=== PATIENT | male | born 1950 | race Caucasian/White ===

== ENCOUNTER → 2021-09-25 | Day surgery (SDC) | payer MEDICARE, OTHER ==
[~2021-09-25] MED LIST: ALPRAZolam 0.25 MG TAB PO PRN; ALPRAZolam 0.5 MG TAB PO PRN; ASPIRIN 325 MG TAB PO ONE; ASPIRIN 81 MG PO SCH; ATORVASTATIN 20 MG TAB PO SCH; ATORVASTATIN 80 MG TAB PO ONE; HEPARIN SODIUM 1,000 UN/ML (10ML VL) IV ONE; HEPARIN SODIUM 1,000 UN/ML (10ML VL) ONE; HEPARIN SODIUM,PORCINE 10,000 UNIT in SODIUM CHLORIDE 0.9% 1,000 ML IRRIGATION PRN; HEPARIN SODIUM,PORCINE 2,500 UNIT in SODIUM CHLORIDE 0.9% 250 ML IRRIGATION PRN; IOPAMIDOL-370 125ML BTL INJ ONE; LIDOCAINE 1% INJ 10MG/ML (5 ML VIAL-PF) SQ ONE; LISINOPRIL-HCTZ 10-12.5 MG 1 EACH TAB PO SCH; METOPROLOL TARTRATE 25 MG TAB PO SCH; MIDAZOLAM 2 MG/2 ML VIAL IV ONE; NITROGLYCERIN SL TABS 0.4 MG TAB SUBLINGUAL PRN; RX INFO: IV CONTRAST WAS GIVEN 1 EACH MISC MISCELLANE PRN; SODIUM CHLORIDE 0.9% 1,000 ML IV ONE; SODIUM CHLORIDE 0.9% 1,000 ML IV SCH; SODIUM CHLORIDE 0.9% 1,000 ML in EMPTY BAG 1 BAG IV SCH; VERAPAMIL 2.5 MG/ML 2 ML AMP ONE; VERAPAMIL SYRINGE (5 MG/10 ML) INTRAARTER ONE; fentaNYL (PF) 50 MCG/ML 2 ML AMP IV ONE; fentaNYL (PF) 50 MCG/ML 2 ML AMP ONE
[2021-09-25 06:36] VITALS: RESP 16; TEMP 98.1
--- NOTE | 2021-09-25 08:15 | P.CARDCATH ---
Date of Procedure: 09/25/21 Description of Procedure: Cardiac Catheterization: The patient is a 71-year-old male with a known history of hypertension and hyperlipidemia who is scheduled to undergo prostate surgery. He underwent an MPI that showed significant stress-induced ischemia in view of that further evaluation was recommended. Recommendations were made regarding cardiac catheterization, the risks and the complications were discussed with the patient who is in full understanding and agreement. Procedure Description: Patient was brought to microbiology lab manager in fasting semi-sedated state after receiving Fentanyl and Benadryl achieiving moderate conscious sedated state. Using Xylocaine Anesthesia and Seldinger technique, a 6-Swedish sheath was introduced in the right radial artery . Subsequently, selective coronary angiography was performed using a 5-Swedish 3.5 bend Anat catheter. Multiple views of the coronary artery including hemiaxial views were obtained. The 5-Swedish pigtail catheter was used to cross the aortic valve and LVEDP was calculated. Left ventriculogram was obtained. Following that, catheter and sheath were removed. Hemostasis was obtained with deployment of TR band . There was no immediate complication. Patient was returned to room in stable condition. Of note, the patient received a total of 4500 units of intravenous heparin as well as intra-arterial verapamil. There was no immediate complications. Findings: Left main: This is a large size vessel, bifurcating into LAD and left circumflex, the distal left main has 10-20% plaque LAD: This vessel has a 99% stenosis proximally following that has diffuse intimal disease until the takeoff of the first diagonal branch that has a 80% stenosis at the takeoff, the LAD with minimal antegrade flow. Left circumflex: This is a nondominant vessel giving rise to 2 obtuse marginal branch, the second one is larger in caliber, after the takeoff of the first diagonal branch there is an eccentric 70% stenosis, the rest of the vessel has no high-grade stenosis. RCA: This is a large dominant vessel, bifurcating into PDA and PLV. The mid RCA has an 80% stenosis, the ostium of the PDA has a 90% stenosis. Collaterals there is collaterals from the RCA to what the LAD as well as ipsilateral collateral Left Ventriculogram: Was performed in the 30 RED view and showed a normal left ventricle size and systolic function, ejection fraction is about 60% Hemodynamics: There was no gradient across the aortic valve, LVEDP 12-16 mmHg Conclusion: 1. Chronically occluded mid LAD severe stenosis proximally and significant stenosis in the first branch 2. Severe stenosis in the RCA 3. Severe disease in the left circumflex 4. Normal left ventricle size and systolic function. Recommendations: In view of the anatomy have recommended to proceed with evaluation for coronary artery bypass grafting. The anterior wall is viable. The findings and recomm endations were discussed with the patient and his family and they are in full understanding and agreement. We will obtain the input of the surgical team. Duration of sedation is 22 minutes.
--- NOTE | 2021-09-25 09:49 | P.GSCN ---
History of Present Illness Consult date: 09/25/21 Reason for Consult: Triple vessel coronary artery disease Requesting physician: Dimitris Diaz History of present illness: This is a 71-year-old active gentleman who follows on an outpatient basis with Dr. Lyn for primary care and Dr. Diaz for cardiology. He has a previous medical history of hypertension, hyperlipidemia, recent diagnosis of prostate cancer, covid positive in July 2021 although asymptomatic at the time and received no treatment, vaccinated and boosted, and never smoker. This gentleman was preparing for prostatectomy next week and needed cardiac clearance. He underwent stress testing which was abnormal suggesting stress induced ischemia involving the inferoapical and septal wall consistent with stress-induced ischemia in the RCA territory. The patient reports no symptoms of chest pain or shortness of breath, states he walks approximately 2 miles per day without difficulty. He was recommended to undergo heart catheterization which was completed today and which demonstrated proximal LAD stenosis 99% with diffuse intimal disease until the takeoff of the first diagonal branch that has 80% stenosis, 70% stenosis to the circumflex after the takeoff of the first branch, mid RCA with 80% stenosis and ostium of the PDA with 90% stenosis. LV gram was performed demonstrating normal left ventricular size and function with ejection fraction approximate 60%, no gradient across the aortic valve, and LVEDP 12-16 mmHg. Due to these findings consultation was placed to Dr. Driscoll from cardiothoracic surgery for surgical revascularization recommendations. Of note the patient did have a transthoracic echocardiogram in March 2021 demonstrating normal left ventricular size and function with EF 65%, no regional wall motion abnormalities, grade 1 diastolic dysfunction, and no valvular pathology. Covid test was obtained upon arrival to extended stay with PCR positive. Patient reports no symptoms. Review of Systems Review of systems was completed and was negative - Cardiovascular Cardiovascular Comment(s): Denies any chest pain, shortness of breath, dizziness, weakness, lower extremity edema Past Medical History Past Medical History: Coronary Artery Disease (CAD), Cancer, Hyperlipidemia, Hypertension Additional Past Medical History / Comment(s): prostate cancer; positive Covid PCR in July 2019, and 09/25/2021 History of Any Multi-Drug Resistant Organisms: None Reported Past Surgical History: No Surgical Hx Reported, Heart Catheterization Additional Past Surgical History / Comment(s): colonoscopy; heart catheterization 09/25/2021 Past Anesthesia/Blood Transfusion Reactions: No Reported Reaction Past Psychological History: No Psychological Hx Reported Smoking Status: Never smoker Past Alcohol Use History: Rare Additional Past Alcohol Use History / Comment(s): Drinks 1-2 glasses of wine per week Past Drug Use History: None Reported - Past Family History Mother Family Medical History: No Reported History Father Family Medical History: No Reported History Medications and Allergies Home Medications Medication Instructions Recorded Confirmed Type Aspirin 81 mg PO DAILY 09/24/21 09/25/21 History Atorvastatin [Lipitor] 20 mg PO DAILY 09/24/21 09/25/21 History Lisinopril-Hctz 10-12.5 mg 1 tab PO DAILY 09/24/21 09/25/21 History [Zestoretic 10-12.5] Metoprolol Tartrate [Lopressor] 25 mg PO BID #180 tablet 09/25/21 09/25/21 Rx Allergies Allergy/AdvReac Type Severity Reaction Status Date / Time No Known Allergies Allergy Verified 09/25/21 15:16 Surgical - Exam Vital Signs Temp Pulse Resp BP Pulse Ox 98.1 F 76 16 123/65 99 09/25/21 06:34 09/25/21 06:34 09/25/21 06:34 09/25/21 06:34 09/25/21 06:34 CONSTITUTIONAL: Awake and alert, appears comfortable, cooperative, well- developed, well-nourished, no pain, no acute distress EYES: Pupils equal, round, reactive to light, normal ocular movement ENT: Moist mucous membranes without oral lesions present NECK: No masses, no bruits, trachea midline RESPIRATORY: Lungs sounds clear to auscultation bilaterally. Respirations even, nonlabored. Currently on room air with oxygen saturation 97%. Strong cough. No chest wall deformities. No clubbing or cyanosis present CARDIOVASCULAR: S1, S2 present. Regular rate and rhythm, sinus rhythm on telemetry. Palpable peripheral pulses bilaterally. No edema present. No calf pain or tenderness noted. No significant lower extremity varicosities noted. Left radial Armen's test less than 8 seconds by pulse oximetry. GASTROINTESTINAL: Abdomen soft, nontender, nondistended without masses or organomegaly noted. There is no rebound or guarding present. Active bowel sounds present 4 quadrants. GENITOURINARY: Deferred INTEGUMENTARY: Skin is warm and dry with evidence of good perfusion. NEUROLOGIC: Cranial nerves II through XII intact, normal coordination, no obvious motor or sensory deficits, speech is normal MUSKULOSKELETAL: Able to move all extremities, strength equal bilaterally, normal posture PSYCHIATRIC: Alert and oriented to person place and time, appropriate affect, intact judgment and insight Results - Labs Abnormal Lab Results - Last 24 Hours (Table) 09/25/21 Range/Units 06:10 Coronavirus (PCR) Detected A (Not Detectd) - Imaging Additional studies: Heart catheterization films reviewed Assessment and Plan Assessment: 1. Triple-vessel coronary artery disease 2. History of hypertension, treated 3. History of hyperlipidemia, treated, cholesterol 154, LDL 95 4. Never smoker 5. History of asymptomatic Covid diagnosis in July 2021, as well as positive Covid PCR 09/25/2021 Plan: The patient was seen and examined at the bedside with Dr. Lee. Chart/diagnostics were reviewed. The case will be discussed in detail with Dr. Driscoll. The usual perioperative course of coronary artery bypass surgery was discussed in detail with the patient and his , risks and benefits reviewed, questions were answered. All lab work was obtained prior to heart catheterization. We will order vein mapping and radial artery mapping, carotid Dopplers, pulmonary function tests, and a CT of the chest without contrast. Once testing has been completed the patient may be discharged home to follow up outpatient for surgery. Dr. Driscoll will be here this afternoon, if the patient is still in the hospital he will meet with the patient today, otherwise we will see on an outpatient basis soon. Recommend continue aspirin, statin, beta adriane therapy added per Dr. Diaz. We will calculate STS risk score and discuss with the patient. More recommendations to follow regarding timing of surgery. Thank you Dr. Diaz for this consult. I have personally seen and examined the patient, performed the documentation and the assessment and plan as written. Number of minutes spent on the visit: 30. EMELI Schultz The patient is a 71 year old asymptomatic male who was undergoing cardiac clearance for surgical treatment of prostate cancer. His stress test was found to be abnormal. Cardiac cath revealed multi-vessel coronary artery disease. A coronary artery bypass was recommended. The risks, benefits, and alternatives to this procedure were discussed with the patient. All of his questions were answered. Pre-op workup is complete and was personally reviewed. Plan for surgery on 09/28/2021 as an outpatient. I have personally seen and examined the patient, reviewed the documentation and the assessment and plan as written. Number of minutes spent on the visit: 45. Alex Driscoll M.D.
[2021-09-25 10:01] LABS: Appearance,Urine Clear (Clear); Bilirubin,Urine Negative (Negative); Blood,Urine Negative (Negative); Color,Urine Colorless; Glucose,Urine (UA) Negative (Negative); Ketones,Urine Negative (Negative); Leukocyte Esterase,Urine Negative (Negative); Nitrite,Urine Negative (Negative); PH, Urine 5.5 (5.0-8.0); Protein,Urine Negative (Negative); Specific Gravity,Urine 1.021 (1.001-1.035); Urobilinogen,Urine <2.0 mg/dL (<2.0)
--- NOTE | 2021-09-25 11:02 | CT ---
EXAMINATION TYPE: CT chest wo con DATE OF EXAM: 09/25/2021 COMPARISON: None HISTORY: 71-year-old male Evaluate aorta pre CABG TECHNIQUE: Contiguous axial scanning of the chest without IV contrast. Coronal and sagittal reconstru ctions performed. CT DLP: 292.7 mGycm Automated exposure control for dose reduction was used. FINDINGS: Heart normal size without pericardial effusion. Three-vessel coronary artery calcifications are prese nt. Ascending aorta normal caliber up to 3.3 cm. There is conventional arterial some branching anatomy. O nly a couple foci of atherosclerotic calcification are present in the thoracic aorta. Upper descendin g thoracic aorta normal caliber at 2.4 cm. Lower descending thoracic aorta normal caliber at 2.0 cm. Mild dependent atelectasis in the lungs. Some strandy atelectasis inferior lingula. No consolidation or pleural effusion. Prominent ingested debris distending the stomach within the visualized upper abdomen. A couple puncta te nonobstructive 2 mm calculi are noted in the upper pole of the right kidney. Bones: Mild anterior endplate spondylosis lower thoracic spine. IMPRESSION: 1. ONLY A COUPLE FOCI OF ATHEROSCLEROTIC CALCIFICATION IN THE THORACIC AORTA. CONVENTIONAL ARCH VESSE L BRANCHING ANATOMY. NO ANEURYSM IS SEEN. 2. CAD WITH THREE-VESSEL CORONARY ARTERY CALCIFICATIONS.
--- NOTE | 2021-09-25 11:44 | US ---
EXAMINATION TYPE: US carotid duplex BILAT DATE OF EXAM: 09/25/2021 COMPARISON: NONE CLINICAL HISTORY: preop cardiac surgery. EXAM MEASUREMENTS: RIGHT: Peak Systolic Velocity (PSV) cm/sec ----- Right CCA: 145 ----- Right ICA: 119 ----- Right ECA: 119 ICA/CCA ratio: .82 RIGHT: End Diastole cm/sec ----- Right CCA: 26.0 ----- Right ICA: 33.4 ----- Right ECA: 16.2 LEFT: Peak Systolic Velocity (PSV) cm/sec ----- Left CCA: 157 ----- Left ICA: 108 ----- Left ECA: 87.2 ICA/CCA ratio: 0.68 LEFT: End Diastole cm/sec ----- Left CCA: 23.0 ----- Left ICA: 14.8 ----- Left ECA: 8.2 VERTEBRALS (direction of flow): Right Vertebral: Antegrade Left Vertebral: Antegrade Rhythm: Normal Elevated velocities in CCA with no significant velocity increases in ICA's seen bilaterally. Suspect mild to moderate peripheral plaque in right carotid bulb. IMPRESSION: No hemodynamically significant stenosis in either internal carotid artery. Suspect und erlying uncontrolled hypertension due to elevated velocities bilateral common carotid arteries. Criteria for Assigning % of Stenosis / Diameter reduction (Estimation based on the indirect measurements of the internal carotid artery velocities (ICA PSV). 1. Normal (no stenosis)=ICA PSV < 125 cm/s: ratio < 2.0: ICA EDV<40 cm/s. 2. Less than 50% stenosis=ICA PSV < 125 cm/s: ratio < 2.0: ICA EDV<40 cm/s. 3. 50 to 69% stenosis=ICA PSV of 125 to 230 cm/s: ration 2.0 ? 4.0: ICA EDV 40-100 cm/s. 4. Greater than 70% stenosis to near occlusion= ICA PSV > 230 cm/s: ratio > 4.0: ICA EDV > 100 cm/s. 5. Near occlusion= ICA PSV velocities may be low or undetectable: variable ratio and ICA EDV. 6. Total occlusion=unable to detect flow.
[2021-09-25 12:38] VITALS: BP 138/85; PULSE 78
--- NOTE | 2021-09-26 06:42 | US ---
EXAMINATION TYPE: US vein mapping BIL DATE OF EXAM: 09/25/2021 11:13 AM COMPARISON: NONE CLINICAL HISTORY: preop cardiac surgery. SIDE PERFORMED: Bilateral TECHNIQUE: Lower extremity saphenous vein is examined and measured utilizing real time linear array sonography. Patient History: Smoker: no Heart Disease: no Previous DVT: no Vascular Surgery: no Discoloration: no Hypertension: yes Diabetes: no Paralysis: no Varicosities: no Edema: no DUPLEX FINDINGS: Greater Saphenous: Color flow seen Measurements in mm: Right Greater Saphenous: Groin: 6.5 x 4.1 mm High Thigh: 5.2 x 4.0 mm Mid Thigh: 2.6 x 2.2 mm Above Knee: 2.9 x 2.2 mm Knee: 3.0 x 3.1 mm Below Knee: 2.8 x 2.4 mm Mid Calf: 2.9 x 2.1 mm At Ankle: 2.3 x 1.5 mm Left Greater Saphenous: Groin: 4.7 x 4.2 mm High Thigh: 4.5 x 4.4 mm Mid Thigh: 4.6 x 3.9 mm Above Knee: 4.3 x 3.8 mm Knee: 3.6 x 3.3 mm Below Knee: 2.9 x 2.7 mm Mid Calf: 2.9 x 2.8 mm At Ankle: 2.3 x 1.8 mm IMPRESSION: 1. Bilateral GSV measurements listed above. 2. Performing surgeon to determine viability as conduit.
--- NOTE | 2021-09-26 06:43 | US ---
EXAMINATION TYPE: Pre-Operative Non-Invasive Evaluation of the hand for Potential Radial Artery Elias boggs, Measurements only DATE OF EXAM: 09/25/2021 11:13 AM CLINICAL HISTORY: measurements only. Precardiac surgery. SIDE PERFORMED: Left TECHNIQUE: Radial artery is measured utilizing real time linear array sonography. Dominant hand: Duplex Findings: Radial Artery: Color flow seen Measurements in mm, transverse view: Ordered left only Proximal: unable to visualize due to IV's Mid: 2.3 x 2.1 mm Distal: 2.5 x 2.2 mm IMPRESSION: 1. Left radial artery measurements listed above. 2. Performing surgeon to determine viability as conduit.
== END | disposition home or self-care (01) ==
LOC: CATHCVL 05:42
PROVIDERS: ATTEND Internal Medicine Interventional Cardiology
DX: I25.10 Atherosclerotic heart disease of native coronary artery without angina pectoris (principal); R94.39 Abnormal result of other cardiovascular function study; C61 Malignant neoplasm of prostate; I10 Essential (primary) hypertension; E78.2 Mixed hyperlipidemia; Z20.822 Contact with and (suspected) exposure to COVID-19; Z86.16 Personal history of COVID-19; Z87.891 Personal history of nicotine dependence; Z79.82 Long term (current) use of aspirin; Z79.899 Other long term (current) drug therapy
CPT/HCPCS: 94150; 93458; 86900; 86901; 86850; 86920; 81003; 87070; 87635; 93931; 93970; 93880; 71250; C1769 ×2; C1894; J2250; J2001; J3010; J1644; Q9967

== ENCOUNTER 2021-09-28 05:36 | Inpatient (IN) | payer MEDICARE, OTHER ==
[2021-09-25 15:54] VITALS: BMI 25.8
[2021-09-28] MEDS ORDERED: NITROGLYCERIN SL TABS 0.4 MG TAB SUBLINGUAL ONE (06:00)
[2021-09-28] MEDS ORDERED: NITROGLYCERIN-D5W PMX 25 MG/250 ML BTL IV ONE (06:00)
[2021-09-28] MEDS ORDERED: ceFAZolin 1,000 MG in SODIUM CHLORIDE 0.9% IRRIGATIO 1,000 ML IRRIGATION ONE (06:00)
[2021-09-28] MEDS ORDERED: METOPROLOL TARTRATE 12.5 MG TAB PO ONE (06:00)
[2021-09-28] MEDS ORDERED: ALBUMIN HUMAN 5% 500 ML IVPB ONE (06:00)
[2021-09-28] MEDS ORDERED: ELECTROLYTE-A SOLUTION 1,000 ML with POTASSIUM CHLORIDE 40 MEQ, MAGNESIUM SULFATE 16 ME... IV ONE ×5 (06:00)
[2021-09-28] MEDS ORDERED: PAPAVERINE 360 MG in SODIUM CHLORIDE 0.9% 90 ML IV ONE (06:00)
[2021-09-28] MEDS ORDERED: PROTAMINE SULFATE 250 MG in EMPTY BAG 1 BAG IV ONE (06:00)
[2021-09-28] MEDS ORDERED: CALCIUM CHLORIDE 100 MG/ML 10 ML SYRINGE IV ONE (06:00)
[2021-09-28] MEDS ORDERED: PHENYLEPHRINE 10 MG/ML VIAL IV ONE (06:00)
[2021-09-28] MEDS ORDERED: NITROGLYCERIN-D5W PMX 50 MG in DEXTROSE/WATER 1 250ML.BAG IV ONE (06:00)
[2021-09-28] MEDS ORDERED: CLEVIDIPINE BUTYRATE 25 MG in EMPTY BAG 1 BAG IV ONE (06:00)
[2021-09-28] MEDS ORDERED: LACTATED RINGERS 1,000 ML IV ONE (06:00)
[2021-09-28] MEDS ORDERED: HEPARIN SODIUM,PORCINE 5,000 UNIT in SODIUM CHLORIDE 0.9% 500 ML 500 ML IV ONE (06:00)
[2021-09-28] MEDS ORDERED: TRANEXAMIC ACID 2,000 MG in SODIUM CHLORIDE 0.9% 80 ML IV ONE ×4 (06:00)
[2021-09-28] MEDS ORDERED: HEPARIN SODIUM 1,000 UN/ML (10ML VL) IV ONE (06:00)
[2021-09-28] MEDS ORDERED: ATORVASTATIN 10 MG TAB PO ONE (06:00)
[2021-09-28] MEDS ORDERED: propofoL 1,000 MG/100 ML VIAL IV ONE (06:00)
[2021-09-28] MEDS ORDERED: CHLORHEXIDINE GLUCONATE 15 ML CUP MUCOUS MEM ONE (06:00)
[2021-09-28] MEDS ORDERED: DILTIAZEM 125 MG in SODIUM CHLORIDE 0.9% 100 ML IV ONE (06:00)
[2021-09-28] MEDS ORDERED: ASPIRIN 325 MG TAB PO ONE (06:00)
[2021-09-28] MEDS ORDERED: MUPIROCIN 2% OINT 22 GM TUBE NASAL ONE (06:00)
[2021-09-28] MEDS ORDERED: MANNITOL 25% 12.5 GM/50 ML VIAL IV ONE (06:00)
[2021-09-28] MEDS ORDERED: ALBUMIN HUMAN 25% 50 ML IV ONE (06:00)
[2021-09-28] MEDS ORDERED: ELECTROLYTE-A SOLUTION 1,000 ML with POTASSIUM CHLORIDE 100 MEQ, MAGNESIUM SULFATE 16 M... IV ONE ×5 (06:00)
[2021-09-28] MEDS ORDERED: MAGNESIUM SULFATE 16.24 MEQ in EMPTY SYRINGE 1 SYR IV ONE (06:00)
[2021-09-28] MEDS ORDERED: PHENYLEPHRINE 40 MG in SODIUM CHLORIDE 0.9% 250 ML IV ONE (06:00)
[2021-09-28] MEDS ORDERED: PROTAMINE SULFATE 10 MG/ML 25 ML VIAL IV ONE (06:00)
[2021-09-28] MEDS ORDERED: INSULIN REGULAR 100 UNIT in SODIUM CHLORIDE 0.9% 100 ML IV ONE (06:00)
[2021-09-28] MEDS ORDERED: SODIUM BICARB 8.4% 50 ML SYR (1 MEQ/ML) IV ONE (06:00)
[2021-09-28] MEDS ORDERED: SODIUM CHLORIDE 0.9% 1,000 ML IV ONE (06:00)
[2021-09-28] MEDS ORDERED: NOREPINEPHRINE 4 MG in SODIUM CHLORIDE 0.9% 250 ML IV ONE (06:00)
[2021-09-28 06:02] VITALS: BP 133/79; PULSE 64; RESP 16; TEMP 97.6
== END 2021-09-28 08:42 | disposition home or self-care (01) | DRG 302 ==
LOC: 2ORMAIN 05:36
PROVIDERS: ADMIT Surgery; ATTEND Surgery
DX: I25.10 Atherosclerotic heart disease of native coronary artery without angina pectoris (principal); U07.1 COVID-19; Z53.09 Procedure and treatment not carried out because of other contraindication; I10 Essential (primary) hypertension; E78.5 Hyperlipidemia, unspecified; Z85.46 Personal history of malignant neoplasm of prostate
CPT/HCPCS: 71250; 81003; 86850; 86900; 86901; 86920; 87070; 87635; 93458; 93880; 93970; 94150

== ENCOUNTER 2021-10-01 05:44 | Inpatient (IN) | payer MEDICARE, OTHER ==
[~2021-10-01 05:44] MED LIST changes: +ALBUMIN HUMAN 25% 50 ML IV ONE; +ALBUMIN HUMAN 5% 500 ML IVPB ONE; -ALPRAZolam 0.25 MG TAB PO PRN; -ALPRAZolam 0.5 MG TAB PO PRN; -ASPIRIN 81 MG PO SCH; +ATORVASTATIN 10 MG TAB PO ONE; -ATORVASTATIN 20 MG TAB PO SCH; -ATORVASTATIN 80 MG TAB PO ONE; +CALCIUM CHLORIDE 100 MG/ML 10 ML SYRINGE IV ONE; +CHLORHEXIDINE GLUCONATE 15 ML CUP MUCOUS MEM ONE; +CLEVIDIPINE BUTYRATE 25 MG in EMPTY BAG 1 BAG IV ONE; +DILTIAZEM 125 MG in SODIUM CHLORIDE 0.9% 100 ML IV ONE; +ELECTROLYTE-A SOLUTION 1,000 ML with POTASSIUM CHLORIDE 100 MEQ, MAGNESIUM SULFATE 16 M... IV ONE; +ELECTROLYTE-A SOLUTION 1,000 ML with POTASSIUM CHLORIDE 40 MEQ, MAGNESIUM SULFATE 16 ME... IV ONE; -HEPARIN SODIUM 1,000 UN/ML (10ML VL) ONE; -HEPARIN SODIUM,PORCINE 10,000 UNIT in SODIUM CHLORIDE 0.9% 1,000 ML IRRIGATION PRN; -HEPARIN SODIUM,PORCINE 2,500 UNIT in SODIUM CHLORIDE 0.9% 250 ML IRRIGATION PRN; +HEPARIN SODIUM,PORCINE 5,000 UNIT in SODIUM CHLORIDE 0.9% 500 ML 500 ML IV ONE; +INSULIN REGULAR 100 UNIT in SODIUM CHLORIDE 0.9% 100 ML IV ONE; -IOPAMIDOL-370 125ML BTL INJ ONE; +LACTATED RINGERS 1,000 ML IV ONE; -LIDOCAINE 1% INJ 10MG/ML (5 ML VIAL-PF) SQ ONE; -LISINOPRIL-HCTZ 10-12.5 MG 1 EACH TAB PO SCH; +MAGNESIUM SULFATE 16.24 MEQ in EMPTY SYRINGE 1 SYR IV ONE; +MANNITOL 25% 12.5 GM/50 ML VIAL IV ONE; +METOPROLOL TARTRATE 12.5 MG TAB PO ONE; -METOPROLOL TARTRATE 25 MG TAB PO SCH; -MIDAZOLAM 2 MG/2 ML VIAL IV ONE; +NITROGLYCERIN SL TABS 0.4 MG TAB SUBLINGUAL ONE; -NITROGLYCERIN SL TABS 0.4 MG TAB SUBLINGUAL PRN; +NITROGLYCERIN-D5W PMX 25 MG/250 ML BTL IV ONE; +NITROGLYCERIN-D5W PMX 50 MG in DEXTROSE/WATER 1 250ML.BAG IV ONE; +NOREPINEPHRINE 4 MG in SODIUM CHLORIDE 0.9% 250 ML IV ONE; +PAPAVERINE 360 MG in SODIUM CHLORIDE 0.9% 90 ML IV ONE; +PHENYLEPHRINE 10 MG/ML VIAL IV ONE; +PHENYLEPHRINE 40 MG in SODIUM CHLORIDE 0.9% 250 ML IV ONE; +PROTAMINE SULFATE 10 MG/ML 25 ML VIAL IV ONE; +PROTAMINE SULFATE 250 MG in EMPTY BAG 1 BAG IV ONE; -RX INFO: IV CONTRAST WAS GIVEN 1 EACH MISC MISCELLANE PRN; +SODIUM BICARB 8.4% 50 ML SYR (1 MEQ/ML) IV ONE; -SODIUM CHLORIDE 0.9% 1,000 ML IV SCH; -SODIUM CHLORIDE 0.9% 1,000 ML in EMPTY BAG 1 BAG IV SCH; +TRANEXAMIC ACID 2,000 MG in SODIUM CHLORIDE 0.9% 80 ML IV ONE; -VERAPAMIL 2.5 MG/ML 2 ML AMP ONE; -VERAPAMIL SYRINGE (5 MG/10 ML) INTRAARTER ONE; +ceFAZolin 1,000 MG in SODIUM CHLORIDE 0.9% IRRIGATIO 1,000 ML IRRIGATION ONE; -fentaNYL (PF) 50 MCG/ML 2 ML AMP IV ONE; -fentaNYL (PF) 50 MCG/ML 2 ML AMP ONE; +propofoL 1,000 MG/100 ML VIAL IV ONE
[2021-10-01] MEDS ORDERED: MUPIROCIN 2% OINT 22 GM TUBE NASAL ONE (06:00)
[2021-10-01] MEDS ORDERED: LACTATED RINGERS 1,000 ML IV ONE (06:04)
[2021-10-01 06:57] LABS: INR 0.9 (<1.2); Prothrombin Time 9.9 sec (9.0-12.0)
[2021-10-01] MEDS ORDERED: VECURONIUM 10 MG VIAL IV ONE (07:31)
[2021-10-01] MEDS ORDERED: NITROGLYCERIN-D5W PMX 50 MG/250 ML BOTTLE IV ONE (07:31)
[2021-10-01] MEDS ORDERED: SODIUM CHLORIDE 0.9% IRRIG 1,000 ML BTL IRRIGATION ONE (07:31)
[2021-10-01] MEDS ORDERED: TRANEXAMIC ACID IN NACL,ISO-OS 1,000 MG/100 ML BAG ONE (07:31)
[2021-10-01] MEDS ORDERED: PROPOFOL 10 MG/ML 20 ML VIAL IV ONE (07:31)
[2021-10-01] MEDS ORDERED: fentaNYL (PF) 50 MCG/ML 50 ML VIAL ONE (07:31)
[2021-10-01] MEDS ORDERED: HEPARIN SODIUM,PORCINE 10,000 UNIT/ML 1 ML VIAL ONE (07:31)
[2021-10-01] MEDS ORDERED: ELECTROLYTE-R (PH 7.4) 1,000 ML IV.SOLN IV ONE (07:31)
[2021-10-01] MEDS ORDERED: fentaNYL (PF) 50 MCG/ML 2 ML AMP ONE (07:31)
[2021-10-01] MEDS ORDERED: CALCIUM CHLORIDE 100 MG/ML 10 ML SYRINGE ONE (07:31)
[2021-10-01] MEDS ORDERED: ePHEDrine 50 MG/ML 1 ML VIAL ONE (07:31)
[2021-10-01] MEDS ORDERED: ALBUMIN HUMAN 5% (25gm) 500 ML VIAL IVPB ONE (07:31)
[2021-10-01] MEDS ORDERED: PROTAMINE SULFATE 10 MG/ML 25 ML VIAL IV ONE (07:31)
[2021-10-01] MEDS ORDERED: MIDAZOLAM HCL 10 MG/10 ML VIAL ONE (07:31)
[2021-10-01] MEDS ORDERED: SUCCINYLCHOLINE CHLORIDE 100 MG/5 ML SYR IV ONE (07:31)
[2021-10-01] MEDS ORDERED: Potassium Replacement Protocol 1 EACH MISC MISCELLANE PRN (14:07)
[2021-10-01] MEDS ORDERED: ONDANSETRON 4 MG/2 ML VIAL IVP PRN (14:07)
[2021-10-01] MEDS ORDERED: DEXMEDETOMIDINE/0.9% NACL(PMX) 400 MCG in EMPTY BAG 1 BAG IV SCH (14:07)
[2021-10-01] MEDS ORDERED: hydrALAZINE HCL 20 MG/ML 1 ML VIAL IVP PRN (14:07)
[2021-10-01] MEDS ORDERED: DEXTROSE 5% IN WATER 100 ML with AMIODARONE 150 MG IV PRN (14:07)
[2021-10-01] MEDS ORDERED: AMIODARONE 360 MG in DEXTROSE 5% IN WATER 200 ML IV PRN ×2 (14:07)
[2021-10-01] MEDS ORDERED: Magnesium Replacement Protocol 1 EACH MISC MISCELLANE PRN (14:07)
[2021-10-01] MEDS ORDERED: METOCLOPRAMIDE 5 MG/ML 2 ML VIAL IVP PRN (14:07)
[2021-10-01] MEDS ORDERED: AMIODARONE 450 MG in DEXTROSE 5% IN WATER 250 ML IV PRN ×2 (14:07)
[2021-10-01] MEDS ORDERED: IPRATROPIUM-ALBUTEROL 3 ML NEB INHALATION PRN (14:07)
[2021-10-01] MEDS ORDERED: BENZOCAINE/MENTHOL LOZENG 1 EACH LOZENGE MUCOUS MEM PRN (14:07)
[2021-10-01] MEDS ORDERED: CLEVIDIPINE BUTYRATE 25 MG in EMPTY BAG 1 BAG IV SCH (14:07)
[2021-10-01] MEDS ORDERED: NITROGLYCERIN-D5W PMX 50 MG in DEXTROSE/WATER 1 250ML.BAG IV SCH (14:07)
[2021-10-01 14:32] LABS: Glucose,Whole Blood 138 mg/dL (70-110)
[2021-10-01 14:56] LABS: Basophils % (A) 0 %; Eosinophils # (A) 0.1 k/uL (0-0.7); Eosinophils % (A) 1 %; HCT 25.5 % (39.0-53.0); HGB 8.6 gm/dL (13.0-17.5); Lymphocytes # (A) 1.2 k/uL (1.0-4.8); Lymphocytes % (A) 12 %; MCH 31.4 pg (25.0-35.0); MCHC 33.6 g/dL (31.0-37.0); MCV 93.4 fL (80.0-100.0); Mean Platelet Volume 8.7; Monocytes # (A) 0.5 k/uL (0-1.0); Monocytes % (A) 5 %; Neutrophils # (A) 8.4 k/uL (1.3-7.7); Neutrophils % (A) 82 %; Platelet Count 109 k/uL (150-450); RBC 2.73 m/uL (4.30-5.90); RDW 13.7 % (11.5-15.5); WBC 10.2 k/uL (3.8-10.6)
[2021-10-01] MEDS ORDERED: INSULIN REGULAR 100 UNIT in SODIUM CHLORIDE 0.9% 100 ML IV SCH (15:00)
[2021-10-01] MEDS ORDERED: DILTIAZEM 125 MG in SODIUM CHLORIDE 0.9% 100 ML IV SCH (15:00)
[2021-10-01] MEDS ORDERED: NOREPINEPHRINE 4 MG in SODIUM CHLORIDE 0.9% 250 ML IV SCH (15:00)
[2021-10-01 15:06] LABS: Ionized Calcium 4.4 mg/dL (4.5-5.3)
[2021-10-01 15:07] LABS: INR 1.3 (<1.2); Partial Thromboplastin Time 34.3 sec (22.0-30.0); Prothrombin Time 13.5 sec (9.0-12.0)
--- NOTE | 2021-10-01 15:09 | XR ---
EXAMINATION TYPE: XR chest 1V portable DATE OF EXAM: 10/01/2021 HISTORY: Post Op CABG COMPARISON: NONE TECHNIQUE: Single view of the chest is submitted. FINDINGS: Bilateral chest tubes, mediastinal drains, [place]Michael[place] catheter, endotracheal tube, NG tube, left atria l clip and sternotomy wires are all appropriately in place. No evidence for pneumothorax. Post operative changes of CABG. No sizeable pneumothorax. Scattered Pleural-parenchymal opacities may reflect atelectasis. The heart mildly enlarged. IMPRESSION: 1. Post operative changes of CABG.
[2021-10-01 15:12] LABS: ALT 12 U/L (4-49); AST 36 U/L (17-59); African American GFR (CKD) >90 (>60 ml/min/1.73 sqM); Alkaline Phosphatase 26 U/L (38-126); Anion Gap 3 mmol/L; Blood Urea Nitrogen 14 mg/dL (9-20); Calcium 6.9 mg/dL (8.4-10.2); Carbon Dioxide 23 mmol/L (22-30); Chloride 110 mmol/L (98-107); Glucose 119 mg/dL (74-99); Magnesium 2.5 mg/dL (1.6-2.3); Non-African American GFR(CKD) >90 (>60 ml/min/1.73 sqM); Potassium 4.3 mmol/L (3.5-5.1); Sodium 136 mmol/L (137-145); Total Bilirubin 0.6 mg/dL (0.2-1.3); Total Protein 3.5 g/dL (6.3-8.2)
[2021-10-01] MEDS: LACTATED RINGERS 1,000 ML IV SCH (15:35)
[2021-10-01] MEDS: ALBUMIN HUMAN 5% 250 ML in EMPTY BAG 1 BAG IVPB PRN ×4 (15:36→19:08)
[2021-10-01] MEDS ORDERED: CALCIUM GLUCONATE IN NACL 1 GM in SALINE 1 100ML.BAG IVPB ONE (15:45)
[2021-10-01] MEDS ORDERED: IPRATROPIUM-ALBUTEROL 3 ML NEB INHALATION SCH (16:00)
[2021-10-01 16:19] LABS: Glucose,Whole Blood 181 mg/dL (70-110)
[2021-10-01 17:21] LABS: Glucose,Whole Blood 166 mg/dL (70-110)
[2021-10-01] MEDS: ACETAMINOPHEN IV (For NPO) 1,000 MG in EMPTY BAG 1 BAG IVPB SCH ×2 (17:49→23:50)
[2021-10-01] MEDS: HEPARIN SODIUM,PORCINE/PF 5,000 UNIT/0.5 ML SYRINGE SQ SCH ×2 (17:49→23:50)
[2021-10-01 18:02] LABS: Glucose,Whole Blood 156 mg/dL (70-110)
[2021-10-01 18:11] LABS: Basophils % (A) 0 %; Eosinophils % (A) 0 %; HCT 22.7 % (39.0-53.0); HGB 7.4 gm/dL (13.0-17.5); Lymphocytes # (A) 0.7 k/uL (1.0-4.8); Lymphocytes % (A) 7 %; MCH 29.9 pg (25.0-35.0); MCHC 32.9 g/dL (31.0-37.0); Mean Platelet Volume 8.4; Monocytes # (A) 0.5 k/uL (0-1.0); Monocytes % (A) 5 %; Neutrophils # (A) 9.4 k/uL (1.3-7.7); Neutrophils % (A) 88 %; Platelet Count 116 k/uL (150-450); RBC 2.49 m/uL (4.30-5.90); RDW 13.5 % (11.5-15.5); WBC 10.7 k/uL (3.8-10.6)
[2021-10-01 19:07] LABS: Glucose,Whole Blood 156 mg/dL (70-110)
[2021-10-01] MEDS: IPRATROPIUM-ALBUTEROL 3 ML NEB INHALATION SCH (19:24)
[2021-10-01 19:54] LABS: Glucose,Whole Blood 147 mg/dL (70-110)
[2021-10-01 19:54] LABS: Basophils % (A) 0 %; Eosinophils % (A) 0 %; HCT 21.9 % (39.0-53.0); HGB 7.2 gm/dL (13.0-17.5); Lymphocytes # (A) 0.5 k/uL (1.0-4.8); Lymphocytes % (A) 5 %; MCH 30.7 pg (25.0-35.0); MCHC 32.8 g/dL (31.0-37.0); MCV 93.6 fL (80.0-100.0); Mean Platelet Volume 9.9; Monocytes # (A) 0.6 k/uL (0-1.0); Monocytes % (A) 6 %; Neutrophils # (A) 9.3 k/uL (1.3-7.7); Neutrophils % (A) 89 %; Platelet Count 119 k/uL (150-450); RBC 2.34 m/uL (4.30-5.90); WBC 10.4 k/uL (3.8-10.6)
--- NOTE | 2021-10-01 20:49 | OP ---
OPERATIVE REPORT DATE OF SURGERY: 10/01/2021 PREOPERATIVE DIAGNOSIS: Coronary artery disease. POSTOPERATIVE DIAGNOSIS: Coronary artery disease. PROCEDURE: 1. Coronary artery bypass grafting x4 vessels (left internal mammary artery to diagonal artery, saphenous vein graft to left anterior descending artery, radial artery to obtuse marginal artery, saphenous vein graft to posterior descending artery). 2. Endoscopic harvest of left radial artery. 3. Endoscopic harvest of bilateral greater saphenous vein. 4. Ligation of left atrial appendage using a 35 mm AtriClip. 5. Epiaortic ultrasound. 6. Transesophageal echocardiogram. SURGEON: Alex Driscoll M.D. ASSISTANTS: 1. ANNELIESE Bay. 2. Cooper Gilliland PA-C. ANESTHESIA: General. SPECIMEN: None. COMPLICATIONS: None. INDICATION: The patient is a 71-year-old male with a history of hyperlipidemia and hypertension who was recently diagnosed with prostate cancer. As part of his preoperative workup, he was found to have an abnormal stress test. Cardiac catheterization revealed multivessel coronary artery disease. His LAD was essentially occluded with only faint collateral filling noted. A coronary artery bypass was recommended. The risks, benefits and alternatives of this procedure were discussed with the patient. All of his questions were answered. Consent was obtained. FINDINGS: The left internal mammary artery was a good conduit with brisk flow. The saphenous vein was a good conduit. The LAD was extremely small in diameter and measured 1.0 mm. The diagonal artery measured 1.5 mm. The obtuse marginal artery measured 1.5 mm. The posterior descending artery measured 1.3 mm. PROCEDURE IN DETAIL: The patient was taken to the operating room and placed supine on the operating table. After the induction of general anesthesia, he was prepped and draped in the usual sterile fashion. Preoperative transesophageal echocardiogram confirmed a preserved ejection with no significant valvular pathology. A median sternotomy was performed. The left internal mammary artery was harvested in the standard fashion, taking care to clip all branches. Intravenous heparin was administered. The vessel was transected distally revealing brisk flow. Simultaneously, greater saphenous vein was harvested from the left lower extremity using endoscopic technique. It became quite small below the knee and therefore additional vein was harvested in a similar fashion from the right thigh. In addition, radial artery was harvested from the left upper extremity, again using endoscopic technique. All branches were tied. A pericardial cradle was created. The ascending aorta was palpated. There was no significant calcific plaque noted. Epiaortic ultrasound was then performed on the ascending aorta. Again no calcific plaque or atheromatous disease was identified. An arterial cannula was placed in the distal ascending aorta. A venous cannula was placed through the right atrial appendage directed into the IVC. Both antegrade and retrograde catheters were placed as well. The patient was then placed on cardiopulmonary bypass with good decompression of the heart. The aortic crossclamp was applied. Cold blood potassium cardioplegia was delivered in both antegrade and retrograde fashion to achieve arrest of the heart. Of note, cardioplegia was delivered every 15 to 20 minutes while the patient remained under crossclamp. I began by identifying the left atrial appendage. A 35 mm AtriClip was placed across its base to ensure ligation. Next, attention was turned to the lateral wall. The obtuse marginal artery was identified and dissected free proximally, prior to its bifurcation. A small arteriotomy was created. This vessel accepted a 1.0 mm probe. Using the radial artery, an end-to-side anastomosis was created. This was performed using a running 7-0 Prolene suture. The graft was hemostatic and had great flow. Next, attention turned to the inferior wall. The posterior descending artery was identified. It was dissected free. A small arteriotomy was created. This vessel accepted a 1.0 mm probe. Using saphenous vein in a reverse fashion, an end-to-side anastomosis was created. This was performed using a running 7-0 Prolene suture. The graft was hemostatic and had great flow. Next, attention was turned the anterior wall. Both the diagonal artery and LAD were identified. The diagonal artery was dissected free. It was a good- sized vessel supplying significant territory. The LAD appeared to be a dual system and both branches were extremely small in diameter. I dissected them both out, and neither was larger than 1.0 mm. For this reason, I elected to place the mammary artery to the diagonal artery. A small arteriotomy was created in the diagonal artery. This vessel accepted a 1.5 mm probe. Using the left internal mammary artery, an end-to- side anastomosis was created. This was performed using a running 8-0 Prolene suture. The graft was hemostatic. The mammary pedicle was then tacked down to the anterior surface of the heart. Next, the left anterior descending artery was identified in its mid region. A small arteriotomy was created. It barely accepted a 1.0 mm probe. Using saphenous vein in a reverse fashion, an end-to-side anastomosis was created. This was performed using a running 7-0 Prolene suture. The graft was hemostatic and had great flow. Attention was then turned to the proximal anastomoses. These were all performed in end- to-side fashion using running 6-0 Prolene suture. One liter of warm blood was delivered in retrograde fashion. Both lidocaine and magnesium were administered as well. The aortic acrossclamp was removed. The vein grafts were de-aired in the standard fashion. Distal anastomoses were inspected and appeared to be hemostatic. Temporary atrial and ventricular pacing wires were placed and brought through the skin. The patient was then weaned off cardiopulmonary bypass. He with the addition of low-dose Levophed. At this point, his hematocrit was 19 and his blood pressure was marginal. For this reason, one unit of packed RBCs was transfused, which improved his hypotension. Follow-up transesophageal cardiogram confirmed good left ventricular ejection fraction and no valvular pathology. Protamine was administered. There were no adverse reactions. The remaining cannulas were then removed. The mediastinum was copiously irrigated with warm saline solution. Again all surgical sites were inspected and appeared to be hemostatic. Soft tissue was reapproximated over the ascending aorta as well as over the apex of the heart. Chest tubes were placed in both the left and right pleural spaces as well as the mediastinum. These were all secured to the skin using sutures. The sternum was then reapproximated using the Corona cable system. The cables were placed in a [id number] fashion. At the completion of the closure, the sternum was well aligned. The remainder of the wound was closed in layers. A sterile dressing was applied. The patient appeared to tolerate the procedure well. There were no immediate complications. He returned to the ICU in critical but stable condition. He was on intravenous nitroglycerin, intravenous Cardizem, and low-dose Levophed. MMODL / IJN: [id number] / MTDD
[2021-10-01 21:04] LABS: Glucose,Whole Blood 140 mg/dL (70-110)
[2021-10-01 21:45] LABS: Glucose,Whole Blood 138 mg/dL (70-110)
[2021-10-01 22:51] LABS: Glucose,Whole Blood 134 mg/dL (70-110)
[2021-10-01 23:59] LABS: Glucose,Whole Blood 138 mg/dL (70-110)
--- NOTE | 2021-10-02 00:20 | P.CONS ---
History of Present Illness - Reason for Consult Consult date: 10/01/21 medical management Requesting physician: Alex Driscoll - Chief Complaint post quadruple bypass surgery, CAD, acute respiratory failure post CABG, hy - History of Present Illness HISTORY OF PRESENT ILLNESS 71-year-old male with past medical history of hypertension, hyperlipidemia and BPH who was diagnosed with prostate cancer was in the process of clearance for prostate surgery, patient was referred for stress test which was positive ended up having a heart catheter on September 25 finding was consistent with occluded mid LAD with severe stenosis of the proximal significant stenosis of the first branch severe stenosis of the RCA and the left circumflex with normal left ventricular size and systolic function. Patient was referred to cardiothoracic surgery was seen and evaluated and schedule an elective surgery for triple to quadruple bypass surgery which was done today successfully patient was placed on mechanical ventilation, had 3 chest tube, was mildly hyperglycemic place on insulin drip, blood pressure and pulse rate reasonably controlled patient does not seem in any pain currently sedated on mechanical ventilation. REVIEW OF SYSTEMS Constitutional: No fever, no chills, no night sweats. patient is sedated on mechanical ventilation currently. EENT: No headache. No blurred vision or double vision, no loss of vision. No loss of Hearing, no ringing in the ears, no dizziness. No nasal drainage or congestion. No epistaxis. No sore throat. Lungs: still on mechanical ventilation, no hypoxia. Patient has 3 chest tube as well. Cardiovascular: post bypass surgery, been watch and cardiac monitor technician with no major arrhythmia. Abdominal: No abdominal pain. No nausea, vomiting. No diarrhea. No constipation. No bloody or tarry stools.. No loss of appetite. Genitourinary: No dysuria, increased frequency, urgency. No urinary retention. Musculoskeletal: No myalgias. No muscle weakness, no gait dysfunction, no frequent falls. No back pain. No neck pain. Integumentary: No wounds, no lesions. No rash or pruritus. No unusual bruising. No change in hair or nails. Neurologic: he is sedated on mechanical ventilation. Psychiatric: patient is sedated not respond currently. Endocrine: hyperglycemia on insulin pump. SOCIAL HISTORY he never smoked, no alcohol abuse. FAMILY HISTORY PHYSICAL EXAMINATION Gen: This is well-developed sedated had an ET tube on on mechanical ventilation does not look in any distress or pain. HEENT: Head is atraumatic, normocephalic. Pupils equal, round. Sclerae is anicteric. [address] NECK: Supple. No JVD. No lymphadenopathy. No thyromegaly. LUNGS: decreased breath sound bilaterally especially in the left side with no crackles or wheezes, basis 3 chest tube currently connected to under seawater. HEART: Regular rate and rhythm. No murmur. ABDOMEN: Soft. Bowel sounds are present. No masses. No tenderness. EXTREMITIES: No pedal edema. No calf tenderness. NEUROLOGICAL: he is sedated on mechanical ventilation. ASSESSMENT AND PLAN - post quadruple bypass surgery: Continue mechanical ventilation, still have chest tube, a she is still on multi IV drugs at this point but hemodynamically stable. - Multiple vessel CAD finding via abnormal stress test and heart catheter patient has no left ventricle damage or lack of function. We'll continue [facility] management. - Post surgery acute respiratory failure: Continue mechanical ventilation for now hopefully patient be weaning off the next few hours. - Hypertension: Was on lisinopril HCTZ and metoprolol titrate resume both medication. - Hyperlipidemia: Patient was on atorvastatin 20 mg a day probably will increase the dose to 80 mg post surgery. - Hyperglycemia: Continue insulin drip keep his blood sugar less than 120. - Mild anemia: Mostly iron deficient and within expected post surgery no need for blood transfusion currently. - GI prophylaxis: Start patient on Protonix 40 mg daily. - DVT prophylaxis: Remain on heparin subcutaneous. CODE STATUS: Full code. Dr. Driscoll thank you very much for the consult if I can be any further help you please let me know. Past Medical History Past Medical History: Coronary Artery Disease (CAD), Cancer, Hyperlipidemia, Hypertension Additional Past Medical History / Comment(s): prostate cancer; positive Covid PCR in July 2019, and 09/25/2021 History of Any Multi-Drug Resistant Organisms: None Reported Past Surgical History: No Surgical Hx Reported, Heart Catheterization Additional Past Surgical History / Comment(s): colonoscopy; heart catheterization 09/25/2021 Past Anesthesia/Blood Transfusion Reactions: No Reported Reaction Smoking Status: Never smoker - Past Family History Mother Family Medical History: No Reported History Father Family Medical History: No Reported History Medications and Allergies Home Medications Medication Instructions Recorded Confirmed Type Aspirin 81 mg PO DAILY 09/24/21 10/01/21 History Atorvastatin [Lipitor] 20 mg PO DAILY 09/24/21 10/01/21 History Lisinopril-Hctz 10-12.5 mg 1 tab PO DAILY 09/24/21 10/01/21 History [Zestoretic 10-12.5] Metoprolol Tartrate [Lopressor] 25 mg PO BID #180 tablet 09/25/21 10/01/21 Rx Allergies Allergy/AdvReac Type Severity Reaction Status Date / Time No Known Allergies Allergy Verified 10/01/21 06:30 Physical Exam Vitals: Vital Signs Temp Pulse Pulse Resp BP BP BP 10/01/21 17:12 98.6 F 97 22 90/47 10/01/21 17:02 98.6 F 92 18 89/45 10/01/21 16:21 82 10/01/21 16:11 82 10/01/21 16:00 97.3 F L 80 19 10/01/21 15:30 80 26 H 10/01/21 15:05 10/01/21 15:04 10/01/21 15:00 96.1 F L 80 15 84/51 10/01/21 14:30 80 14 10/01/21 14:26 10/01/21 14:24 80 9 L 10/01/21 14:22 10/01/21 13:21 98.6 F 90 18 90/45 10/01/21 06:10 96.5 F L 64 18 134/77 142/69 Pulse Ox FiO2 10/01/21 17:12 100 10/01/21 17:02 100 10/01/21 16:21 10/01/21 16:11 10/01/21 16:00 100 50 10/01/21 15:30 100 10/01/21 15:05 50 10/01/21 15:04 50 10/01/21 15:00 100 10/01/21 14:30 100 10/01/21 14:26 100 10/01/21 14:24 10/01/21 14:22 100 10/01/21 13:21 100 10/01/21 06:10 97 Intake and Output 10/01/21 10/01/21 10/01/21 06:59 14:59 22:59 Intake Total 363 0 Output Total 1800 Balance -1437 0 Intake: IV 53 Blood Product 310 0 Pooled Cryoprecipitate 0 Unit [id number] As-1 Unit 310 [id number] Output: Urine 800 Estimated Blood Loss 1000 Other: Weight 82 kg ABP, PAP, CO, CI - Last 8 Hours Arterial Blood Pressure 89/48 Arterial Blood Pressure 91/51 Arterial Blood Pressure 28/20 Arterial Blood Pressure 115/62 Pulmonary Artery Pressure 40/23 Pulmonary Artery Pressure 36/19 Pulmonary Artery Pressure 32/16 Pulmonary Artery Pressure 28/14 Cardiac Output 4.3 Cardiac Output 4.3 Cardiac Output 3.7 Cardiac Index 2.2 Cardiac Index 2.2 Cardiac Index 1.9 Results CBC & Chem 7: 10/01/21 19:45 10/01/21 14:50 Labs: Abnormal Lab Results - Last 24 Hours (Table) 09/25/21 10/01/21 10/01/21 Range/Units 13:31 14:30 14:30 RBC 2.73 L (4.30-5.90) m/uL Hgb 8.6 L (13.0-17.5) gm/dL Hct 25.5 L (39.0-53.0) % Plt Count 109 L (150-450) k/uL Neutrophils # 8.4 H (1.3-7.7) k/uL PT 13.5 H (9.0-12.0) sec INR 1.3 H (<1.2) APTT 34.3 H (22.0-30.0) sec Fibrinogen 120 L (200-500) mg/dL Sodium (137-145) mmol/L Chloride (98-107) mmol/L Glucose (74-99) mg/dL POC Glucose (mg/dL) (70-110) mg/dL Calcium (8.4-10.2) mg/dL Ionized Calcium Monet (4.5-5.3) mg/dL Magnesium (1.6-2.3) mg/dL Alkaline Phosphatase (38-126) U/L Total Protein (6.3-8.2) g/dL Albumin (3.5-5.0) g/dL Crossmatch See Detail 10/01/21 10/01/21 10/01/21 Range/Units 14:31 14:50 16:18 RBC (4.30-5.90) m/uL Hgb (13.0-17.5) gm/dL Hct (39.0-53.0) % Plt Count (150-450) k/uL Neutrophils # (1.3-7.7) k/uL PT (9.0-12.0) sec INR (<1.2) APTT (22.0-30.0) sec Fibrinogen (200-500) mg/dL Sodium 136 L (137-145) mmol/L Chloride 110 H (98-107) mmol/L Glucose 119 H (74-99) mg/dL POC Glucose (mg/dL) 138 H 181 H (70-110) mg/dL Calcium 6.9 L (8.4-10.2) mg/dL Ionized Calcium Monet 4.4 L (4.5-5.3) mg/dL Magnesium 2.5 H (1.6-2.3) mg/dL Alkaline Phosphatase 26 L (38-126) U/L Total Protein 3.5 L (6.3-8.2) g/dL Albumin 2.0 L (3.5-5.0) g/dL Crossmatch 10/01/21 Range/Units 17:20 RBC (4.30-5.90) m/uL Hgb (13.0-17.5) gm/dL Hct (39.0-53.0) % Plt Count (150-450) k/uL Neutrophils # (1.3-7.7) k/uL PT (9.0-12.0) sec INR (<1.2) APTT (22.0-30.0) sec Fibrinogen (200-500) mg/dL Sodium (137-145) mmol/L Chloride (98-107) mmol/L Glucose (74-99) mg/dL POC Glucose (mg/dL) 166 H (70-110) mg/dL Calcium (8.4-10.2) mg/dL Ionized Calcium Monet (4.5-5.3) mg/dL Magnesium (1.6-2.3) mg/dL Alkaline Phosphatase (38-126) U/L Total Protein (6.3-8.2) g/dL Albumin (3.5-5.0) g/dL Crossmatch
[2021-10-02 00:54] LABS: Glucose,Whole Blood 133 mg/dL (70-110)
[2021-10-02] MEDS ORDERED: HYDROcodone/APAP 5-325MG 1 EACH TAB PO PRN (01:41)
[2021-10-02 01:58] LABS: Glucose,Whole Blood 153 mg/dL (70-110)
[2021-10-02 02:55] LABS: Glucose,Whole Blood 139 mg/dL (70-110)
[2021-10-02] MEDS: HYDROcodone/APAP 5-325MG 1 EACH TAB PO PRN ×3 (03:56→15:46)
[2021-10-02 04:00] LABS: Glucose,Whole Blood 133 mg/dL (70-110)
[2021-10-02] MEDS: ALBUMIN HUMAN 5% 250 ML in EMPTY BAG 1 BAG IVPB PRN ×4 (04:36→05:16)
[2021-10-02 04:42] LABS: Basophils % (A) 0 %; Eosinophils % (A) 0 %; HCT 21.8 % (39.0-53.0); HGB 7.2 gm/dL (13.0-17.5); Lymphocytes # (A) 0.6 k/uL (1.0-4.8); Lymphocytes % (A) 6 %; MCH 30.1 pg (25.0-35.0); MCHC 32.9 g/dL (31.0-37.0); MCV 91.7 fL (80.0-100.0); Mean Platelet Volume 8.1; Monocytes # (A) 0.7 k/uL (0-1.0); Monocytes % (A) 7 %; Neutrophils # (A) 8.9 k/uL (1.3-7.7); Neutrophils % (A) 86 %; Platelet Count 118 k/uL (150-450); RBC 2.38 m/uL (4.30-5.90); RDW 13.7 % (11.5-15.5); WBC 10.3 k/uL (3.8-10.6)
[2021-10-02 04:54] LABS: Ionized Calcium 4.5 mg/dL (4.5-5.3)
[2021-10-02 05:00] LABS: Glucose,Whole Blood 133 mg/dL (70-110)
[2021-10-02 05:12] LABS: ALT 14 U/L (4-49); AST 50 U/L (17-59); African American GFR (CKD) >90 (>60 ml/min/1.73 sqM); Albumin 3.1 g/dL (3.5-5.0); Alkaline Phosphatase 25 U/L (38-126); Anion Gap 5 mmol/L; Blood Urea Nitrogen 18 mg/dL (9-20); Calcium 7.5 mg/dL (8.4-10.2); Carbon Dioxide 23 mmol/L (22-30); Chloride 110 mmol/L (98-107); Glucose 114 mg/dL (74-99); Magnesium 2.3 mg/dL (1.6-2.3); Non-African American GFR(CKD) 85 (>60 ml/min/1.73 sqM); Potassium 4.1 mmol/L (3.5-5.1); Sodium 138 mmol/L (137-145); Total Bilirubin 0.6 mg/dL (0.2-1.3); Total Protein 4.6 g/dL (6.3-8.2)
[2021-10-02 05:28] LABS: Glucose,Whole Blood 138 mg/dL (70-110)
[2021-10-02 05:57] LABS: Glucose,Whole Blood 137 mg/dL (70-110)
[2021-10-02 06:56] LABS: Glucose,Whole Blood 134 mg/dL (70-110)
--- NOTE | 2021-10-02 07:04 | XR ---
EXAMINATION TYPE: XR chest 1V portable DATE OF EXAM: 10/02/2021 CLINICAL HISTORY: Postoperative cardiac surgery. TECHNIQUE: Single AP portable semiupright view of the chest is obtained. COMPARISON: Chest x-ray from one day earlier. FINDINGS: Interval extubation with removal of endotracheal and orogastric tubes. Stable right test engineering intern al jugular [place] catheter. Stable bilateral chest tubes and mediastinal drainage catheter. Overlying epicardial pacer wires are currently present. Overlying sternal wires and mediastinal clips are again seen. Worsening left greater than right bibasilar opacities. Cardiac silhouette size is st able and mildly enlarged. Osseous structures are intact. No pneumothorax is visualized. IMPRESSION: Interval extubation. Worsening left greater than right bibasilar atelectasis and/or devel oping acute infiltrates. No pneumothorax seen bilaterally with chest tubes in place.
[2021-10-02] MEDS ORDERED: ACETAMINOPHEN TAB 325 MG TAB PO PRN (07:20)
[2021-10-02] MEDS: IPRATROPIUM-ALBUTEROL 3 ML NEB INHALATION SCH ×4 (07:29→19:57)
--- NOTE | 2021-10-02 07:46 | P.PN ---
Subjective Progress Note Date: 10/02/21 Principal diagnosis: Coronary artery disease. History of hypertension, hyperlipidemia, never smoker, prostate cancer, asymptomatic Covid diagnosis in July 2021 as well as positive PCR [id number], both vaccinated and boosted POD #1 coronary artery bypass grafting 4 vessels, left internal mammary artery to the diagonal artery, saphenous vein graft to the left anterior descending artery, radial artery to the obtuse marginal artery, saphenous vein graft to posterior descending artery, endoscopic harvest of the left radial artery, endoscopic harvesting of bilateral greater saphenous veins, ligation of the left atrial appendage with a 35 mm AtriClip, epi-aortic ultrasound, intraoperative transesophageal echocardiogram Postoperative acute blood loss anemia and thrombocytopenia, expected given hemodilution and cardiopulmonary bypass pump The patient was seen and examined this morning sitting up in a recliner in the intensive care unit in no acute distress. He was successfully extubated last night at 20:20. Does complain of postsurgical pain with movement, denies short ness of breath. Currently on 2 L nasal cannula with oxygen saturation in the mid 90s, barely able to achieve 500-750 mL on his incentive spirometry, very weak effort at coughing. Currently sinus tach with heart rate in the low 100s, blood pressure stable on low-dose levo. Remains on IV nitro for vessel spasm prophylaxis. He did receive 1 unit packed red blood cells intraoperative and one pack of cryoprecipitate last night. Right internal jugular Manassa/Cordis, right radial arterial line, mediastinal/right/left pleural chest tubes all remaining present. No other new concerns. Objective - Vital Signs Vital signs: Vital Signs Temp 98.8 F 10/02/21 04:00 Pulse 111 H 10/02/21 07:00 Resp 25 H 10/02/21 07:00 BP 112/68 10/02/21 00:00 Pulse Ox 93 L 10/02/21 07:00 FiO2 50 10/01/21 20:00 Intake & Output 10/01/21 10/02/21 10/02/21 18:59 06:59 18:59 Intake Total 1908.16 1286.358 79 Output Total 2690 1230 115 Balance -781.84 56.358 -36 Weight 87.679 kg Intake: IV 169 768 79 Lactated Ringers 1,000 ml 550 50 @ 50 mls/hr IV .Q20H [facility] Rx#:[id number] cardiac index 80 110 20 pressure bags 36 108 9 Intake, IV Titration 1273.16 378.358 Amount ACETAMINOPHEN IV (For NPO 100 ) 1,000 mg In Empty Bag 1 bag @ 400 mls/hr IVPB Q6HR [facility] Rx#:[id number] Albumin Human 5% 250 ml 750 250 In Empty Bag 1 bag @ 250 mls/hr IVPB Q1HR PRN Rx#: [id number] Calcium Gluconate in NaCl 100 1 gm In Saline 1 100ml. bag @ 100 mls/hr IVPB ONCE ONE Rx#:[id number] Insulin Regular 100 unit 5.05 19.258 In Sodium Chloride 0.9% 100 ml @ Per Protocol IV .Q0M [facility] Rx#:[id number] Lactated Ringers 1,000 ml 200 50 @ 50 mls/hr IV .Q20H [facility] Rx#:[id number] Norepinephrine 4 mg In 29.16 59.100 Sodium Chloride 0.9% 250 ml @ 0.02 MCG/KG/MIN 6. 248 mls/hr IV .Q24H [facility] Rx#:[id number] ceFAZolin 2 gm In Sodium 50 Chloride 0.9% 50 ml @ 100 mls/hr IVPB Q8HR [facility] Rx# :[id number] propofoL 1,000 mg In 38.95 Empty Bag 1 bag @ Titrate IV .Q0M [facility] Rx#: [id number] Oral 130 Tube Feeding 10 Blood Product 466 Pooled Cryoprecipitate 78 Unit [id number] Rc As-1 Unit 310 [id number] Output: Chest Tube Drainage 515 680 50 left and right pleural 230 580 30 mediastinal 285 100 20 Urine 1175 550 65 Estimated Blood Loss 1000 Other: Voiding Method Indwelling Catheter Indwelling Catheter ABP, PAP, CO, CI - Last Documented Arterial Blood Pressure 111/43 Pulmonary Artery Pressure 37/16 Cardiac Output 6.2 Cardiac Index 3.1 - Exam CONSTITUTIONAL: Appears comfortable as long as he's not moving, cooperative, no acute distress RESPIRATORY: Lungs sounds diminished bilaterally. Respirations even, nonlabored. Currently on 2 L nasal cannula with oxygen saturation 95%. Able to achieve 500-750 mL on incentive spirometry. Weak cough. CARDIOVASCULAR: S1, S2 present. Tachycardic but regular rate and rhythm, sinus tach on telemetry. Sternum stable. Palpable peripheral pulses bilaterally. No edema present. No calf pain or tenderness noted. Heart hugger, antiembolism stockings, SCDs present. GASTROINTESTINAL: Abdomen soft, nontender, nondistended. Hypoactive bowel sounds present 4 quadrants. Tolerating clear liquid. Denies flatus GENITOURINARY: Dueñas present draining clear, yellow urine. Output overnight 30-50 mL per hour INTEGUMENTARY: Skin is warm and dry with evidence of good perfusion. Anterior chest incision well approximated and covered with dry intact dressing. Bilateral lower extremity EVH sites as well as left radial artery harvest site well approximated without redness or drainage. NEUROLOGIC: Cranial nerves II through XII intact MUSKULOSKELETAL: Able to move all extremities, strength equal bilaterally PSYCHIATRIC: Alert and oriented to person place and time, appropriate affect, intact judgment and insight INVASIVE LINES AND TUBES: Mediastinal/left/right pleural chest tubes present and connected to wall suction, no air leaks present. Mediastinal tube with 60 mL serosanguineous drainage overnight, 400 mL since surgery. Left/right pleural chest tubes with 380 mL serosanguineous drainage overnight, 850 mL since surgery. A/V epicardial pacemaker wires present, connected to generator, backup rate 50 bpm. Right internal jugular Man[place]/Cordis, right radial arterial line present. Last CO/CI 6.2/3.1, PA 38/15, CVP 13. - Allied health notes Allied health notes reviewed: nursing - Labs CBC & Chem 7: 10/02/21 04:00 10/02/21 04:00 Labs: Abnormal Lab Results - Last 24 Hours (Table) 09/25/21 10/01/21 10/01/21 Range/Units 13:31 14:30 14:30 WBC (3.8-10.6) k/uL RBC 2.73 L (4.30-5.90) m/uL Hgb 8.6 L (13.0-17.5) gm/dL Hct 25.5 L (39.0-53.0) % Plt Count 109 L (150-450) k/uL Neutrophils # 8.4 H (1.3-7.7) k/uL Lymphocytes # (1.0-4.8) k/uL PT 13.5 H (9.0-12.0) sec INR 1.3 H (<1.2) APTT 34.3 H (22.0-30.0) sec Fibrinogen 120 L (200-500) mg/dL Sodium (137-145) mmol/L Chloride (98-107) mmol/L Glucose (74-99) mg/dL POC Glucose (mg/dL) (70-110) mg/dL Calcium (8.4-10.2) mg/dL Ionized Calcium Monet (4.5-5.3) mg/dL Magnesium (1.6-2.3) mg/dL Alkaline Phosphatase (38-126) U/L Total Protein (6.3-8.2) g/dL Albumin (3.5-5.0) g/dL Crossmatch See Detail 10/01/21 10/01/21 10/01/21 Range/Units 14:31 14:50 16:18 WBC (3.8-10.6) k/uL RBC (4.30-5.90) m/uL Hgb (13.0-17.5) gm/dL Hct (39.0-53.0) % Plt Count (150-450) k/uL Neutrophils # (1.3-7.7) k/uL Lymphocytes # (1.0-4.8) k/uL PT (9.0-12.0) sec INR (<1.2) APTT (22.0-30.0) sec Fibrinogen (200-500) mg/dL Sodium 136 L (137-145) mmol/L Chloride 110 H (98-107) mmol/L Glucose 119 H (74-99) mg/dL POC Glucose (mg/dL) 138 H 181 H (70-110) mg/dL Calcium 6.9 L (8.4-10.2) mg/dL Ionized Calcium Monet 4.4 L (4.5-5.3) mg/dL Magnesium 2.5 H (1.6-2.3) mg/dL Alkaline Phosphatase 26 L (38-126) U/L Total Protein 3.5 L (6.3-8.2) g/dL Albumin 2.0 L (3.5-5.0) g/dL Crossmatch 10/01/21 10/01/21 10/01/21 Range/Units 17:20 18:01 18:03 WBC 10.7 H (3.8-10.6) k/uL RBC 2.49 L (4.30-5.90) m/uL Hgb 7.4 L (13.0-17.5) gm/dL Hct 22.7 L (39.0-53.0) % Plt Count 116 L (150-450) k/uL Neutrophils # 9.4 H (1.3-7.7) k/uL Lymphocytes # 0.7 L (1.0-4.8) k/uL PT (9.0-12.0) sec INR (<1.2) APTT (22.0-30.0) sec Fibrinogen (200-500) mg/dL Sodium (137-145) mmol/L Chloride (98-107) mmol/L Glucose (74-99) mg/dL POC Glucose (mg/dL) 166 H 156 H (70-110) mg/dL Calcium (8.4-10.2) mg/dL Ionized Calcium Monet (4.5-5.3) mg/dL Magnesium (1.6-2.3) mg/dL Alkaline Phosphatase (38-126) U/L Total Protein (6.3-8.2) g/dL Albumin (3.5-5.0) g/dL Crossmatch 10/01/21 10/01/21 10/01/21 Range/Units 19:06 19:45 19:47 WBC (3.8-10.6) k/uL RBC 2.34 L (4.30-5.90) m/uL Hgb 7.2 L (13.0-17.5) gm/dL Hct 21.9 L (39.0-53.0) % Plt Count 119 L (150-450) k/uL Neutrophils # 9.3 H (1.3-7.7) k/uL Lymphocytes # 0.5 L (1.0-4.8) k/uL PT (9.0-12.0) sec INR (<1.2) APTT (22.0-30.0) sec Fibrinogen (200-500) mg/dL Sodium (137-145) mmol/L Chloride (98-107) mmol/L Glucose (74-99) mg/dL POC Glucose (mg/dL) 156 H 147 H (70-110) mg/dL Calcium (8.4-10.2) mg/dL Ionized Calcium Monet (4.5-5.3) mg/dL Magnesium (1.6-2.3) mg/dL Alkaline Phosphatase (38-126) U/L Total Protein (6.3-8.2) g/dL Albumin (3.5-5.0) g/dL Crossmatch 10/01/21 10/01/21 10/01/21 Range/Units 21:02 21:44 22:49 WBC (3.8-10.6) k/uL RBC (4.30-5.90) m/uL Hgb (13.0-17.5) gm/dL Hct (39.0-53.0) % Plt Count (150-450) k/uL Neutrophils # (1.3-7.7) k/uL Lymphocytes # (1.0-4.8) k/uL PT (9.0-12.0) sec INR (<1.2) APTT (22.0-30.0) sec Fibrinogen (200-500) mg/dL Sodium (137-145) mmol/L Chloride (98-107) mmol/L Glucose (74-99) mg/dL POC Glucose (mg/dL) 140 H 138 H 134 H (70-110) mg/dL Calcium (8.4-10.2) mg/dL Ionized Calcium Monet (4.5-5.3) mg/dL Magnesium (1.6-2.3) mg/dL Alkaline Phosphatase (38-126) U/L Total Protein (6.3-8.2) g/dL Albumin (3.5-5.0) g/dL Crossmatch 10/01/21 10/02/21 10/02/21 Range/Units 23:57 00:52 01:56 WBC (3.8-10.6) k/uL RBC (4.30-5.90) m/uL Hgb (13.0-17.5) gm/dL Hct (39.0-53.0) % Plt Count (150-450) k/uL Neutrophils # (1.3-7.7) k/uL Lymphocytes # (1.0-4.8) k/uL PT (9.0-12.0) sec INR (<1.2) APTT (22.0-30.0) sec Fibrinogen (200-500) mg/dL Sodium (137-145) mmol/L Chloride (98-107) mmol/L Glucose (74-99) mg/dL POC Glucose (mg/dL) 138 H 133 H 153 H (70-110) mg/dL Calcium (8.4-10.2) mg/dL Ionized Calcium Monet (4.5-5.3) mg/dL Magnesium (1.6-2.3) mg/dL Alkaline Phosphatase (38-126) U/L Total Protein (6.3-8.2) g/dL Albumin (3.5-5.0) g/dL Crossmatch 10/02/21 10/02/21 10/02/21 Range/Units 02:52 03:58 04:00 WBC (3.8-10.6) k/uL RBC 2.38 L (4.30-5.90) m/uL Hgb 7.2 L (13.0-17.5) gm/dL Hct 21.8 L (39.0-53.0) % Plt Count 118 L (150-450) k/uL Neutrophils # 8.9 H (1.3-7.7) k/uL Lymphocytes # 0.6 L (1.0-4.8) k/uL PT (9.0-12.0) sec INR (<1.2) APTT (22.0-30.0) sec Fibrinogen (200-500) mg/dL Sodium (137-145) mmol/L Chloride (98-107) mmol/L Glucose (74-99) mg/dL POC Glucose (mg/dL) 139 H 133 H (70-110) mg/dL Calcium (8.4-10.2) mg/dL Ionized Calcium Monet (4.5-5.3) mg/dL Magnesium (1.6-2.3) mg/dL Alkaline Phosphatase (38-126) U/L Total Protein (6.3-8.2) g/dL Albumin (3.5-5.0) g/dL Crossmatch 10/02/21 10/02/21 10/02/21 Range/Units 04:00 04:58 05:26 WBC (3.8-10.6) k/uL RBC (4.30-5.90) m/uL Hgb (13.0-17.5) gm/dL Hct (39.0-53.0) % Plt Count (150-450) k/uL Neutrophils # (1.3-7.7) k/uL Lymphocytes # (1.0-4.8) k/uL PT (9.0-12.0) sec INR (<1.2) APTT (22.0-30.0) sec Fibrinogen (200-500) mg/dL Sodium (137-145) mmol/L Chloride 110 H (98-107) mmol/L Glucose 114 H (74-99) mg/dL POC Glucose (mg/dL) 133 H 138 H (70-110) mg/dL Calcium 7.5 L (8.4-10.2) mg/dL Ionized Calcium Monet (4.5-5.3) mg/dL Magnesium (1.6-2.3) mg/dL Alkaline Phosphatase 25 L (38-126) U/L Total Protein 4.6 L (6.3-8.2) g/dL Albumin 3.1 L (3.5-5.0) g/dL Crossmatch 10/02/21 10/02/21 Range/Units 05:56 06:54 WBC (3.8-10.6) k/uL RBC (4.30-5.90) m/uL Hgb (13.0-17.5) gm/dL Hct (39.0-53.0) % Plt Count (150-450) k/uL Neutrophils # (1.3-7.7) k/uL Lymphocytes # (1.0-4.8) k/uL PT (9.0-12.0) sec INR (<1.2) APTT (22.0-30.0) sec Fibrinogen (200-500) mg/dL Sodium (137-145) mmol/L Chloride (98-107) mmol/L Glucose (74-99) mg/dL POC Glucose (mg/dL) 137 H 134 H (70-110) mg/dL Calcium (8.4-10.2) mg/dL Ionized Calcium Monet (4.5-5.3) mg/dL Magnesium (1.6-2.3) mg/dL Alkaline Phosphatase (38-126) U/L Total Protein (6.3-8.2) g/dL Albumin (3.5-5.0) g/dL Crossmatch - Imaging and Cardiology Chest x-ray: report reviewed, image reviewed Assessment and Plan Assessment: 1. Coronary artery disease, status post four-vessel CABG 2. History of hypertension, currently hypotensive on IV levo 3. Hyperlipidemia, treated 4. Never smoker, preoperative FEV1 90% of predicted 5. Prostate cancer, needs prostatectomy 6. Asymptomatic Covid diagnosis in July 2021 as well as positive PCR [id number], both vaccinated and boosted 7. Postoperative acute blood loss anemia and thrombocytopenia, expected Plan: 1. Continue aspirin, statin, Plavix, beta adriane therapy. We will increase beta adriane therapy as tolerated. Wean levo as tolerated. Discontinue IV nitro, will add low dose CCB when able for radial artery spasm prophylaxis 2. Wean O2 as tolerated. Encourage incentive spirometry is 10 times every hour while awake. Bronchodilators per pulmonology. Patient needs strong encouragement for pulmonary toileting 3. Increase activity as tolerated. PT/OT/cardiac rehab consulted 4. Will monitor daily labs and chest x-rays. Electrolyte replacement per protocol. Will give 1 unit PRBCs 5. Insulin management per primary care service. Patient is not a diabetic, preoperative hemoglobin A1c 5.9% 6. Pain control with current medication regimen 7. Will discontinue [place]. Connect Cordis to continuous CVP monitoring 8. Continue chest tubes for another 24 hours, monitor output 9. Continue Dueñas catheter for another 24 hours for strict accurate intake and output. Daily weights 10. GI/DVT prophylaxis 11. More recommendations to follow based on patient's progress
[2021-10-02] MEDS: HEPARIN SODIUM,PORCINE/PF 5,000 UNIT/0.5 ML SYRINGE SQ SCH ×2 (08:25→15:45)
[2021-10-02] MEDS: ASPIRIN 325 MG TAB PO SCH (08:28)
[2021-10-02] MEDS: CLOPIDOGREL 75 MG TAB PO SCH (08:28)
[2021-10-02] MEDS: ATORVASTATIN 40 MG TAB PO SCH (08:29)
[2021-10-02 08:43] LABS: Glucose,Whole Blood 132 mg/dL (70-110)
[2021-10-02] MEDS ORDERED: METOPROLOL TARTRATE 12.5 MG TAB PO SCH (09:00)
[2021-10-02] MEDS ORDERED: bisacodyL 10 MG SUPP RECTAL PRN (09:00)
[2021-10-02] MEDS ORDERED: PANTOPRAZOLE 40 MG/10 ML VIAL IVP SCH (09:00)
[2021-10-02] MEDS ORDERED: MAGNESIUM HYDROXIDE 2,400 MG/10 ML CUP PO PRN (09:00)
[2021-10-02 10:35] VITALS: BMI 27.7
--- NOTE | 2021-10-02 10:36 | P.CNPUL ---
History of Present Illness Consult date: 10/02/21 Requesting physician: Alex Driscoll Reason for consult: other (Critical care management) Chief complaint: Coronary artery disease History of present illness: This a very pleasant 71-year-old male patient with a known history of prostate cancer, hypertension, hyperlipidemia, previous COVID-19 diagnosis in July 2021 and a positive PCR 09/25/2021. The patient has been vaccinated and boosted. He was found to have significant coronary artery disease and presented here yesterday for an elective coronary artery bypass grafting. He did receive a MARSH to the diagonal, saphenous vein grafts to the LAD, posterior descending artery and radial artery to the obtuse marginal artery. He was successfully extubated at 20:20 last night. He has lactated Ringer's at 50 MLS per hour. Norepinephrine at 0.04 mcg/kg/m. Iinsulin at 2 units per hour. Chest x-ray does reveal worsening left greater than right basilar atelectasis. No evidence of pneumothorax. Bilateral and mediastinal chest tubes in place. Appendectomy is status post 2 units of packed red blood cells infusion. Current hemoglobin 7.7. Platelet count 118. White count 10.3. Sodium 138. Potassium 4.1. BUN 18. Creatinine 0.91. Glucose 132. AST 50. ALT 14. Albumin 3.1. He did receive albumin replacement. He is afebrile. Mean arterial pressure 65. PA pressure 20/8. CVP 5. Cardiac output 6.2. Cardiac index 3.1. He remains on bronchodilators. Working with the incentive spirometer. Heparin for DVT prophylaxis. Currently in a -725 ML balance. Review of Systems REVIEW OF SYSTEMS: CONSTITUTIONAL: Denies any recent significant weight loss or weight gain. EYES: Denies change in vision. EARS, NOSE, MOUTH, THROAT: Denies headaches, denies sore throat. CARDIOVASCULAR: Surgical site chest pain, no palpitations or syncopal episodes. RESPIRATORY: Denies shortness of breath, cough, congestion or hemoptysis. GASTROINTESTINAL: Denies change in appetite, denies abdominal pain GENITOURINARY: Denies hematuria, denies infections. MUSKULOSKELETAL: Denies pain, denies swelling. INTEGUMENTARY: Denies rash, denies eczema. NEUROLOGICAL: Denies recent memory loss, no recent seizure activity. PSYCHIATRIC: Denies anxiety, denies depression. HEMATOLOGIC/LYMPHATIC: Denies anemia, denies enlarged lymph nodes. Past Medical History Past Medical History: Coronary Artery Disease (CAD), Cancer, Hyperlipidemia, Hypertension Additional Past Medical History / Comment(s): prostate cancer; positive Covid PCR in July 2019, and 09/25/2021 History of Any Multi-Drug Resistant Organisms: None Reported Past Surgical History: No Surgical Hx Reported, Heart Catheterization Additional Past Surgical History / Comment(s): colonoscopy; heart catheterization 09/25/2021 Past Anesthesia/Blood Transfusion Reactions: No Reported Reaction Smoking Status: Never smoker - Past Family History Mother Family Medical History: No Reported History Father Family Medical History: No Reported History Medications and Allergies Home Medications Medication Instructions Recorded Confirmed Type Aspirin 81 mg PO DAILY 09/24/21 10/01/21 History Atorvastatin [Lipitor] 20 mg PO DAILY 09/24/21 10/01/21 History Lisinopril-Hctz 10-12.5 mg 1 tab PO DAILY 09/24/21 10/01/21 History [Zestoretic 10-12.5] Metoprolol Tartrate [Lopressor] 25 mg PO BID #180 tablet 09/25/21 10/01/21 Rx Allergies Allergy/AdvReac Type Severity Reaction Status Date / Time No Known Allergies Allergy Verified 10/01/21 06:30 Physical Exam Vitals: Vital Signs Temp Pulse Pulse Resp BP Pulse Ox FiO2 10/02/21 09:52 99.0 F 96 20 103/47 96 10/02/21 09:00 97 19 95 10/02/21 08:30 96 31 H 96 10/02/21 08:00 99.0 F 100 64 19 94 L 10/02/21 07:30 102 H 22 94 L 10/02/21 07:00 111 H 25 H 93 L 10/02/21 06:30 93 15 97 10/02/21 06:00 98 13 97 10/02/21 05:30 93 16 97 10/02/21 05:00 92 23 95 10/02/21 04:30 93 14 90 L 10/02/21 04:00 98.8 F 101 H 26 H 95 10/02/21 03:30 93 19 93 L 10/02/21 03:00 92 18 93 L 10/02/21 02:30 101 H 14 93 L 10/02/21 02:00 90 21 97 10/02/21 01:30 95 25 H 97 10/02/21 01:00 98 15 97 10/02/21 00:30 94 21 97 10/02/21 00:00 99.0 F 102 H 19 112/68 98 10/01/21 23:30 92 18 98 10/01/21 23:00 95 19 98 10/01/21 22:30 92 23 99 10/01/21 22:00 92 18 99 10/01/21 21:30 93 20 100 10/01/21 21:00 93 23 99 10/01/21 20:30 96 28 H 93/54 100 10/01/21 20:00 99.1 F 97 22 100 50 10/01/21 19:35 50 10/01/21 19:34 93 10/01/21 19:30 90 20 100 50 10/01/21 19:26 91 10/01/21 19:24 50 10/01/21 19:00 87 3 L 100 10/01/21 18:30 88 0 L 100 10/01/21 18:00 93 16 100 10/01/21 17:54 99.1 F 96 18 97/49 100 10/01/21 17:42 99.1 F 96 18 95/48 99 10/01/21 17:30 96 16 100 10/01/21 17:12 98.6 F 97 22 90/47 100 10/01/21 17:02 98.6 F 92 18 89/45 100 10/01/21 17:00 92 10 L 100 10/01/21 16:30 85 15 100 10/01/21 16:21 82 10/01/21 16:11 82 10/01/21 16:00 97.3 F L 80 19 100 50 10/01/21 15:30 80 26 H 100 10/01/21 15:05 50 10/01/21 15:04 50 10/01/21 15:00 96.1 F L 80 15 84/51 100 10/01/21 14:30 80 14 100 10/01/21 14:26 100 10/01/21 14:24 80 9 L 10/01/21 14:22 100 10/01/21 13:21 98.6 F 90 18 90/45 100 Intake and Output 10/01/21 10/02/21 10/02/21 22:59 06:59 14:59 Intake Total 2123.913 707.605 128.88 Output Total 1360 760 115 Balance 763.913 -52.395 13.88 Intake: IV 332 552 79 Lactated Ringers 1,000 ml 150 400 50 @ 50 mls/hr IV .Q20H [facility] Rx#:[id number] cardiac index 110 80 20 pressure bags 72 72 9 Intake, IV Titration 1625.913 25.605 49.88 Amount ACETAMINOPHEN IV (For NPO 100 ) 1,000 mg In Empty Bag 1 bag @ 400 mls/hr IVPB Q6HR [facility] Rx#:[id number] Albumin Human 5% 250 ml 1000 In Empty Bag 1 bag @ 250 mls/hr IVPB Q1HR PRN Rx#: [id number] Calcium Gluconate in NaCl 100 1 gm In Saline 1 100ml. bag @ 100 mls/hr IVPB ONCE ONE Rx#:[id number] Insulin Regular 100 unit 13.282 11.026 In Sodium Chloride 0.9% 100 ml @ Per Protocol IV .Q0M [facility] Rx#:[id number] Lactated Ringers 1,000 ml 250 @ 50 mls/hr IV .Q20H [facility] Rx#:[id number] Norepinephrine 4 mg In 73.681 14.579 49.88 Sodium Chloride 0.9% 250 ml @ 0.02 MCG/KG/MIN 6. 248 mls/hr IV .Q24H [facility] Rx#:[id number] ceFAZolin 2 gm In Sodium 50 Chloride 0.9% 50 ml @ 100 mls/hr IVPB Q8HR [facility] Rx# :[id number] propofoL 1,000 mg In 38.95 Empty Bag 1 bag @ Titrate IV .Q0M [facility] Rx#: [id number] Oral 130 Tube Feeding 10 Blood Product 156 0 Pooled Cryoprecipitate 78 Unit [id number] Rc As-1 Unit 0 [id number] Output: Chest Tube Drainage 755 440 50 left and right pleural 430 380 30 mediastinal 325 60 20 Urine 605 320 65 Other: Voiding Method Indwelling Catheter Indwelling Catheter Indwelling Catheter Weight 87.679 kg ABP, PAP, CO, CI - Last 8 Hours Arterial Blood Pressure 103/40 Arterial Blood Pressure 100/45 Arterial Blood Pressure 109/48 Arterial Blood Pressure 105/42 Arterial Blood Pressure 111/43 Arterial Blood Pressure 113/44 Arterial Blood Pressure 103/41 Arterial Blood Pressure 108/47 Arterial Blood Pressure 103/43 Arterial Blood Pressure 112/50 Arterial Blood Pressure 121/56 Arterial Blood Pressure 113/53 Arterial Blood Pressure 118/56 Arterial Blood Pressure 102/54 Pulmonary Artery Pressure 28/8 Pulmonary Artery Pressure 29/13 Pulmonary Artery Pressure 35/14 Pulmonary Artery Pressure 34/14 Pulmonary Artery Pressure 37/16 Pulmonary Artery Pressure 34/13 Pulmonary Artery Pressure 34/14 Pulmonary Artery Pressure 28/12 Pulmonary Artery Pressure 25/9 Pulmonary Artery Pressure 25/9 Pulmonary Artery Pressure 40/21 Pulmonary Artery Pressure 33/18 Pulmonary Artery Pressure 36/19 Pulmonary Artery Pressure 35/19 Cardiac Output 6.2 Cardiac Output 6.2 Cardiac Output 6.2 Cardiac Output 6.2 Cardiac Output 6.2 Cardiac Output 7 Cardiac Index 3.1 Cardiac Index 3.1 Cardiac Index 3.1 Cardiac Index 3.1 Cardiac Index 3.1 Cardiac Index 3.5 GENERAL EXAM: Alert, 71-year-old male patient, up in a chair, on 2 L nasal cannula, fairly comfortable in no apparent distress. HEAD: Normocephalic. EYES: Normal reaction of pupils, equal size. NOSE: Clear with pink turbinates. THROAT: No erythema or exudates. NECK: Right IJ [place] catheter in place. No masses, no JVD. CHEST: Sternum stable, heart however in place. Right, left and mediastinal chest tubes in place to wall suction. No leaks noted. LUNGS: Equal air entry with crackles in the bilateral bases. CVS: S1 and S2 normal with no audible murmur, regular rhythm. AV epicardial pacemaker wires in place. Attached to generator, backup pacing at 50. ABDOMEN: No hepatosplenomegaly, normal bowel sounds, no guarding or rigidity. SPINE: No scoliosis or deformity SKIN: No rashes CENTRAL NERVOUS SYSTEM: No focal deficits, tone is normal in all 4 extremities. EXTREMITIES: Right radial arterial line in place. There is 1-2+ peripheral edema. No clubbing, no cyanosis. Peripheral pulses are intact. Results - Laboratory Findings CBC and BMP: 10/02/21 04:00 10/02/21 04:00 PT/INR, D-dimer PT 13.5 sec (9.0-12.0) H 10/01/21 14:30 INR 1.3 (<1.2) H 10/01/21 14:30 Abnormal lab findings: Abnormal Labs 09/25/21 10/01/21 10/01/21 13:31 06:20 14:30 WBC RBC 2.73 L Hgb 8.6 L Hct 25.5 L Plt Count 109 L Neutrophils # 8.4 H Lymphocytes # PT INR APTT Fibrinogen Sodium Chloride Glucose POC Glucose (mg/dL) Calcium Ionized Calcium [place] Magnesium Alkaline Phosphatase Total Protein Albumin Crossmatch See Detail See Detail 10/01/21 10/01/21 10/01/21 14:30 14:31 14:50 WBC RBC Hgb Hct Plt Count Neutrophils # Lymphocytes # PT 13.5 H INR 1.3 H APTT 34.3 H Fibrinogen 120 L Sodium 136 L Chloride 110 H Glucose 119 H POC Glucose (mg/dL) 138 H Calcium 6.9 L Ionized Calcium Monet 4.4 L Magnesium 2.5 H Alkaline Phosphatase 26 L Total Protein 3.5 L Albumin 2.0 L Crossmatch 10/01/21 10/01/21 10/01/21 16:18 17:20 18:01 WBC RBC Hgb Hct Plt Count Neutrophils # Lymphocytes # PT INR APTT Fibrinogen Sodium Chloride Glucose POC Glucose (mg/dL) 181 H 166 H 156 H Calcium Ionized Calcium [place] Magnesium Alkaline Phosphatase Total Protein Albumin Crossmatch 10/01/21 10/01/21 10/01/21 18:03 19:06 19:45 WBC 10.7 H RBC 2.49 L 2.34 L Hgb 7.4 L 7.2 L Hct 22.7 L 21.9 L Plt Count 116 L 119 L Neutrophils # 9.4 H 9.3 H Lymphocytes # 0.7 L 0.5 L PT INR APTT Fibrinogen Sodium Chloride Glucose POC Glucose (mg/dL) 156 H Calcium Ionized Calcium [place] Magnesium Alkaline Phosphatase Total Protein Albumin Crossmatch 10/01/21 10/01/21 10/01/21 19:47 21:02 21:44 WBC RBC Hgb Hct Plt Count Neutrophils # Lymphocytes # PT INR APTT Fibrinogen Sodium Chloride Glucose POC Glucose (mg/dL) 147 H 140 H 138 H Calcium Ionized Calcium [place] Magnesium Alkaline Phosphatase Total Protein Albumin Crossmatch 10/01/21 10/01/21 10/02/21 22:49 23:57 00:52 WBC RBC Hgb Hct Plt Count Neutrophils # Lymphocytes # PT INR APTT Fibrinogen Sodium Chloride Glucose POC Glucose (mg/dL) 134 H 138 H 133 H Calcium Ionized Calcium [place] Magnesium Alkaline Phosphatase Total Protein Albumin Crossmatch 10/02/21 10/02/21 10/02/21 01:56 02:52 03:58 WBC RBC Hgb Hct Plt Count Neutrophils # Lymphocytes # PT INR APTT Fibrinogen Sodium Chloride Glucose POC Glucose (mg/dL) 153 H 139 H 133 H Calcium Ionized Calcium [place] Magnesium Alkaline Phosphatase Total Protein Albumin Crossmatch 10/02/21 10/02/21 10/02/21 04:00 04:00 04:58 WBC RBC 2.38 L Hgb 7.2 L Hct 21.8 L Plt Count 118 L Neutrophils # 8.9 H Lymphocytes # 0.6 L PT INR APTT Fibrinogen Sodium Chloride 110 H Glucose 114 H POC Glucose (mg/dL) 133 H Calcium 7.5 L Ionized Calcium [place] Magnesium Alkaline Phosphatase 25 L Total Protein 4.6 L Albumin 3.1 L Crossmatch 10/02/21 10/02/21 10/02/21 05:26 05:56 06:54 WBC RBC Hgb Hct Plt Count Neutrophils # Lymphocytes # PT INR APTT Fibrinogen Sodium Chloride Glucose POC Glucose (mg/dL) 138 H 137 H 134 H Calcium Ionized Calcium [place] Magnesium Alkaline Phosphatase Total Protein Albumin Crossmatch 10/02/21 08:42 WBC RBC Hgb Hct Plt Count Neutrophils # Lymphocytes # PT INR APTT Fibrinogen Sodium Chloride Glucose POC Glucose (mg/dL) 132 H Calcium Ionized Calcium [place] Magnesium Alkaline Phosphatase Total Protein Albumin Crossmatch - Diagnostic Findings Chest x-ray: image reviewed Assessment and Plan Assessment: 1 Coronary artery disease status post coronary artery bypass grafting 4 with a MARSH to the diagonal artery, SVG to the LAD, radial artery to the obtuse marginal artery, saphenous vein graft to the posterior descending artery. Postoperative day #1. 2 Hypotension currently on norepinephrine 3 Postoperative anemia, expected, received 2 units of packed red blood cells 4 Hyperlipidemia 5 Hypertension, history of 6 History of prostate cancer 7 Previous CoVID diagnosis in July 2021, positive PCR on 09/25/2021. He is vaccinated and boosted Plan: The patient was seen and evaluated Chest x-ray, labs and medications reviewed Encourage increased use the incentive spirometer and cough and deep breathing exercises Continue bronchodilators Titrate down the FiO2 as tolerated Increase his activity as tolerated Titrate off the norepinephrine Titrate off the insulin drip Heparin for DVT prophylaxis We will continue to follow I have personally seen and examined the patient, performed the documentation and the assessment and plan as written. Number of minutes spent on the visit: 20.
[2021-10-02 11:45] LABS: Glucose,Whole Blood 112 mg/dL (70-110)
--- NOTE | 2021-10-02 12:34 | P.PN ---
Subjective Progress Note Date: 10/02/21 HISTORY OF PRESENT ILLNESS 71-year-old male with past medical history of hypertension, hyperlipidemia and BPH who was diagnosed with prostate cancer was in the process of clearance for prostate surgery, patient was referred for stress test which was positive ended up having a heart catheter on September 25 finding was consistent with occluded mid LAD with severe stenosis of the proximal significant stenosis of the first branch severe stenosis of the RCA and the left circumflex with normal left ventricular size and systolic function. Patient was referred to cardiothoracic surgery was seen and evaluated and schedule an elective surgery for triple to quadruple bypass surgery which was done today successfully patient was placed on mechanical ventilation, had 3 chest tube, was mildly hyperglycemic place on insulin drip, blood pressure and pulse rate reasonably controlled patient does not seem in any pain currently sedated on mechanical ventilation. 10/02: Patient is seen today in the intensive care unit, successfully extubated last evening, resting in recliner. Right-sided Cordis, chest tube Dueñas catheter remain in place. Patient states his pain is not too bad as long as he does not move. He is scheduled for 1 unit packed RBC transfusion today. He is on insulin drip at 2 units per hour and will be transitioned to scale insulin. Patient is also on norepinephrine. His been afebrile, heart rate 111, blood pressure 111/43, pulse ox 93% on 2 L nasal cannula. Capillary blood glucose running between 112 and 138. WBC 10.3, hemoglobin 7.2, platelet count 118. Cre atinine 0.9. REVIEW OF SYSTEMS Constitutional: No fever, no chills, no night sweats. patient is sedated on mechanical ventilation currently. EENT: No headache. No blurred vision or double vision, no loss of vision. No loss of Hearing, no ringing in the ears, no dizziness. No nasal drainage or congestion. No epistaxis. No sore throat. Lungs: still on mechanical ventilation, no hypoxia. Patient has 3 chest tube as well. Cardiovascular: post bypass surgery, been watch and cafeteria monitor with no major arrhythmia. Abdominal: No abdominal pain. No nausea, vomiting. No diarrhea. No constipation. No bloody or tarry stools.. No loss of appetite. Genitourinary: No dysuria, increased frequency, urgency. No urinary retention. Musculoskeletal: No myalgias. No muscle weakness, no gait dysfunction, no frequent falls. No back pain. No neck pain. Integumentary: No wounds, no lesions. No rash or pruritus. No unusual bruising. No change in hair or nails. Neurologic: he is sedated on mechanical ventilation. Psychiatric: patient is sedated not respond currently. Endocrine: hyperglycemia on insulin pump. PHYSICAL EXAMINATION Gen: This is well-developed 71-year-old male, resting in the recliner in the ICU, appears to be fairly comfortable. No respiratory distress noted. HEENT: Head is atraumatic, normocephalic. Pupils equal, round. Sclerae is anicteric. [address] NECK: Supple. No JVD. No lymphadenopathy. No thyromegaly. LUNGS: decreased breath sound bilaterally especially in the left side with no crackles or wheezes, basis 3 chest tube currently connected to under seawater. HEART: Regular rate and rhythm. No murmur. ABDOMEN: Soft. Bowel sounds are present. No masses. No tenderness. EXTREMITIES: No pedal edema. No calf tenderness. NEUROLOGICAL: he is awake alert and oriented 3, no neuro deficits. ASSESSMENT AND PLAN - post quadruple bypass surgery: Continue mechanical ventilation, still have chest tube, still on multi IV drugs at this point but hemodynamically stable. - Multiple vessel CAD finding via abnormal stress test and heart catheter patient has no left ventricle damage or lack of function. We'll continue medical management. - Post surgery acute respiratory failure, successfully extubated, expected with surgery. - Hypertension: Was on lisinopril HCTZ and metoprolol titrate resume both medication. - Hyperlipidemia: Continue atorvastatin 40 mg daily. - Hyperglycemia: Continue insulin drip keep his blood sugar less than 120. - Mild anemia: Mostly iron deficient and within expected post surgery no need for blood transfusion currently. - GI prophylaxis: Start patient on Protonix 40 mg daily. - DVT prophylaxis: Remain on heparin subcutaneous. CODE STATUS: Full code. Impression and plan of care have been directed as dictated by the signing physician. Jaycee Rm nurse practitioner acting as scribe for signing physician. Objective - Vital Signs Vital signs: Vital Signs Temp 98.8 F 10/02/21 04:00 Pulse 111 H 10/02/21 07:00 Resp 25 H 10/02/21 07:00 BP 112/68 10/02/21 00:00 Pulse Ox 93 L 10/02/21 07:00 FiO2 50 10/01/21 20:00 Intake & Output 10/01/21 10/02/21 10/02/21 18:59 06:59 18:59 Intake Total 1908.16 1286.358 128.88 Output Total 2690 1230 115 Balance -781.84 56.358 13.88 Weight 87.679 kg Intake: IV 169 768 79 Lactated Ringers 1,000 ml 550 50 @ 50 mls/hr IV .Q20H [facility] Rx#:[id number] cardiac index 80 110 20 pressure bags 36 108 9 Intake, IV Titration 1273.16 378.358 49.88 Amount ACETAMINOPHEN IV (For NPO 100 ) 1,000 mg In Empty Bag 1 bag @ 400 mls/hr IVPB Q6HR [facility] Rx#:[id number] Albumin Human 5% 250 ml 750 250 In Empty Bag 1 bag @ 250 mls/hr IVPB Q1HR [facility] Rx#: [id number] Calcium Gluconate in NaCl 100 1 gm In Saline 1 100ml. bag @ 100 mls/hr IVPB ONCE ONE Rx#:[id number] Insulin Regular 100 unit 5.05 19.258 In Sodium Chloride 0.9% 100 ml @ Per Protocol IV .Q0M [facility] Rx#:[id number] Lactated Ringers 1,000 ml 200 50 @ 50 mls/hr IV .Q20H [facility] Rx#:[id number] Norepinephrine 4 mg In 29.16 59.100 49.88 Sodium Chloride 0.9% 250 ml @ 0.02 MCG/KG/MIN 6. 248 mls/hr IV .Q24H [facility] Rx#:[id number] ceFAZolin 2 gm In Sodium 50 Chloride 0.9% 50 ml @ 100 mls/hr IVPB Q8HR [facility] Rx# :[id number] propofoL 1,000 mg In 38.95 Empty Bag 1 bag @ Titrate IV .Q0M [facility] Rx#: [id number] Oral 130 Tube Feeding 10 Blood Product 466 Pooled Cryoprecipitate 78 Unit [id number] Rc As-1 Unit 310 [id number] Output: Chest Tube Drainage 515 680 50 left and right pleural 230 580 30 mediastinal 285 100 20 Urine 1175 550 65 Estimated Blood Loss 1000 Other: Voiding Method Indwelling Catheter Indwelling Catheter ABP, PAP, CO, CI - Last Documented Arterial Blood Pressure 111/43 Pulmonary Artery Pressure 37/16 Cardiac Output 6.2 Cardiac Index 3.1 - Labs CBC & Chem 7: 10/02/21 04:00 10/02/21 04:00 Labs: Abnormal Lab Results - Last 24 Hours (Table) 09/25/21 10/01/21 10/01/21 Range/Units 13:31 14:30 14:30 WBC (3.8-10.6) k/uL RBC 2.73 L (4.30-5.90) m/uL Hgb 8.6 L (13.0-17.5) gm/dL Hct 25.5 L (39.0-53.0) % Plt Count 109 L (150-450) k/uL Neutrophils # 8.4 H (1.3-7.7) k/uL Lymphocytes # (1.0-4.8) k/uL PT 13.5 H (9.0-12.0) sec INR 1.3 H (<1.2) APTT 34.3 H (22.0-30.0) sec Fibrinogen 120 L (200-500) mg/dL Sodium (137-145) mmol/L Chloride (98-107) mmol/L Glucose (74-99) mg/dL POC Glucose (mg/dL) (70-110) mg/dL Calcium (8.4-10.2) mg/dL Ionized Calcium Monet (4.5-5.3) mg/dL Magnesium (1.6-2.3) mg/dL Alkaline Phosphatase (38-126) U/L Total Protein (6.3-8.2) g/dL Albumin (3.5-5.0) g/dL Crossmatch See Detail 10/01/21 10/01/21 10/01/21 Range/Units 14:31 14:50 16:18 WBC (3.8-10.6) k/uL RBC (4.30-5.90) m/uL Hgb (13.0-17.5) gm/dL Hct (39.0-53.0) % Plt Count (150-450) k/uL Neutrophils # (1.3-7.7) k/uL Lymphocytes # (1.0-4.8) k/uL PT (9.0-12.0) sec INR (<1.2) APTT (22.0-30.0) sec Fibrinogen (200-500) mg/dL Sodium 136 L (137-145) mmol/L Chloride 110 H (98-107) mmol/L Glucose 119 H (74-99) mg/dL POC Glucose (mg/dL) 138 H 181 H (70-110) mg/dL Calcium 6.9 L (8.4-10.2) mg/dL Ionized Calcium Monet 4.4 L (4.5-5.3) mg/dL Magnesium 2.5 H (1.6-2.3) mg/dL Alkaline Phosphatase 26 L (38-126) U/L Total Protein 3.5 L (6.3-8.2) g/dL Albumin 2.0 L (3.5-5.0) g/dL Crossmatch 10/01/21 10/01/21 10/01/21 Range/Units 17:20 18:01 18:03 WBC 10.7 H (3.8-10.6) k/uL RBC 2.49 L (4.30-5.90) m/uL Hgb 7.4 L (13.0-17.5) gm/dL Hct 22.7 L (39.0-53.0) % Plt Count 116 L (150-450) k/uL Neutrophils # 9.4 H (1.3-7.7) k/uL Lymphocytes # 0.7 L (1.0-4.8) k/uL PT (9.0-12.0) sec INR (<1.2) APTT (22.0-30.0) sec Fibrinogen (200-500) mg/dL Sodium (137-145) mmol/L Chloride (98-107) mmol/L Glucose (74-99) mg/dL POC Glucose (mg/dL) 166 H 156 H (70-110) mg/dL Calcium (8.4-10.2) mg/dL Ionized Calcium Monet (4.5-5.3) mg/dL Magnesium (1.6-2.3) mg/dL Alkaline Phosphatase (38-126) U/L Total Protein (6.3-8.2) g/dL Albumin (3.5-5.0) g/dL Crossmatch 10/01/21 10/01/21 10/01/21 Range/Units 19:06 19:45 19:47 WBC (3.8-10.6) k/uL RBC 2.34 L (4.30-5.90) m/uL Hgb 7.2 L (13.0-17.5) gm/dL Hct 21.9 L (39.0-53.0) % Plt Count 119 L (150-450) k/uL Neutrophils # 9.3 H (1.3-7.7) k/uL Lymphocytes # 0.5 L (1.0-4.8) k/uL PT (9.0-12.0) sec INR (<1.2) APTT (22.0-30.0) sec Fibrinogen (200-500) mg/dL Sodium (137-145) mmol/L Chloride (98-107) mmol/L Glucose (74-99) mg/dL POC Glucose (mg/dL) 156 H 147 H (70-110) mg/dL Calcium (8.4-10.2) mg/dL Ionized Calcium Monet (4.5-5.3) mg/dL Magnesium (1.6-2.3) mg/dL Alkaline Phosphatase (38-126) U/L Total Protein (6.3-8.2) g/dL Albumin (3.5-5.0) g/dL Crossmatch 10/01/21 10/01/21 10/01/21 Range/Units 21:02 21:44 22:49 WBC (3.8-10.6) k/uL RBC (4.30-5.90) m/uL Hgb (13.0-17.5) gm/dL Hct (39.0-53.0) % Plt Count (150-450) k/uL Neutrophils # (1.3-7.7) k/uL Lymphocytes # (1.0-4.8) k/uL PT (9.0-12.0) sec INR (<1.2) APTT (22.0-30.0) sec Fibrinogen (200-500) mg/dL Sodium (137-145) mmol/L Chloride (98-107) mmol/L Glucose (74-99) mg/dL POC Glucose (mg/dL) 140 H 138 H 134 H (70-110) mg/dL Calcium (8.4-10.2) mg/dL Ionized Calcium Monet (4.5-5.3) mg/dL Magnesium (1.6-2.3) mg/dL Alkaline Phosphatase (38-126) U/L Total Protein (6.3-8.2) g/dL Albumin (3.5-5.0) g/dL Crossmatch 10/01/21 10/02/21 10/02/21 Range/Units 23:57 00:52 01:56 WBC (3.8-10.6) k/uL RBC (4.30-5.90) m/uL Hgb (13.0-17.5) gm/dL Hct (39.0-53.0) % Plt Count (150-450) k/uL Neutrophils # (1.3-7.7) k/uL Lymphocytes # (1.0-4.8) k/uL PT (9.0-12.0) sec INR (<1.2) APTT (22.0-30.0) sec Fibrinogen (200-500) mg/dL Sodium (137-145) mmol/L Chloride (98-107) mmol/L Glucose (74-99) mg/dL POC Glucose (mg/dL) 138 H 133 H 153 H (70-110) mg/dL Calcium (8.4-10.2) mg/dL Ionized Calcium Monet (4.5-5.3) mg/dL Magnesium (1.6-2.3) mg/dL Alkaline Phosphatase (38-126) U/L Total Protein (6.3-8.2) g/dL Albumin (3.5-5.0) g/dL Crossmatch 10/02/21 10/02/21 10/02/21 Range/Units 02:52 03:58 04:00 WBC (3.8-10.6) k/uL RBC 2.38 L (4.30-5.90) m/uL Hgb 7.2 L (13.0-17.5) gm/dL Hct 21.8 L (39.0-53.0) % Plt Count 118 L (150-450) k/uL Neutrophils # 8.9 H (1.3-7.7) k/uL Lymphocytes # 0.6 L (1.0-4.8) k/uL PT (9.0-12.0) sec INR (<1.2) APTT (22.0-30.0) sec Fibrinogen (200-500) mg/dL Sodium (137-145) mmol/L Chloride (98-107) mmol/L Glucose (74-99) mg/dL POC Glucose (mg/dL) 139 H 133 H (70-110) mg/dL Calcium (8.4-10.2) mg/dL Ionized Calcium Monet (4.5-5.3) mg/dL Magnesium (1.6-2.3) mg/dL Alkaline Phosphatase (38-126) U/L Total Protein (6.3-8.2) g/dL Albumin (3.5-5.0) g/dL Crossmatch 10/02/21 10/02/21 10/02/21 Range/Units 04:00 04:58 05:26 WBC (3.8-10.6) k/uL RBC (4.30-5.90) m/uL Hgb (13.0-17.5) gm/dL Hct (39.0-53.0) % Plt Count (150-450) k/uL Neutrophils # (1.3-7.7) k/uL Lymphocytes # (1.0-4.8) k/uL PT (9.0-12.0) sec INR (<1.2) APTT (22.0-30.0) sec Fibrinogen (200-500) mg/dL Sodium (137-145) mmol/L Chloride 110 H (98-107) mmol/L Glucose 114 H (74-99) mg/dL POC Glucose (mg/dL) 133 H 138 H (70-110) mg/dL Calcium 7.5 L (8.4-10.2) mg/dL Ionized Calcium Monet (4.5-5.3) mg/dL Magnesium (1.6-2.3) mg/dL Alkaline Phosphatase 25 L (38-126) U/L Total Protein 4.6 L (6.3-8.2) g/dL Albumin 3.1 L (3.5-5.0) g/dL Crossmatch 10/02/21 10/02/21 10/02/21 Range/Units 05:56 06:54 08:42 WBC (3.8-10.6) k/uL RBC (4.30-5.90) m/uL Hgb (13.0-17.5) gm/dL Hct (39.0-53.0) % Plt Count (150-450) k/uL Neutrophils # (1.3-7.7) k/uL Lymphocytes # (1.0-4.8) k/uL PT (9.0-12.0) sec INR (<1.2) APTT (22.0-30.0) sec Fibrinogen (200-500) mg/dL Sodium (137-145) mmol/L Chloride (98-107) mmol/L Glucose (74-99) mg/dL POC Glucose (mg/dL) 137 H 134 H 132 H (70-110) mg/dL Calcium (8.4-10.2) mg/dL Ionized Calcium Monet (4.5-5.3) mg/dL Magnesium (1.6-2.3) mg/dL Alkaline Phosphatase (38-126) U/L Total Protein (6.3-8.2) g/dL Albumin (3.5-5.0) g/dL Crossmatch
[2021-10-02] MEDS: INSULIN ASPART (NovoLOG) 100 UNIT/ML VIAL SQ SCH ×3 (14:47→20:20)
[2021-10-02] MEDS: LACTATED RINGERS 1,000 ML IV SCH (14:47)
[2021-10-02] MEDS: METOPROLOL TARTRATE 12.5 MG TAB PO SCH ×2 (15:45→21:02)
[2021-10-02] MEDS: FERROUS SULFATE 325 MG TAB PO SCH (15:45)
[2021-10-02] MEDS: ASCORBIC ACID 500 MG TAB PO SCH (15:46)
[2021-10-02 17:10] LABS: Glucose,Whole Blood 149 mg/dL (70-110)
[2021-10-02] MEDS: KETOROLAC 15 MG/ML 1 ML VIAL IVP SCH (18:46)
[2021-10-02 20:17] LABS: Glucose,Whole Blood 150 mg/dL (70-110)
[2021-10-02] MEDS: SENNOSIDES-DOCUSATE SODIUM 1 EACH TAB PO SCH (20:20)
[2021-10-03] MEDS: KETOROLAC 15 MG/ML 1 ML VIAL IVP SCH ×4 (00:01→18:37)
[2021-10-03] MEDS: HEPARIN SODIUM,PORCINE/PF 5,000 UNIT/0.5 ML SYRINGE SQ SCH ×3 (00:02→16:53)
[2021-10-03 04:13] LABS: Ionized Calcium 4.5 mg/dL (4.5-5.3)
[2021-10-03 04:24] LABS: Basophils % (A) 0 %; Eosinophils % (A) 0 %; HCT 20.5 % (39.0-53.0); Lymphocytes # (A) 1.2 k/uL (1.0-4.8); Lymphocytes % (A) 12 %; MCH 31.5 pg (25.0-35.0); MCHC 34.1 g/dL (31.0-37.0); MCV 92.6 fL (80.0-100.0); Monocytes # (A) 0.5 k/uL (0-1.0); Monocytes % (A) 5 %; Neutrophils # (A) 8.1 k/uL (1.3-7.7); Neutrophils % (A) 82 %; RBC 2.21 m/uL (4.30-5.90); RDW 14.9 % (11.5-15.5); WBC 9.9 k/uL (3.8-10.6)
[2021-10-03 04:25] LABS: Mean Platelet Volume 9.6; Platelet Count 87 k/uL (150-450)
[2021-10-03 04:36] LABS: Albumin 3.1 g/dL (3.5-5.0); Calcium 7.6 mg/dL (8.4-10.2); Total Bilirubin 0.8 mg/dL (0.2-1.3); Total Protein 4.6 g/dL (6.3-8.2)
[2021-10-03] MEDS: ALBUMIN HUMAN 5% 250 ML in EMPTY BAG 1 BAG IVPB PRN (05:27)
[2021-10-03 06:45] LABS: Glucose,Whole Blood 146 mg/dL (70-110)
[2021-10-03] MEDS: ASCORBIC ACID 500 MG TAB PO SCH ×2 (06:49→16:53)
[2021-10-03] MEDS: PANTOPRAZOLE 40 MG TABLET PO SCH (06:49)
[2021-10-03] MEDS: INSULIN ASPART (NovoLOG) 100 UNIT/ML VIAL SQ SCH ×4 (06:49→21:39)
[2021-10-03] MEDS: FERROUS SULFATE 325 MG TAB PO SCH ×2 (06:49→16:53)
--- NOTE | 2021-10-03 07:06 | XR ---
EXAMINATION TYPE: XR chest 1V portable DATE OF EXAM: 10/03/2021 HISTORY: Post Operative Cardiac Surgery COMPARISON: 10/02/2021 TECHNIQUE: Single view of the chest is submitted. FINDINGS: [place]-Michaela catheter has been removed. Right-sided chest tube and left basilar chest tube as well as me diastinal drains remain in place. No pneumothorax visible. Post operative changes of CABG. No sizeable pneumothorax. Scattered Pleural-parenchymal opacities may reflect atelectasis. Mild persistent cardiac enlargement. IMPRESSION: 1. Post operative changes of CABG.
[2021-10-03] MEDS ORDERED: METOCLOPRAMIDE 5 MG/ML 2 ML VIAL IVP STA (07:11)
[2021-10-03] MEDS: HYDROcodone/APAP 5-325MG 1 EACH TAB PO PRN ×2 (07:35→21:33)
[2021-10-03] MEDS: IPRATROPIUM-ALBUTEROL 3 ML NEB INHALATION SCH ×4 (08:12→19:50)
[2021-10-03] MEDS: ASPIRIN 325 MG TAB PO SCH (08:37)
[2021-10-03] MEDS: CLOPIDOGREL 75 MG TAB PO SCH (08:37)
[2021-10-03] MEDS: ATORVASTATIN 40 MG TAB PO SCH (08:37)
[2021-10-03] MEDS: METOPROLOL TARTRATE 12.5 MG TAB PO SCH (08:37)
[2021-10-03] MEDS ORDERED: METOPROLOL TARTRATE 12.5 MG TAB PO ONE (09:30)
[2021-10-03] MEDS ORDERED: CALCIUM GLUCONATE IN NACL 1 GM in SALINE 1 100ML.BAG IVPB ONE (10:00)
--- NOTE | 2021-10-03 10:38 | P.PN ---
Subjective Progress Note Date: 10/03/21 Principal diagnosis: Coronary artery disease. Past medical history significant for hypertension, hyperlipidemia, lifetime nonsmoker, prostate cancer, asymptomatic Covid diagnosis in July 2021 as well as positive PCR [id number], both vaccinated and boosted. POD #2 coronary artery bypass grafting 4 vessels, left internal mammary artery to the diagonal artery, greater saphenous vein graft to the left anterior descending artery, radial artery to the obtuse marginal artery, and greater saphenous vein graft to posterior descending artery, endoscopic harvest of the left radial artery, endoscopic harvesting of bilateral greater saphenous veins, ligation of the left atrial appendage with a 35 mm AtriClip, epi-aortic ultrasound, intraoperative transesophageal echocardiogram. Postoperative acute blood loss anemia and thrombocytopenia, expected given hemodilution and cardiopulmonary bypass pump. The patient was seen and examined today 10/03/2021 at his bedside in the intensi ve care unit. Currently he is sitting up to the bedside chair, is awake, alert, oriented 3 and is in no acute distress. Denies any complaints of shortness of breath at this time although is complaining of some surgical type pain rating his pain 8 out of 10 to his chest tube insertion sites. Oxygen saturation are 96% on 3 L nasal cannula and he is achieving 1000 mL on his incentive spirometry. Right IJ cordis remains in place with current CVP pressure of 12 mmHg. Bedside telemetry showing sinus tachycardia heart rate 105 BPM. Current blood pressure is 121/53 mmHg. He remains hemodynamically stable and is currently on no inotropic or pressor support. Mediastinal, left and right pleural chest tubes remain in place to low continuous wall suction -20 cm H2O. No air leak is present. Draining thin serosanguineous drainage. Right and left pleural chest tubes drained 140 mL of drainage in the last 8 hours and 430 mL output in the last 24 hours. Mediastinal chest tubes drained 60 mL output in the last 8 hours and 220 mL output in the last 24 hours. The patient reports he did ambulate in his room yesterday to the doorway and back to the chair with assistance from nursing and therapy staff. Laboratory results this morning show a WBC count of 9.9, hemoglobin 7.0, hematocrit 20.5, platelets 87, sodium 134, potassium 4.0, BUN 26, creatinine 1.05, Diogenes 126, calcium 7.6, ionized calcium 4.5, and AST 99. Objective - Vital Signs Vital signs: Vital Signs Temp 97.5 F L 10/03/21 04:00 Pulse 103 H 10/03/21 08:22 Resp 20 10/03/21 08:12 BP 121/53 10/03/21 05:30 Pulse Ox 96 10/03/21 08:15 FiO2 50 10/01/21 20:00 Intake & Output 10/02/21 10/03/21 10/03/21 18:59 06:59 18:59 Intake Total 1671.038 712 26 Output Total 790 716 43 Balance 881.038 -4 -17 Weight 87.679 kg 90.4 kg Intake: IV 727 312 26 Lactated Ringers 1,000 ml 570 240 20 @ 20 mls/hr IV .Q24H [facility] Rx#:[id number] cardiac index 40 pressure bags 117 72 6 Intake, IV Titration 84.038 Amount Norepinephrine 4 mg In 84.038 Sodium Chloride 0.9% 250 ml @ 0.02 MCG/KG/MIN 6. 248 mls/hr IV .Q24H [facility] Rx#:[id number] Oral 240 400 Blood Product 620 Rc As-1 Unit 310 [id number] Output: Chest Tube Drainage 440 391 23 left and right pleural 290 261 13 mediastinal 150 130 10 Urine 350 325 20 Other: Voiding Method Indwelling Catheter Indwelling Catheter Indwelling Catheter ABP, PAP, CO, CI - Last Documented Arterial Blood Pressure 109/41 Pulmonary Artery Pressure 32/12 Cardiac Output 6.2 Cardiac Index 3.1 - Exam CONSTITUTIONAL: Sitting up to the bedside chair in the intensive care unit, ap pears uncomfortable and is complaining of surgical type pain, cooperative, no apparent acute distress. HEENT: Neck is supple, no JVD, no lymphadenopathy. Right IJ Cordis and functioning. RESPIRATORY: Lungs sounds essentially clear throughout, diminished to his bilateral bases. Respirations are symmetrical and nonlabored. Currently on 3 L nasal cannula with oxygen saturations 96%. Able to achieve 1000 mL on his incentive spirometry. Weak cough. CARDIOVASCULAR: Regular rhythm and tachycardic rate. S1 and S2 present, negative for S3, gallop or murmur. Sternum is stable. Palpable peripheral pulses bilaterally, no edema to his bilateral lower extremities. No calf pain or tenderness noted. Heart hugger in place with patient demonstrating appropriate use. Knee-high KAILASH hose and sequential compression devices in place to his bilateral lower extremities. GASTROINTESTINAL: Abdomen soft, nontender, nondistended. Hypoactive bowel sounds present 4 quadrants. Tolerating diet. Passing flatus. No guarding or rigidity. GENITOURINARY: Dueñas present draining clear, yellow urine. Output 215 mL in the last 8 hours INTEGUMENTARY: Skin is warm and dry with no evidence of clubbing or cyanosis. Midline sternal incision clean dry and well approximated, covered with dry intact dressing. Left and right lower extremity EVH sites well approximated without redness or drainage. Left arm radial artery harvest sites clean, dry and approximated. No drainage or redness is present. NEUROLOGIC: Cranial nerves II through XII intact. No focal deficits. MUSKULOSKELETAL: Able to move all extremities, strength equal bilaterally, generalized weakness. PSYCHIATRIC: Alert and oriented to person place and time, appropriate affect, intact judgment and insight. INVASIVE LINES AND TUBES: Mediastinal/left and right pleural chest tubes present and connected to low continuous wall suction, no air leaks present. Mediastinal tube with 60 mL of thin serosanguineous drainage overnight, 220 mL output in the last 24 hours. Left/right pleural chest tubes with 140 mL of thin serosanguineous drainage overnight, 430 mL output in the last 24 hours. Atrial and ventricular epicardial pacemaker wires present, connected to generator, VVI backup rate 50 bpm. Right internal jugular Cordis, right radial arterial line present. Current CVP 12 mmHg. - Allied health notes Allied health notes reviewed: nursing - Labs CBC & Chem 7: 10/03/21 03:51 10/03/21 03:51 Labs: Abnormal Lab Results - Last 24 Hours (Table) 09/25/21 10/01/21 10/02/21 Range/Units 13:31 06:20 08:42 RBC (4.30-5.90) m/uL Hgb (13.0-17.5) gm/dL Hct (39.0-53.0) % Plt Count (150-450) k/uL Neutrophils # (1.3-7.7) k/uL Sodium (137-145) mmol/L BUN (9-20) mg/dL Glucose (74-99) mg/dL POC Glucose (mg/dL) 132 H (70-110) mg/dL Calcium (8.4-10.2) mg/dL AST (17-59) U/L Alkaline Phosphatase (38-126) U/L Total Protein (6.3-8.2) g/dL Albumin (3.5-5.0) g/dL Crossmatch See Detail See Detail 10/02/21 10/02/21 10/02/21 Range/Units 11:43 17:08 20:16 RBC (4.30-5.90) m/uL Hgb (13.0-17.5) gm/dL Hct (39.0-53.0) % Plt Count (150-450) k/uL Neutrophils # (1.3-7.7) k/uL Sodium (137-145) mmol/L BUN (9-20) mg/dL Glucose (74-99) mg/dL POC Glucose (mg/dL) 112 H 149 H 150 H (70-110) mg/dL Calcium (8.4-10.2) mg/dL AST (17-59) U/L Alkaline Phosphatase (38-126) U/L Total Protein (6.3-8.2) g/dL Albumin (3.5-5.0) g/dL Crossmatch 10/03/21 10/03/21 10/03/21 Range/Units 03:51 03:51 06:45 RBC 2.21 L (4.30-5.90) m/uL Hgb 7.0 L (13.0-17.5) gm/dL Hct 20.5 L (39.0-53.0) % Plt Count 87 L (150-450) k/uL Neutrophils # 8.1 H (1.3-7.7) k/uL Sodium 134 L (137-145) mmol/L BUN 26 H (9-20) mg/dL Glucose 126 H (74-99) mg/dL POC Glucose (mg/dL) 146 H (70-110) mg/dL Calcium 7.6 L (8.4-10.2) mg/dL AST 99 H (17-59) U/L Alkaline Phosphatase 30 L (38-126) U/L Total Protein 4.6 L (6.3-8.2) g/dL Albumin 3.1 L (3.5-5.0) g/dL Crossmatch - Imaging and Cardiology Chest x-ray: report reviewed, image reviewed Assessment and Plan Assessment: 1. Coronary artery disease, status post four-vessel CABG 2. History of hypertension 3. Hyperlipidemia, treated 4. Lifetime nonsmoker, preoperative FEV1 90% of predicted 5. Prostate cancer 6. Asymptomatic Covid diagnosis in July 2021 as well as positive PCR [id number], both vaccinated and boosted 7. Postoperative acute blood loss anemia and thrombocytopenia, expected Plan: 1. Continue aspirin, statin, Plavix, beta adriane. We will increase metoprolol tartrate 25 mg by mouth twice a day. Wean norepinephrine drip as tolerated. We will add low dose calcium channel adriane when able for radial artery spasm prophylaxis. 2. Wean O2 as tolerated. Encourage incentive spirometry is 10 times every hour while awake. Bronchodilators per pulmonology/critical care medicine. Patient needs strong encouragement for pulmonary toileting 3. Increase activity as tolerated. PT/OT/cardiac rehab following. 4. Will monitor daily labs and chest x-rays. Electrolyte replacement per protocol. 5. Insulin management per primary care service. Patient is not a diabetic, preoperative hemoglobin A1c 5.9%. 6. Pain control with current medication regimen. 7. Continue Cordis to continuous CVP monitoring. 8. We will remove his right pleural and mediastinal chest tubes today. Keep left pleural chest tube in place for another 24 hours to low continuous wall suction -20 cm H2O. 9. Remove Dueñas catheter. Continue to record accurate intake and output. Me bladder scan every 6 hours and when necessary postvoid residual. Me straight cathed for greater than 300 mL of urine. Continue daily weights. 10. GI/DVT prophylaxis. 11. Calcium gluconate 1 g IV piggyback 1 now. 12. More recommendations to follow based on patient's clinical course. Time with Patient: Greater than 30
--- NOTE | 2021-10-03 11:09 | P.PN ---
Subjective Progress Note Date: 10/03/21 Principal diagnosis: CAD status post coronary artery bypass grafting This a very pleasant 71-year-old male patient with a known history of prostate cancer, hypertension, hyperlipidemia, previous COVID-19 diagnosis in July 2021 and a positive PCR 09/25/2021. The patient has been vaccinated and boosted. He was found to have significant coronary artery disease and presented here yesterday for an elective coronary artery bypass grafting. He did receive a MARSH to the diagonal, saphenous vein grafts to the LAD, posterior descending artery and radial artery to the obtuse marginal artery. He was successfully extubated at 20:20 last night. He has lactated Ringer's at 50 MLS per hour. Norepinephrine at 0.04 mcg/kg/m. Iinsulin at 2 units per hour. Chest x-ray does reveal worsening left greater than right basilar atelectasis. No evidence of pneumothorax. Bilateral and mediastinal chest tubes in place. Appendectomy is status post 2 units of packed red blood cells infusion. Current hemoglobin 7.7. Platelet count 118. White count 10.3. Sodium 138. Potassium 4.1. BUN 18. Creatinine 0.91. Glucose 132. AST 50. ALT 14. Albumin 3.1. He did receive albumin replacement. He is afebrile. Mean arterial pressure 65. PA pressure 20/8. CVP 5. Cardiac output 6.2. Cardiac index 3.1. He remains on bronchodilators. Working with the incentive spirometer. Heparin for DVT prophylaxis. Currently in a -725 ML balance. The patient is seen today 10/03/2021 in follow-up in the intensive care unit. He is currently sitting up in a chair at the bedside. Awake and alert in no acute distress. He is maintaining good O2 saturations in the 90s on 3 L/m per nasal cannula. Lactated Ringer's at 20 ML's per hour. Chest x-ray reveals bilateral chest tubes and mediastinal chest tubes in place. No evidence of pneumothorax.Significant pleural effusions. Some atelectasis noted. He continues to work well with the incentive spirometer. He is status post 2 units of packed red blood cells. One pooled cryoprecipitate. Current hemoglobin 7.0. Platelets 87,000. White count 9.9. Sodium 134. Potassium 4.0. BUN 26. Creatinine 1.04. Glucose 126. AST 99. ALT 17. He did receive albumin this morning. He remains on bronchodilators. Heparin for DVT prophylaxis. Objective - Vital Signs Vital signs: Vital Signs Temp 97.5 F L 10/03/21 04:00 Pulse 95 10/03/21 10:30 Resp 22 10/03/21 10:30 BP 121/53 10/03/21 05:30 Pulse Ox 95 10/03/21 10:30 FiO2 50 10/01/21 20:00 Intake & Output 10/02/21 10/03/21 10/03/21 18:59 06:59 18:59 Intake Total 1671.038 712 78 Output Total 790 716 88 Balance 881.038 -4 -10 Weight 87.679 kg 90.4 kg Intake: IV 727 312 78 Lactated Ringers 1,000 ml 570 240 60 @ 20 mls/hr IV .Q24H [facility] Rx#:[id number] cardiac index 40 pressure bags 117 72 18 Intake, IV Titration 84.038 Amount Norepinephrine 4 mg In 84.038 Sodium Chloride 0.9% 250 ml @ 0.02 MCG/KG/MIN 6. 248 mls/hr IV .Q24H [facility] Rx#:[id number] Oral 240 400 Blood Product 620 Rc As-1 Unit 310 [id number] Output: Chest Tube Drainage 440 391 23 left and right pleural 290 261 13 mediastinal 150 130 10 Urine 350 325 65 Other: Voiding Method Indwelling Catheter Indwelling Catheter Indwelling Catheter ABP, PAP, CO, CI - Last Documented Arterial Blood Pressure 133/54 Pulmonary Artery Pressure 32/12 Cardiac Output 6.2 Cardiac Index 3.1 - Exam GENERAL EXAM: Alert, very pleasant 71-year-old male patient, up in a chair, on 3 L nasal cannula, fairly comfortable in no apparent distress. HEAD: Normocephalic. EYES: Normal reaction of pupils, equal size. NOSE: Clear with pink turbinates. THROAT: No erythema or exudates. NECK: Right IJ [place]-Michaela catheter removed. No masses, no JVD. CHEST: Sternum stable, heart hugger in place. Right, left and mediastinal chest tubes in place to wall suction. No leaks noted. LUNGS: Equal air entry with crackles in the bilateral bases. CVS: S1 and S2 normal with no audible murmur, regular rhythm. AV epicardial pacemaker wires in place. Attached to generator, backup pacing at 50. ABDOMEN: No hepatosplenomegaly, normal bowel sounds, no guarding or rigidity. SPINE: No scoliosis or deformity SKIN: No rashes CENTRAL NERVOUS SYSTEM: No focal deficits, tone is normal in all 4 extremities. EXTREMITIES: Right radial arterial line in place. There is 1-2+ peripheral edema. No clubbing, no cyanosis. Peripheral pulses are intact. - Labs CBC & Chem 7: 10/03/21 03:51 10/03/21 03:51 Labs: Abnormal Lab Results - Last 24 Hours (Table) 09/25/21 10/01/21 10/02/21 Range/Units 13:31 06:20 11:43 RBC (4.30-5.90) m/uL Hgb (13.0-17.5) gm/dL Hct (39.0-53.0) % Plt Count (150-450) k/uL Neutrophils # (1.3-7.7) k/uL Sodium (137-145) mmol/L BUN (9-20) mg/dL Glucose (74-99) mg/dL POC Glucose (mg/dL) 112 H (70-110) mg/dL Calcium (8.4-10.2) mg/dL AST (17-59) U/L Alkaline Phosphatase (38-126) U/L Total Protein (6.3-8.2) g/dL Albumin (3.5-5.0) g/dL Crossmatch See Detail See Detail 10/02/21 10/02/21 10/03/21 Range/Units 17:08 20:16 03:51 RBC 2.21 L (4.30-5.90) m/uL Hgb 7.0 L (13.0-17.5) gm/dL Hct 20.5 L (39.0-53.0) % Plt Count 87 L (150-450) k/uL Neutrophils # 8.1 H (1.3-7.7) k/uL Sodium (137-145) mmol/L BUN (9-20) mg/dL Glucose (74-99) mg/dL POC Glucose (mg/dL) 149 H 150 H (70-110) mg/dL Calcium (8.4-10.2) mg/dL AST (17-59) U/L Alkaline Phosphatase (38-126) U/L Total Protein (6.3-8.2) g/dL Albumin (3.5-5.0) g/dL Crossmatch 10/03/21 10/03/21 Range/Units 03:51 06:45 RBC (4.30-5.90) m/uL Hgb (13.0-17.5) gm/dL Hct (39.0-53.0) % Plt Count (150-450) k/uL Neutrophils # (1.3-7.7) k/uL Sodium 134 L (137-145) mmol/L BUN 26 H (9-20) mg/dL Glucose 126 H (74-99) mg/dL POC Glucose (mg/dL) 146 H (70-110) mg/dL Calcium 7.6 L (8.4-10.2) mg/dL AST 99 H (17-59) U/L Alkaline Phosphatase 30 L (38-126) U/L Total Protein 4.6 L (6.3-8.2) g/dL Albumin 3.1 L (3.5-5.0) g/dL Crossmatch Assessment and Plan Assessment: 1 Coronary artery disease status post coronary artery bypass grafting 4 with a MARSH to the diagonal artery, SVG to the LAD, radial artery to the obtuse marginal artery, saphenous vein graft to the posterior descending artery. Postoperative day #2. 2 Hypotension improved and off the norepinephrine 3 Postoperative anemia, expected, received 2 units of packed red blood cells 4 Hyperlipidemia 5 Hypertension, history of 6 History of prostate cancer 7 Previous CoVID diagnosis in July 2021, positive PCR on 09/25/2021. He is vaccinated and boosted Plan: The patient was seen and evaluated Chest x-ray, labs and medications reviewed Encourage increased use the incentive spirometer Continue bronchodilators Titrate down the FiO2 as tolerated Increase his activity as tolerated Heparin for DVT prophylaxis We will continue to follow I have personally seen and examined the patient, performed the documentation and the assessment and plan as written. Number of minutes spent on the visit: 10.
--- NOTE | 2021-10-03 11:38 | P.PN ---
Subjective Progress Note Date: 10/03/21 Principal diagnosis: Coronary artery disease Patient continued to be hemodynamically stable chest tube was removed and patient feels much relief from yesterday Objective - Vital Signs Vital signs: Vital Signs Temp 97.5 F L 10/03/21 04:00 Pulse 95 10/03/21 10:30 Resp 22 10/03/21 10:30 BP 121/53 10/03/21 05:30 Pulse Ox 95 10/03/21 10:30 FiO2 50 10/01/21 20:00 Intake & Output 10/02/21 10/03/21 10/03/21 18:59 06:59 18:59 Intake Total 1671.038 712 78 Output Total 790 716 88 Balance 881.038 -4 -10 Weight 87.679 kg 90.4 kg Intake: IV 727 312 78 Lactated Ringers 1,000 ml 570 240 60 @ 20 mls/hr IV .Q24H [facility] Rx#:[id number] cardiac index 40 pressure bags 117 72 18 Intake, IV Titration 84.038 Amount Norepinephrine 4 mg In 84.038 Sodium Chloride 0.9% 250 ml @ 0.02 MCG/KG/MIN 6. 248 mls/hr IV .Q24H [facility] Rx#:[id number] Oral 240 400 Blood Product 620 Rc As-1 Unit 310 [id number] Output: Chest Tube Drainage 440 391 23 left and right pleural 290 261 13 mediastinal 150 130 10 Urine 350 325 65 Other: Voiding Method Indwelling Catheter Indwelling Catheter Indwelling Catheter ABP, PAP, CO, CI - Last Documented Arterial Blood Pressure 133/54 Pulmonary Artery Pressure 32/12 Cardiac Output 6.2 Cardiac Index 3.1 - Exam Gen.: in stated age, no acute distress Heart: Normal S1-S2 Lungs: Clear to auscultation bilaterally Abdomen: Soft, no tenderness, positive bowel sounds in all 4 quadrant no guarding or rebound Skin: No new rash Psych: Alert and oriented 3 Neuro: No focal deficit - Labs CBC & Chem 7: 10/03/21 03:51 10/03/21 03:51 Labs: Abnormal Lab Results - Last 24 Hours (Table) 09/25/21 10/01/21 10/02/21 Range/Units 13:31 06:20 11:43 RBC (4.30-5.90) m/uL Hgb (13.0-17.5) gm/dL Hct (39.0-53.0) % Plt Count (150-450) k/uL Neutrophils # (1.3-7.7) k/uL Sodium (137-145) mmol/L BUN (9-20) mg/dL Glucose (74-99) mg/dL POC Glucose (mg/dL) 112 H (70-110) mg/dL Calcium (8.4-10.2) mg/dL AST (17-59) U/L Alkaline Phosphatase (38-126) U/L Total Protein (6.3-8.2) g/dL Albumin (3.5-5.0) g/dL Crossmatch See Detail See Detail 10/02/21 10/02/21 10/03/21 Range/Units 17:08 20:16 03:51 RBC 2.21 L (4.30-5.90) m/uL Hgb 7.0 L (13.0-17.5) gm/dL Hct 20.5 L (39.0-53.0) % Plt Count 87 L (150-450) k/uL Neutrophils # 8.1 H (1.3-7.7) k/uL Sodium (137-145) mmol/L BUN (9-20) mg/dL Glucose (74-99) mg/dL POC Glucose (mg/dL) 149 H 150 H (70-110) mg/dL Calcium (8.4-10.2) mg/dL AST (17-59) U/L Alkaline Phosphatase (38-126) U/L Total Protein (6.3-8.2) g/dL Albumin (3.5-5.0) g/dL Crossmatch 10/03/21 10/03/21 Range/Units 03:51 06:45 RBC (4.30-5.90) m/uL Hgb (13.0-17.5) gm/dL Hct (39.0-53.0) % Plt Count (150-450) k/uL Neutrophils # (1.3-7.7) k/uL Sodium 134 L (137-145) mmol/L BUN 26 H (9-20) mg/dL Glucose 126 H (74-99) mg/dL POC Glucose (mg/dL) 146 H (70-110) mg/dL Calcium 7.6 L (8.4-10.2) mg/dL AST 99 H (17-59) U/L Alkaline Phosphatase 30 L (38-126) U/L Total Protein 4.6 L (6.3-8.2) g/dL Albumin 3.1 L (3.5-5.0) g/dL Crossmatch Assessment and Plan Assessment: 1. Coronary artery disease status post bypass surgery. 2. Recent respiratory failure status post successful extubation. 3. Hypertension. 4. Hyperlipidemia. 5. Hyperglycemia. 6. Anemia of chronic disease and blood loss. Patient seems to be hemodynamically stable, follow-up with general surgery recommendation, continue cardioprotective medication, continue with intensive care unit monitoring and follow-up on electrolytes in the morning. Plan discussed with patient and nursing staff at the bedside
[2021-10-03 11:56] LABS: Glucose,Whole Blood 129 mg/dL (70-110)
--- NOTE | 2021-10-03 12:15 | P.CRDCN ---
History of Present Illness Consult date: 10/03/21 History of present illness: The patient is a 71-year-old male who is a patient of Dr. Edmond and recently underwent CABG 4 with MARSH to diagonal, SVG to LAD, radial artery to OM 1, and SVG to PDA with Dr. Driscoll. He is currently postop day 2 and has since been extubated and assisted to the recliner chair. The patient had mild hypotension this morning, which responded to albumin administration. Telemetry readings show sinus rhythm to sinus tachycardia in the low 100s. Lab data: Hemoglobin 7.0, WBC 9.9, platelet 87, sodium 134, potassium 4.0, BUN 26, creatinine 1.05, AST 99, ALP 70 The patient was interviewed and examined, where he states he is doing well this morning. He is currently undergoing a breathing treatment. He denies any current pain. No dizziness or lightheadedness when he ambulated to the chair. No difficulty breathing at rest. PAST MEDICAL HISTORY: Hypertension, dyslipidemia, prostate cancer REVIEW OF SYSTEMS: No fever or chills. No cough or expectoration. No diaphoresis. Patient denies headache, dizziness, blurred vision, double vision. Patient denies any stomach discomfort. No nausea, vomiting. No hematochezia. No hematemesis. Denies any black stools or blood in his stools. Denies dysuria or hematuria. No muscle weakness or numbness. No chest pain or chest pressure PHYSICAL EXAMINATION: This is a 71-year-old male in no apparent distress at the time of my examination. HEENT: Head is atraumatic, normocephalic. Pupils are equal, round. Sclerae anicteric. Conjunctivae are clear. Mucous membranes of the mouth are moist. Neck is supple. There is no jugular venous distention. No carotid bruit is heard. CHEST EXAMINATION: Fine crackles noted in the left lower lung field. Positive for chest wall tenderness is noted on palpation or with deep breathing. HEART EXAMINATION: Heart regular rate and rhythm. S1, S2 heard. No murmurs, gallops or rub. ABDOMEN: Soft, nontender. No organomegaly noted. EXTREMITIES: 2+ peripheral pulses with no evidence of peripheral edema and no calf tenderness noted. NEUROLOGIC EXAMINATION: Patient is awake, alert and oriented x3. FINAL ASSESSMENT AND PLAN: Multivessel coronary artery disease Status post CABG 4 Postoperative anemia, hemoglobin currently 7 History of hypertension History of dyslipidemia PLAN: No additional recommendations from the cardiac standpoint Continue supportive treatment Further recommendations based on clinical course I am dictating on behalf of Dr Paulie Woods's history/physical and assessment/plan. Past Medical History Past Medical History: Coronary Artery Disease (CAD), Cancer, Hyperlipidemia, Hypertension Additional Past Medical History / Comment(s): prostate cancer; positive Covid PCR in July 2019, and 09/25/2021 History of Any Multi-Drug Resistant Organisms: None Reported Past Surgical History: No Surgical Hx Reported, Heart Catheterization Additional Past Surgical History / Comment(s): colonoscopy; heart catheterization 09/25/2021 Past Anesthesia/Blood Transfusion Reactions: No Reported Reaction Smoking Status: Never smoker - Past Family History Mother Family Medical History: No Reported History Father Family Medical History: No Reported History Medications and Allergies Home Medications Medication Instructions Recorded Confirmed Type Aspirin 81 mg PO DAILY 09/24/21 10/01/21 History Atorvastatin [Lipitor] 20 mg PO DAILY 09/24/21 10/01/21 History Lisinopril-Hctz 10-12.5 mg 1 tab PO DAILY 09/24/21 10/01/21 History [Zestoretic 10-12.5] Metoprolol Tartrate [Lopressor] 25 mg PO BID #180 tablet 09/25/21 10/01/21 Rx Allergies Allergy/AdvReac Type Severity Reaction Status Date / Time No Known Allergies Allergy Verified 10/01/21 06:30 Physical Exam Vitals: Vital Signs Temp Pulse Resp BP Pulse Ox 10/03/21 08:22 103 H 10/03/21 08:15 96 10/03/21 08:12 105 H 20 10/03/21 08:00 105 H 13 95 10/03/21 07:30 105 H 24 96 10/03/21 07:00 93 21 96 10/03/21 06:30 90 19 95 10/03/21 06:00 91 22 93 L 10/03/21 05:30 101 H 16 121/53 92 L 10/03/21 05:00 97 13 121/53 95 10/03/21 04:30 85 15 121/53 95 10/03/21 04:00 97.5 F L 85 12 121/53 96 10/03/21 03:30 80 15 121/53 95 10/03/21 03:00 81 10 L 95 10/03/21 02:30 84 12 94 L 10/03/21 02:00 90 13 95 10/03/21 01:30 84 12 95 10/03/21 01:00 87 15 95 10/03/21 00:30 82 12 95 10/03/21 00:00 98.0 F 79 18 97 10/02/21 23:30 78 19 96 10/02/21 23:00 78 18 96 10/02/21 22:30 80 15 96 10/02/21 22:00 94 16 95 10/02/21 21:30 86 15 95 10/02/21 21:00 90 17 95 10/02/21 20:30 89 19 96 10/02/21 20:00 97.4 F L 94 17 94 L 10/02/21 19:57 94 L 10/02/21 19:30 91 18 92 L 10/02/21 19:00 88 16 92 L 10/02/21 18:30 96 2 L 93 L 10/02/21 18:00 89 6 L 92 L 10/02/21 17:30 85 18 95 10/02/21 17:00 93 28 H 95 10/02/21 16:30 88 17 94 L 10/02/21 16:00 98.6 F 98 20 94 L 10/02/21 15:30 105 H 25 H 94 L 10/02/21 15:00 90 17 95 10/02/21 14:35 99.0 F 90 24 121/49 96 10/02/21 14:30 90 17 121/53 95 10/02/21 14:00 90 20 94 L 10/02/21 13:30 121 H 37 H 93 L 10/02/21 13:00 96 8 L 95 10/02/21 12:30 93 17 96 10/02/21 12:00 99.3 F 98 20 94 L 10/02/21 11:30 98 19 96 10/02/21 11:00 16 95 10/02/21 10:32 99 F 96 22 114/45 94 L 10/02/21 10:30 95 14 95 10/02/21 10:02 99.0 F 96 20 98/65 96 10/02/21 10:00 101 H 20 96 10/02/21 09:52 99.0 F 96 20 103/47 96 10/02/21 09:30 96 16 94 L 10/02/21 09:00 97 19 95 10/02/21 08:30 96 31 H 96 Intake and Output 10/02/21 10/03/21 10/03/21 22:59 06:59 14:59 Intake Total 589 608 26 Output Total 710 416 43 Balance -121 192 -17 Intake: IV 349 208 26 Lactated Ringers 1,000 ml 280 160 20 @ 20 mls/hr IV .Q24H [facility] Rx#:[id number] pressure bags 69 48 6 Oral 240 400 Output: Chest Tube Drainage 430 201 23 left and right pleural 290 141 13 mediastinal 140 60 10 Urine 280 215 20 Other: Voiding Method Indwelling Catheter Indwelling Catheter Indwelling Catheter Weight 90.4 kg ABP, PAP, CO, CI - Last 8 Hours Arterial Blood Pressure 109/41 Arterial Blood Pressure 120/46 Arterial Blood Pressure 126/50 Arterial Blood Pressure 111/43 Arterial Blood Pressure 111/46 Arterial Blood Pressure 115/41 Arterial Blood Pressure 126/45 Arterial Blood Pressure 108/46 Arterial Blood Pressure 122/48 Arterial Blood Pressure 117/47 Arterial Blood Pressure 100/43 Arterial Blood Pressure 113/45 Arterial Blood Pressure 109/43 Arterial Blood Pressure 115/47 Arterial Blood Pressure 117/47 Arterial Blood Pressure 117/48 Results 10/03/21 03:51 10/03/21 03:51 Cardiac Enzymes 10/03/21 Range/Units 03:51 AST 99 H (17-59) U/L CBC 10/03/21 Range/Units 03:51 WBC 9.9 (3.8-10.6) k/uL RBC 2.21 L (4.30-5.90) m/uL Hgb 7.0 L (13.0-17.5) gm/dL Hct 20.5 L (39.0-53.0) % Plt Count 87 L (150-450) k/uL Comprehensive Metabolic Panel 10/03/21 Range/Units 03:51 Sodium 134 L (137-145) mmol/L Potassium 4.0 (3.5-5.1) mmol/L Chloride 105 (98-107) mmol/L Carbon Dioxide 26 (22-30) mmol/L BUN 26 H (9-20) mg/dL Creatinine 1.05 (0.66-1.25) mg/dL Glucose 126 H (74-99) mg/dL Calcium 7.6 L (8.4-10.2) mg/dL AST 99 H (17-59) U/L ALT 17 (4-49) U/L Alkaline Phosphatase 30 L (38-126) U/L Total Protein 4.6 L (6.3-8.2) g/dL Albumin 3.1 L (3.5-5.0) g/dL Current Medications Generic Name Dose Route Start Last Admin Trade Name Freq PRN Reason Stop Dose Admin Acetaminophen 650 mg 10/02/21 07:20 Acetaminophen Tab 325 Mg Tab PO Q4HR PRN Fever and/ or Mild Pain Hydrocodone Bitart/Acetaminophen 2 each 10/02/21 01:41 10/03/21 07:35 Hydrocodone/Apap 5-325mg 1 Each Tab PO 2 each Q4HR PRN Administration Severe Pain Hydrocodone Bitart/Acetaminophen 1 each 10/02/21 01:41 Hydrocodone/Apap 5-325mg 1 Each Tab PO Q4HR PRN Moderate Pain Albuterol/Ipratropium 3 ml 10/01/21 14:07 Ipratropium-Albuterol 3 Ml Neb INHALATION RT-Q2H PRN Shortness Of Breath Or Wheezing Albuterol/Ipratropium 3 ml 10/01/21 20:00 10/03/21 08:12 Ipratropium-Albuterol 3 Ml Neb INHALATION 3 ml RT-QID [facility] Administration Ascorbic Acid 500 mg 10/02/21 17:30 10/03/21 06:49 Ascorbic Acid 500 Mg Tab PO 500 mg BID-W/MEALS [facility] Administration Aspirin 325 mg 10/02/21 09:00 10/02/21 08:28 Aspirin 325 Mg Tab PO 325 mg DAILY [facility] Administration Atorvastatin Calcium 40 mg 10/02/21 09:00 10/02/21 08:29 Atorvastatin 40 Mg Tab PO 40 mg DAILY [facility] Administration Benzocaine/Menthol 1 each 10/01/21 14:07 Benzocaine/Menthol Lozeng 1 Each Lozenge MUCOUS MEM Q2H PRN Sore Throat Bisacodyl 10 mg 10/02/21 09:00 Bisacodyl 10 Mg Supp RECTAL DAILY PRN Constipation Clopidogrel Bisulfate 75 mg 10/02/21 09:00 10/02/21 08:28 Clopidogrel 75 Mg Tab PO 75 mg DAILY [facility] Administration Ferrous Sulfate 325 mg 10/02/21 17:30 10/03/21 06:49 Ferrous Sulfate 325 Mg Tab PO 325 mg BID-W/MEALS [facility] Administration Heparin Sodium (Porcine) 5,000 unit 10/01/21 16:00 10/03/21 07:34 Heparin Sodium,Porcine/Pf 5,000 Unit/0.5 Ml Syringe SQ 5,000 unit Q8HR [facility] Administration Amiodarone HCl 150 mg/ 103 mls @ 618 mls/hr 10/01/21 14:07 Dextrose/Water IV .Q10M PRN A.FIB/FLUTTER Protocol Amiodarone HCl 360 mg/ 207.2 mls @ 34.533 mls/hr 10/01/21 14:07 Dextrose/Water IV .Q6H PRN A.FIB/FLUTTER Protocol 1 MG/MIN Amiodarone HCl 450 mg/ 250 mls @ 16.667 mls/hr 10/01/21 14:07 Dextrose/Water IV .Q15H PRN A.FIB/FLUTTER Protocol 0.5 MG/MIN Albumin Human 250 ml/ IV 250 mls @ 250 mls/hr 10/01/21 14:07 10/03/21 05:27 Solution IVPB 10/03/21 14:08 250 mls/hr Q1HR PRN Administration For Volume Protocol Lactated Ringer's 1,000 mls @ 20 mls/hr 10/01/21 14:07 10/02/21 14:47 Lactated Ringers IV Not Given .Q24H [facility] Insulin Aspart 0 unit 10/02/21 12:30 10/03/21 06:49 Insulin Aspart (Novolog) 100 Unit/Ml Vial SQ 1 unit ACHS [facility] Administration Protocol Ketorolac Tromethamine 15 mg 10/02/21 18:00 10/03/21 06:48 Ketorolac 15 Mg/Ml 1 Ml Vial IVP 10/05/21 15:39 15 mg Q6HR [facility] Administration Magnesium Hydroxide 2,400 mg 10/02/21 09:00 Magnesium Hydroxide 2,400 Mg/10 Ml Cup PO BID PRN Constipation Metoclopramide HCl 10 mg 10/01/21 14:07 10/02/21 07:08 Metoclopramide 5 Mg/Ml 2 Ml Vial IVP 10 mg Q4H PRN Administration Nausea And Vomiting Metoprolol Tartrate 12.5 mg 10/02/21 16:00 10/02/21 21:02 Metoprolol Tartrate 12.5 Mg Tab PO 12.5 mg TID [facility] Administration Miscellaneous Information 1 each 10/01/21 14:07 Potassium Replacement Protocol 1 Each Misc MISCELLANE DAILY PRN Per Protocol Protocol Miscellaneous Information 1 each 10/01/21 14:07 Magnesium Replacement Protocol 1 Each Misc MISCELLANE DAILY PRN Per Protocol Protocol Ondansetron HCl 4 mg 10/01/21 14:07 Ondansetron 4 Mg/2 Ml Vial IVP Q6HR PRN Nausea And Vomiting Pantoprazole Sodium 40 mg 10/03/21 07:30 10/03/21 06:49 Pantoprazole 40 Mg Tablet PO 40 mg [id number] [facility] Administration Senna/Docusate Sodium 2 each 10/02/21 21:00 10/02/21 20:20 Sennosides-Docusate Sodium 1 Each Tab PO 2 each HS [facility] Administration Sodium Chloride 10 ml 10/01/21 21:00 10/02/21 20:21 Sodium Chloride 0.9% Flush 10 Ml Syringe IV 10 ml BID [facility] Administration Intake and Output 10/02/21 10/03/21 10/03/21 22:59 06:59 14:59 Intake Total 589 608 26 Output Total 710 416 43 Balance -121 192 -17 Intake: IV 349 208 26 Lactated Ringers 1,000 ml 280 160 20 @ 20 mls/hr IV .Q24H [facility] Rx#:[id number] pressure bags 69 48 6 Oral 240 400 Output: Chest Tube Drainage 430 201 23 left and right pleural 290 141 13 mediastinal 140 60 10 Urine 280 215 20 Other: Voiding Method Indwelling Catheter Indwelling Catheter Indwelling Catheter Weight 90.4 kg 10/03/21 03:51 10/03/21 03:51
--- NOTE | 2021-10-03 13:02 | CONS ---
CONSULTATION This is a 71-year-old gentleman with a history of hypertension, hyperlipidemia, who was scheduled for prostate surgery and underwent a stress test that was positive and cardiac cath by Dr. Diaz revealed significant triple-vessel disease with a chronic occlusion of mid LAD, severe stenosis in RCA and circumflex. LV systolic function was well preserved. He underwent aortocoronary bypass surgery performed by Dr. Driscoll yesterday with a left internal mammary artery graft to the diagonal branch, saphenous vein graft to the LAD, free radial artery graft to the obtuse marginal and a saphenous vein graft to the PDA branch of RCA. Post procedure, the patient has done well but he had an episode of hypotension requiring volume and he is feeling better, but he is slightly tachycardic at the time of my evaluation. Denies any chest discomfort. He is extubated, resting comfortably. PAST MEDICAL HISTORY: Remarkable for hypertension, hyperlipidemia, benign prostatic hypertrophy. PHYSICAL EXAMINATION: On examination, blood pressure is 110/70, pulse rate is about 100 per minute. HEENT unremarkable. Fundus was not examined. Neck is supple. No JVD. I do not hear a carotid bruit. Heart exam reveals S1, S2 with a pericardial rub. Lungs reveal fair air entry. Abdomen is soft. Lower extremities reveal diminished pulses. Central nervous system is grossly within normal limits. IMPRESSION: 1. Status post aortocoronary bypass surgery extubated, had an episode of high hypovolemia requiring IV fluids. 2. Hypertension. 3. Hyperlipidemia. RECOMMENDATIONS: I am recommending in addition to incentive spirometry and pulmonary toilet, I will give him some additional IV fluids and a small dose of beta adriane once the epinephrine drip is weaned off. I discussed my thoughts in detail with the patient. Thank you very much for the consult. MMODL / IJN: [id number] /
[2021-10-03] MEDS: LACTATED RINGERS 1,000 ML IV SCH (13:27)
[2021-10-03] MEDS ORDERED: METOPROLOL TARTRATE 25 MG TAB PO SCH ×2 (16:01→21:00)
[2021-10-03 16:51] LABS: Glucose,Whole Blood 151 mg/dL (70-110)
[2021-10-03] MEDS: METOPROLOL TARTRATE 25 MG TAB PO SCH ×2 (17:42→23:12)
[2021-10-03 20:48] LABS: Glucose,Whole Blood 147 mg/dL (70-110)
[2021-10-03] MEDS: SENNOSIDES-DOCUSATE SODIUM 1 EACH TAB PO SCH (21:38)
[2021-10-04] MEDS: KETOROLAC 15 MG/ML 1 ML VIAL IVP SCH ×4 (01:56→18:33)
[2021-10-04] MEDS: HEPARIN SODIUM,PORCINE/PF 5,000 UNIT/0.5 ML SYRINGE SQ SCH ×3 (01:56→16:30)
[2021-10-04] MEDS: HYDROcodone/APAP 5-325MG 1 EACH TAB PO PRN (02:32)
[2021-10-04 05:29] LABS: Basophils % (A) 0 %; Eosinophils # (A) 0.1 k/uL (0-0.7); Eosinophils % (A) 1 %; HCT 20.2 % (39.0-53.0); Lymphocytes # (A) 1.1 k/uL (1.0-4.8); Lymphocytes % (A) 11 %; MCH 30.2 pg (25.0-35.0); MCHC 32.4 g/dL (31.0-37.0); MCV 93.1 fL (80.0-100.0); Mean Platelet Volume 9.1; Monocytes # (A) 0.4 k/uL (0-1.0); Monocytes % (A) 4 %; Neutrophils # (A) 8.1 k/uL (1.3-7.7); Neutrophils % (A) 83 %; Platelet Count 117 k/uL (150-450); RBC 2.17 m/uL (4.30-5.90); RDW 14.1 % (11.5-15.5); WBC 9.8 k/uL (3.8-10.6)
[2021-10-04 05:41] LABS: Albumin 2.9 g/dL (3.5-5.0); Calcium 7.8 mg/dL (8.4-10.2); Potassium 3.8 mmol/L (3.5-5.1); Total Bilirubin 0.6 mg/dL (0.2-1.3); Total Protein 4.6 g/dL (6.3-8.2)
[2021-10-04 05:44] LABS: HGB 6.6 gm/dL (13.0-17.5)
[2021-10-04 06:32] LABS: Glucose,Whole Blood 132 mg/dL (70-110)
[2021-10-04] MEDS ORDERED: POTASSIUM CHLORIDE ER 20 MEQ TAB.ER PO SCH (07:00)
[2021-10-04] MEDS: PANTOPRAZOLE 40 MG TABLET PO SCH (07:04)
[2021-10-04] MEDS: FERROUS SULFATE 325 MG TAB PO SCH ×2 (07:04→16:30)
[2021-10-04] MEDS: ASCORBIC ACID 500 MG TAB PO SCH ×2 (07:04→16:30)
[2021-10-04] MEDS: INSULIN ASPART (NovoLOG) 100 UNIT/ML VIAL SQ SCH ×4 (07:07→20:47)
--- NOTE | 2021-10-04 07:43 | XR ---
EXAMINATION TYPE: XR chest 1V portable DATE OF EXAM: 10/04/2021 COMPARISON: 10/03/2021 HISTORY: Postoperative cardiac surgery FINDINGS: Right-sided chest tube has been removed. No pneumothorax seen. Right basilar atelectasis. Left basila r chest tube remains in place. Mediastinal drains have been removed. Right IJ sheath is in place. No change in bibasilar opacities. Stable appearance of the cardio-mediastinal structures at this time. IMPRESSION: 1. Stable portable chest. Indwelling tubes as noted. Clinical correlation and follow up until resolu tion is recommended.
[2021-10-04] MEDS: IPRATROPIUM-ALBUTEROL 3 ML NEB INHALATION SCH ×4 (07:58→19:37)
[2021-10-04] MEDS ORDERED: POTASSIUM CHLORIDE ER 10 MEQ TAB.ER.PRT PO STA (09:11)
[2021-10-04] MEDS ORDERED: FUROSEMIDE 10 MG/ML 2 ML VIAL IV STA (09:11)
[2021-10-04] MEDS: CLOPIDOGREL 75 MG TAB PO SCH (09:19)
[2021-10-04] MEDS: ASPIRIN 325 MG TAB PO SCH (09:19)
[2021-10-04] MEDS: METOPROLOL TARTRATE 25 MG TAB PO SCH ×3 (09:19→21:02)
[2021-10-04] MEDS: DILTIAZEM ORAL 30 MG TAB PO SCH ×3 (09:19→21:02)
[2021-10-04] MEDS: ATORVASTATIN 40 MG TAB PO SCH (09:19)
--- NOTE | 2021-10-04 09:42 | P.PN ---
Subjective Progress Note Date: 10/04/21 Principal diagnosis: Coronary artery disease Patient is sitting up in chair this morning speaking full sentences denying chest pain shortness breath and stated that his pain has been improving steadily Objective - Vital Signs Vital signs: Vital Signs Temp 97.9 F 10/04/21 04:00 Pulse 92 10/04/21 08:07 Resp 16 10/04/21 08:07 BP 121/53 10/03/21 17:30 Pulse Ox 96 10/04/21 08:00 FiO2 50 10/01/21 20:00 Intake & Output 10/03/21 10/04/21 10/04/21 18:59 06:59 18:59 Intake Total 286 662 26 Output Total 113 625 20 Balance 173 37 6 Weight 93.9 kg Intake: IV 286 312 26 Lactated Ringers 1,000 ml 220 240 20 @ 20 mls/hr IV .Q24H [facility] Rx#:[id number] pressure bags 66 72 6 Oral 350 Output: Chest Tube Drainage 48 125 20 left and right pleural 13 mediastinal 35 125 20 Urine 65 500 Other: Voiding Method Indwelling Catheter ABP, PAP, CO, CI - Last Documented Arterial Blood Pressure 94/58 Pulmonary Artery Pressure 32/12 Cardiac Output 6.2 Cardiac Index 3.1 - Exam Gen.: in stated age, no acute distress Heart: Normal S1-S2 Lungs: Clear to auscultation bilaterally Abdomen: Soft, no tenderness, positive bowel sounds in all 4 quadrant no guarding or rebound Skin: No new rash Psych: Alert and oriented 3 Neuro: No focal deficit - Labs CBC & Chem 7: 10/04/21 05:00 10/04/21 05:00 Labs: Abnormal Lab Results - Last 24 Hours (Table) 10/03/21 10/03/21 10/03/21 Range/Units 11:55 16:49 20:47 RBC (4.30-5.90) m/uL Hgb (13.0-17.5) gm/dL Hct (39.0-53.0) % Plt Count (150-450) k/uL Neutrophils # (1.3-7.7) k/uL Sodium (137-145) mmol/L BUN (9-20) mg/dL Glucose (74-99) mg/dL POC Glucose (mg/dL) 129 H 151 H 147 H (70-110) mg/dL Calcium (8.4-10.2) mg/dL AST (17-59) U/L Total Protein (6.3-8.2) g/dL Albumin (3.5-5.0) g/dL 10/04/21 10/04/21 10/04/21 Range/Units 05:00 05:00 06:31 RBC 2.17 L (4.30-5.90) m/uL Hgb 6.6 L* (13.0-17.5) gm/dL Hct 20.2 L (39.0-53.0) % Plt Count 117 L (150-450) k/uL Neutrophils # 8.1 H (1.3-7.7) k/uL Sodium 132 L (137-145) mmol/L BUN 28 H (9-20) mg/dL Glucose 116 H (74-99) mg/dL POC Glucose (mg/dL) 132 H (70-110) mg/dL Calcium 7.8 L (8.4-10.2) mg/dL AST 80 H (17-59) U/L Total Protein 4.6 L (6.3-8.2) g/dL Albumin 2.9 L (3.5-5.0) g/dL Assessment and Plan Assessment: 1. Coronary artery disease status post bypass surgery. 2. Recent respiratory failure status post successful extubation. 3. Hypertension. 4. Hyperlipidemia. 5. Hyperglycemia. 6. Anemia of chronic disease and blood loss. Hemoglobin this morning was 6.6. We'll follow-up with critical care and surgery regarding transfusion and we will repeat after transfusion. Consider diuretics based on clinical progress. Continue monitoring kidney function electrolytes and continue with tight glycemic control. Physical therapy to evaluate the patient and consideration for PMNR consult based on clinical progress.
--- NOTE | 2021-10-04 10:16 | P.PN ---
Subjective Progress Note Date: 10/04/21 Principal diagnosis: Coronary artery disease. Past medical history significant for hypertension, hyperlipidemia, lifetime nonsmoker, prostate cancer, asymptomatic Covid diagnosis in July 2021 as well as positive PCR [id number], both vaccinated and boosted. POD #3 coronary artery bypass grafting 4 vessels, left internal mammary artery to the diagonal artery, greater saphenous vein graft to the left anterior descending artery, radial artery to the obtuse marginal artery, and greater saphenous vein graft to posterior descending artery, endoscopic harvest of the left radial artery, endoscopic harvesting of bilateral greater saphenous veins, ligation of the left atrial appendage with a 35 mm AtriClip, epi-aortic ultrasound, intraoperative transesophageal echocardiogram. Postoperative acute blood loss anemia and thrombocytopenia, expected given hemodilution and cardiopulmonary bypass pump. The patient was seen and examined today 10/04/2021 at his bedside in the intensi ve care unit. Currently he is sitting up to the bedside chair, is awake, alert, oriented 3 and is in no acute distress. Denies any complaints of shortness of breath at this time. Oxygen saturations are 94% on 2 L nasal cannula and he is achieving 8958-0224 mL on his incentive spirometry with encouragement. Bedside telemetry showing normal sinus rhythm heart rate 93 BPM. He remains hemodynami mariana stable and is currently on no inotropic or pressor support. He reports he was up inflating in the intensive care unit in all way 2-3 yesterday with standby assistance from nursing and therapy staff. Tolerated ambulating well. Left pleural chest tube remains in place to low continuous wall suction -20 cm H2O. No air leak is present. Draining thin serosanguineous drainage with 105 mL output in the last 8 hours and 230 mL output in the last 24 hours. Laboratory results this morning show a WBC count of 9.8, hemoglobin 6.6, hematocrit 20.2, platelets 117, sodium 132, potassium 3.8, BUN 28, creatinine 1.07, glucose 116, calcium 7.8 and AST 80. The patient has some urine retention last evening requiring straight catheterization and his urine output in the last 8 hours is 500 mL. Right IJ cordis remains in place with continuous CVP monitoring, current CVP pressure 8 mmHg. Objective - Vital Signs Vital signs: Vital Signs Temp 97.9 F 10/04/21 04:00 Pulse 92 10/04/21 08:07 Resp 16 10/04/21 08:07 BP 121/53 10/03/21 17:30 Pulse Ox 96 10/04/21 08:00 FiO2 50 10/01/21 20:00 Intake & Output 10/03/21 10/04/21 10/04/21 18:59 06:59 18:59 Intake Total 286 662 26 Output Total 113 625 20 Balance 173 37 6 Weight 93.9 kg Intake: IV 286 312 26 Lactated Ringers 1,000 ml 220 240 20 @ 20 mls/hr IV .Q24H [facility] Rx#:[id number] pressure bags 66 72 6 Oral 350 Output: Chest Tube Drainage 48 125 20 left and right pleural 13 mediastinal 35 125 20 Urine 65 500 Other: Voiding Method Indwelling Catheter ABP, PAP, CO, CI - Last Documented Arterial Blood Pressure 94/58 Pulmonary Artery Pressure 32/12 Cardiac Output 6.2 Cardiac Index 3.1 - Exam CONSTITUTIONAL: Sitting up to the bedside chair in the intensive care unit, appears comfortable, cooperative, no apparent acute distress. HEENT: Neck is supple, no JVD, no lymphadenopathy. Right IJ Cordis and functioning. RESPIRATORY: Lungs sounds essentially clear throughout, diminished to his bilateral bases. Respirations are symmetrical and nonlabored. Currently on 2 L nasal cannula with oxygen saturations 94%. Able to achieve 6762-9279 mL on his incentive spirometry. Weak cough. CARDIOVASCULAR: Regular rhythm and tachycardic rate. S1 and S2 present, negative for S3, gallop or murmur. Sternum is stable. Palpable peripheral pulses bilaterally, no edema to his bilateral lower extremities. No calf pain or tenderness noted. Heart hugger in place with patient demonstrating appropriate use. Knee-high KAILASH hose and sequential compression devices in place to his bilateral lower extremities. GASTROINTESTINAL: Abdomen soft, nontender, nondistended. Hypoactive bowel so unds present 4 quadrants. Tolerating diet. Passing flatus. No guarding or rigidity. GENITOURINARY: Continues to void. Urine Output 500 mL in the last 8 hours. INTEGUMENTARY: Skin is warm and dry with no evidence of clubbing or cyanosis. Midline sternal incision clean dry and well approximated, covered with dry intact dressing. Left and right lower extremity EVH sites well approximated wit hout redness or drainage. Left arm radial artery harvest sites clean, dry and approximated. No drainage or redness is present. NEUROLOGIC: Cranial nerves II through XII intact. No focal deficits. MUSKULOSKELETAL: Able to move all extremities, strength equal bilaterally, generalized weakness. PSYCHIATRIC: Alert and oriented to person place and time, appropriate affect, intact judgment and insight. INVASIVE LINES AND TUBES: Left pleural chest tube present and connected to low continuous wall suction, no air leak present. Left pleural chest tube with 105 mL of thin serosanguineous drainage overnight, 230 mL output in the last 24 hours. Atrial and ventricular epicardial pacemaker wires present, and are grounded Right internal jugular Cordis, right radial arterial line present. Current CVP 8 mmHg. - Allied health notes Allied health notes reviewed: nursing - Labs CBC & Chem 7: 10/04/21 05:00 10/04/21 05:00 Labs: Abnormal Lab Results - Last 24 Hours (Table) 10/03/21 10/03/21 10/03/21 Range/Units 11:55 16:49 20:47 RBC (4.30-5.90) m/uL Hgb (13.0-17.5) gm/dL Hct (39.0-53.0) % Plt Count (150-450) k/uL Neutrophils # (1.3-7.7) k/uL Sodium (137-145) mmol/L BUN (9-20) mg/dL Glucose (74-99) mg/dL POC Glucose (mg/dL) 129 H 151 H 147 H (70-110) mg/dL Calcium (8.4-10.2) mg/dL AST (17-59) U/L Total Protein (6.3-8.2) g/dL Albumin (3.5-5.0) g/dL 10/04/21 10/04/21 10/04/21 Range/Units 05:00 05:00 06:31 RBC 2.17 L (4.30-5.90) m/uL Hgb 6.6 L* (13.0-17.5) gm/dL Hct 20.2 L (39.0-53.0) % Plt Count 117 L (150-450) k/uL Neutrophils # 8.1 H (1.3-7.7) k/uL Sodium 132 L (137-145) mmol/L BUN 28 H (9-20) mg/dL Glucose 116 H (74-99) mg/dL POC Glucose (mg/dL) 132 H (70-110) mg/dL Calcium 7.8 L (8.4-10.2) mg/dL AST 80 H (17-59) U/L Total Protein 4.6 L (6.3-8.2) g/dL Albumin 2.9 L (3.5-5.0) g/dL - Imaging and Cardiology Chest x-ray: report reviewed, image reviewed Assessment and Plan Assessment: 1. Coronary artery disease, status post four-vessel CABG 2. History of hypertension 3. Hyperlipidemia, treated 4. Lifetime nonsmoker, preoperative FEV1 90% of predicted 5. Prostate cancer, awaiting future prostatectomy 6. Asymptomatic Covid diagnosis in July 2021 as well as positive PCR [id number], both vaccinated and boosted 7. Postoperative acute blood loss anemia and thrombocytopenia, expected Plan: 1. Continue aspirin, statin, Plavix, beta adriane. We will increase metoprolol tartrate 25 as tolerated. 2. Wean O2 as tolerated. Encourage incentive spirometry is 10 times every hour while awake. Bronchodilators per pulmonology/critical care medicine. Patient needs strong encouragement for pulmonary toileting 3. Increase activity as tolerated. PT/OT/cardiac rehab following. 4. Will monitor daily labs and chest x-rays. Electrolyte replacement per protocol. 5. Insulin management per primary care service. Patient is not a diabetic, pr eoperative hemoglobin A1c 5.9%. 6. Pain control with current medication regimen. Discontinue Rye. 7. Remove right IJ Cordis. Remove right radial arterial line. 8. We will remove his left pleural chest tube today. 9. Continue to record accurate intake and output. Me bladder scan every 6 rogelio rs and when necessary postvoid residual. Me straight cathed for greater than 300 mL of urine. Continue daily weights. 10. GI/DVT prophylaxis. 11. Lasix 20 mg IV 1 now and potassium chloride 10 mEq by mouth 1 now. 12. Start Flomax 0.4 mg by mouth daily for urinary retention. 13. Cardizem 30 mg by mouth every 6 hours started for radial artery spasm prophylaxis. 14. Keep atrial and ventricular epicardial pacemaker wires in place, anticipate removal in the next 24 hours. 15. More recommendations to follow based on patient's clinical course. Time with Patient: Greater than 30
--- NOTE | 2021-10-04 10:21 | P.PN ---
Subjective Progress Note Date: 10/04/21 Principal diagnosis: CAD status post coronary artery bypass grafting This a very pleasant 71-year-old male patient with a known history of prostate cancer, hypertension, hyperlipidemia, previous COVID-19 diagnosis in July 2021 and a positive PCR 09/25/2021. The patient has been vaccinated and boosted. He was found to have significant coronary artery disease and presented here yesterday for an elective coronary artery bypass grafting. He did receive a MARSH to the diagonal, saphenous vein grafts to the LAD, posterior descending artery and radial artery to the obtuse marginal artery. He was successfully extubated at 20:20 last night. He has lactated Ringer's at 50 MLS per hour. Norepinephrine at 0.04 mcg/kg/m. Iinsulin at 2 units per hour. Chest x-ray does reveal worsening left greater than right basilar atelectasis. No evidence of pneumothorax. Bilateral and mediastinal chest tubes in place. Appendectomy is status post 2 units of packed red blood cells infusion. Current hemoglobin 7.7. Platelet count 118. White count 10.3. Sodium 138. Potassium 4.1. BUN 18. Creatinine 0.91. Glucose 132. AST 50. ALT 14. Albumin 3.1. He did receive albumin replacement. He is afebrile. Mean arterial pressure 65. PA pressure 20/8. CVP 5. Cardiac output 6.2. Cardiac index 3.1. He remains on bronchodilators. Working with the incentive spirometer. Heparin for DVT prophylaxis. Currently in a -725 ML balance. The patient is seen today 10/03/2021 in follow-up in the intensive care unit. He is currently sitting up in a chair at the bedside. Awake and alert in no acute distress. He is maintaining good O2 saturations in the 90s on 3 L/m per nasal cannula. Lactated Ringer's at 20 ML's per hour. Chest x-ray reveals bilateral chest tubes and mediastinal chest tubes in place. No evidence of pneumothorax.Significant pleural effusions. Some atelectasis noted. He continues to work well with the incentive spirometer. He is status post 2 units of packed red blood cells. One pooled cryoprecipitate. Current hemoglobin 7.0. Platelets 87,000. White count 9.9. Sodium 134. Potassium 4.0. BUN 26. Creatinine 1.04. Glucose 126. AST 99. ALT 17. He did receive albumin this morning. He remains on bronchodilators. Heparin for DVT prophylaxis. The patient is seen today 10/04/2021 in follow-up in the intensive care unit. Postoperative day #3. He is awake and alert in no acute distress. He is maintaining good O2 saturations in the 90s on 2 L/m per nasal cannula. He sitting up in a chair at the bedside. No IV fluids. Chest x-ray remains stable. Bibasilar opacities remain. Right-sided chest tube has been removed. No evidence of pneumothorax. Left basilar chest remains in place. Mediastinal tubes have been removed. Right IJ sheath in place. He received 2 units of packed red blood cells admission. 1 pooled cryoprecipitate. Current hemoglobin 6.6. Platelets 117. White count 9.8. Sodium 132. Potassium 3.8. BUN 28. Creatinine 1.07. AST 80. ALT 24. Glucose 132. Melena positive. 177 ML balance. He remains on bronchodilators. Heparin for DVT prophylaxis. Objective - Vital Signs Vital signs: Vital Signs Temp 98.1 F 10/04/21 09:00 Pulse 88 10/04/21 10:00 Resp 24 10/04/21 10:00 BP 138/64 10/04/21 10:00 Pulse Ox 96 10/04/21 10:00 FiO2 50 10/01/21 20:00 Intake & Output 10/03/21 10/04/21 10/04/21 18:59 06:59 18:59 Intake Total 286 662 26 Output Total 113 625 20 Balance 173 37 6 Weight 93.9 kg Intake: IV 286 312 26 Lactated Ringers 1,000 ml 220 240 20 @ 20 mls/hr IV .Q24H [facility] Rx#:[id number] pressure bags 66 72 6 Oral 350 Output: Chest Tube Drainage 48 125 20 left and right pleural 13 mediastinal 35 125 20 Urine 65 500 Other: Voiding Method Indwelling Catheter ABP, PAP, CO, CI - Last Documented Arterial Blood Pressure 94/58 Pulmonary Artery Pressure 32/12 Cardiac Output 6.2 Cardiac Index 3.1 - Exam GENERAL EXAM: Alert, very pleasant 71-year-old male patient, up in a chair, on 2 L nasal cannula, fairly comfortable in no apparent distress. HEAD: Normocephalic. EYES: Normal reaction of pupils, equal size. NOSE: Clear with pink turbinates. THROAT: No erythema or exudates. NECK: Right IJ cordis remains. No masses, no JVD. CHEST: Sternum stable, heart hugger in place. Right and mediastinal chest tubes removed. Left chest tube remains in place. LUNGS: Equal air entry with crackles in the bilateral bases. CVS: S1 and S2 normal with no audible murmur, regular rhythm. ABDOMEN: No hepatosplenomegaly, normal bowel sounds, no guarding or rigidity. SPINE: No scoliosis or deformity SKIN: No rashes CENTRAL NERVOUS SYSTEM: No focal deficits, tone is normal in all 4 extremities. EXTREMITIES: There is 1-2+ peripheral edema. No clubbing, no cyanosis. Peripheral pulses are intact. - Labs CBC & Chem 7: 10/04/21 05:00 10/04/21 05:00 Labs: Abnormal Lab Results - Last 24 Hours (Table) 10/03/21 10/03/21 10/03/21 Range/Units 11:55 16:49 20:47 RBC (4.30-5.90) m/uL Hgb (13.0-17.5) gm/dL Hct (39.0-53.0) % Plt Count (150-450) k/uL Neutrophils # (1.3-7.7) k/uL Sodium (137-145) mmol/L BUN (9-20) mg/dL Glucose (74-99) mg/dL POC Glucose (mg/dL) 129 H 151 H 147 H (70-110) mg/dL Calcium (8.4-10.2) mg/dL AST (17-59) U/L Total Protein (6.3-8.2) g/dL Albumin (3.5-5.0) g/dL 10/04/21 10/04/21 10/04/21 Range/Units 05:00 05:00 06:31 RBC 2.17 L (4.30-5.90) m/uL Hgb 6.6 L* (13.0-17.5) gm/dL Hct 20.2 L (39.0-53.0) % Plt Count 117 L (150-450) k/uL Neutrophils # 8.1 H (1.3-7.7) k/uL Sodium 132 L (137-145) mmol/L BUN 28 H (9-20) mg/dL Glucose 116 H (74-99) mg/dL POC Glucose (mg/dL) 132 H (70-110) mg/dL Calcium 7.8 L (8.4-10.2) mg/dL AST 80 H (17-59) U/L Total Protein 4.6 L (6.3-8.2) g/dL Albumin 2.9 L (3.5-5.0) g/dL Assessment and Plan Assessment: Coronary artery disease status post coronary artery bypass grafting 4 with a MARSH to the diagonal artery, SVG to the LAD, radial artery to the obtuse marginal artery, saphenous vein graft to the posterior descending artery. Postoperative day #3. Hypotension improved and off the norepinephrine Postoperative anemia, expected, received 2 units of packed red blood cells, current hemoglobin 6.6 Hyperlipidemia Hypertension, history of History of prostate cancer Previous CoVID diagnosis in July 2021, positive PCR on 09/25/2021. He is vaccinated and boosted Plan: The patient was seen and evaluated Chest x-ray, labs and medications reviewed Doing well and up in a chair, on 2 L Continue the use of the incentive spirometer Titrate down the FiO2 as tolerated Increase his activity as tolerated Heparin for DVT prophylaxis We will continue to follow I have personally seen and examined the patient, performed the documentation and the assessment and plan as written. Number of minutes spent on the visit: 10.
--- NOTE | 2021-10-04 11:15 | P.PN ---
Subjective Progress Note Date: 10/04/21 Patient is a 71-year-old male who underwent CABG 4. Postoperative complications included anemia. Hemoglobin 6.6 today. The patient was interviewed and examined sitting in the recliner chair. He states he does have some weakness and discomfort in his chest when ambulating. No difficulty breathing or orthopnea. No dizziness or lightheadedness. GENERAL: Well-appearing, well-nourished and in no acute distress. NECK: Supple without JVD or thyromegaly. LUNGS: Breath sounds diminished to auscultation bilaterally. Respiration equal and unlabored. No wheezes, rales or rhonchi. HEART: Regular rate and rhythm. Systolic murmur. No rubs or gallops. S1 and S2 heard. EXTREMITIES: Normal range of motion, no edema. No clubbing or cyanosis. Peripheral pulses intact and strong. VITALS: Blood pressure 121/62, pulse 88, temp 98.1F, respiratory rate 23, SpO2 95% on 2 L nasal cannula TELEMETRY: Sinus rhythm to sinus tachycardia with heart rates in the 90s. LABS: WBC 9.8, hemoglobin 6.6, hematocrit 20.2, platelet 117, sodium 132, potassium 3.8, BUN 28, creatinine 1.07, AST 80, ALT 24 IMPRESSION: Multivessel coronary artery disease Status post CABG 4 Postoperative anemia, hemoglobin 6.6 History of hypertension History of dyslipidemia PLAN: Continue supportive treatment Continue aggressive pulmonary hygiene Further recommendations to be based upon clinical course I am dictating on behalf of Dr Paulie Woods's history/physical and assessment/plan. Objective - Vital Signs Vital signs: Vital Signs Temp 97.9 F 10/04/21 04:00 Pulse 92 10/04/21 08:07 Resp 16 10/04/21 08:07 BP 121/53 10/03/21 17:30 Pulse Ox 96 10/04/21 08:00 FiO2 50 10/01/21 20:00 Intake & Output 10/03/21 10/04/21 10/04/21 18:59 06:59 18:59 Intake Total 286 662 26 Output Total 113 625 20 Balance 173 37 6 Weight 93.9 kg Intake: IV 286 312 26 Lactated Ringers 1,000 ml 220 240 20 @ 20 mls/hr IV .Q24H [facility] Rx#:[id number] pressure bags 66 72 6 Oral 350 Output: Chest Tube Drainage 48 125 20 left and right pleural 13 mediastinal 35 125 20 Urine 65 500 Other: Voiding Method Indwelling Catheter ABP, PAP, CO, CI - Last Documented Arterial Blood Pressure 94/58 Pulmonary Artery Pressure 32/12 Cardiac Output 6.2 Cardiac Index 3.1 - Labs CBC & Chem 7: 10/04/21 05:00 10/04/21 05:00 Labs: Abnormal Lab Results - Last 24 Hours (Table) 10/03/21 10/03/21 10/03/21 Range/Units 11:55 16:49 20:47 RBC (4.30-5.90) m/uL Hgb (13.0-17.5) gm/dL Hct (39.0-53.0) % Plt Count (150-450) k/uL Neutrophils # (1.3-7.7) k/uL Sodium (137-145) mmol/L BUN (9-20) mg/dL Glucose (74-99) mg/dL POC Glucose (mg/dL) 129 H 151 H 147 H (70-110) mg/dL Calcium (8.4-10.2) mg/dL AST (17-59) U/L Total Protein (6.3-8.2) g/dL Albumin (3.5-5.0) g/dL 10/04/21 10/04/21 10/04/21 Range/Units 05:00 05:00 06:31 RBC 2.17 L (4.30-5.90) m/uL Hgb 6.6 L* (13.0-17.5) gm/dL Hct 20.2 L (39.0-53.0) % Plt Count 117 L (150-450) k/uL Neutrophils # 8.1 H (1.3-7.7) k/uL Sodium 132 L (137-145) mmol/L BUN 28 H (9-20) mg/dL Glucose 116 H (74-99) mg/dL POC Glucose (mg/dL) 132 H (70-110) mg/dL Calcium 7.8 L (8.4-10.2) mg/dL AST 80 H (17-59) U/L Total Protein 4.6 L (6.3-8.2) g/dL Albumin 2.9 L (3.5-5.0) g/dL
[2021-10-04 11:48] LABS: Glucose,Whole Blood 116 mg/dL (70-110)
[2021-10-04 16:37] LABS: Glucose,Whole Blood 125 mg/dL (70-110)
[2021-10-04] MEDS: TAMSULOSIN 0.4 MG CAP.ER.24H PO SCH (18:33)
[2021-10-04 20:35] LABS: Glucose,Whole Blood 134 mg/dL (70-110)
[2021-10-04] MEDS: SENNOSIDES-DOCUSATE SODIUM 1 EACH TAB PO SCH (20:44)
[2021-10-05] MEDS: HEPARIN SODIUM,PORCINE/PF 5,000 UNIT/0.5 ML SYRINGE SQ SCH ×3 (01:05→17:04)
[2021-10-05] MEDS: KETOROLAC 15 MG/ML 1 ML VIAL IVP SCH ×2 (01:05→07:13)
[2021-10-05 06:43] LABS: HCT 20.2 % (39.0-53.0); MCH 31.1 pg (25.0-35.0); MCV 94.2 fL (80.0-100.0); Mean Platelet Volume 8.5; Platelet Count 142 k/uL (150-450); RBC 2.14 m/uL (4.30-5.90); RDW 14.8 % (11.5-15.5); WBC 7.2 k/uL (3.8-10.6)
[2021-10-05 06:47] LABS: HGB 6.7 gm/dL (13.0-17.5)
[2021-10-05 06:48] LABS: Glucose,Whole Blood 144 mg/dL (70-110)
[2021-10-05 06:53] LABS: Albumin 2.9 g/dL (3.5-5.0); Calcium 7.9 mg/dL (8.4-10.2); Total Bilirubin 0.8 mg/dL (0.2-1.3); Total Protein 4.8 g/dL (6.3-8.2)
[2021-10-05] MEDS: ASCORBIC ACID 500 MG TAB PO SCH ×2 (07:14→17:05)
[2021-10-05] MEDS: PANTOPRAZOLE 40 MG TABLET PO SCH (07:14)
[2021-10-05] MEDS: INSULIN ASPART (NovoLOG) 100 UNIT/ML VIAL SQ SCH ×4 (07:14→20:40)
[2021-10-05] MEDS: FERROUS SULFATE 325 MG TAB PO SCH ×2 (07:14→17:05)
--- NOTE | 2021-10-05 07:31 | XR ---
EXAMINATION TYPE: XR chest 2V DATE OF EXAM: 10/05/2021 HISTORY: Shortness of breath. COMPARISON: 10/04/2021 TECHNIQUE: Single view of the chest is submitted. FINDINGS: Left-sided chest tube has been removed. No evidence for pneumothorax. Perihilar and basilar pleural-parenchymal opacities persists. The heart is stable. Hilar and mediastinal structures are within normal limits. Degenerative changes are seen of the dorsal spine. IMPRESSION: 1. Stable appearance of the chest. Removal of left-sided chest tube without pneumothorax.
[2021-10-05] MEDS: IPRATROPIUM-ALBUTEROL 3 ML NEB INHALATION SCH ×4 (08:20→21:41)
[2021-10-05] MEDS: ATORVASTATIN 40 MG TAB PO SCH (08:31)
[2021-10-05] MEDS: METOPROLOL TARTRATE 25 MG TAB PO SCH ×2 (08:31→20:39)
[2021-10-05] MEDS: CLOPIDOGREL 75 MG TAB PO SCH (08:31)
[2021-10-05] MEDS: DILTIAZEM ORAL 30 MG TAB PO SCH (08:31)
[2021-10-05] MEDS: ASPIRIN 325 MG TAB PO SCH (08:31)
--- NOTE | 2021-10-05 08:35 | P.GSCN ---
History of Present Illness Consult date: 10/05/21 Reason for Consult: Urinary retention Requesting physician: Jacques Waters History of present illness: The patient is a 71-year-old white male diagnosed with prostate cancer in March 2021. He chose to undergo a robotic prostatectomy as treatment for his prostate cancer, and this is to be performed at [facility] in November. He required cardiac clearance. His stress test was abnormal, and he underwent CABG on 10/01/2021. He developed urinary retention, and we are consulted for this reason. He is currently receiving tamsulosin but did not take it prior to admission. He denies voiding difficulty prior to admission, though he states that he has always been a very infrequent voider. Review of Systems - Cardiovascular Reports as per HPI - Genitourinary Reports as per HPI Past Medical History Past Medical History: Coronary Artery Disease (CAD), Cancer, Hyperlipidemia, Hypertension Additional Past Medical History / Comment(s): prostate cancer; positive Covid PCR in July 2019, and 09/25/2021 History of Any Multi-Drug Resistant Organisms: None Reported Past Surgical History: No Surgical Hx Reported, Heart Catheterization Additional Past Surgical History / Comment(s): colonoscopy; heart catheterization 09/25/2021 Past Anesthesia/Blood Transfusion Reactions: No Reported Reaction Smoking Status: Never smoker - Past Family History Mother Family Medical History: No Reported History Father Family Medical History: No Reported History Medications and Allergies Home Medications Medication Instructions Recorded Confirmed Type Aspirin 81 mg PO DAILY 09/24/21 10/01/21 History Atorvastatin [Lipitor] 20 mg PO DAILY 09/24/21 10/01/21 History Lisinopril-Hctz 10-12.5 mg 1 tab PO DAILY 09/24/21 10/01/21 History [Zestoretic 10-12.5] Metoprolol Tartrate [Lopressor] 25 mg PO BID #180 tablet 09/25/21 10/01/21 Rx Allergies Allergy/AdvReac Type Severity Reaction Status Date / Time No Known Allergies Allergy Verified 10/01/21 06:30 Surgical - Exam Vital Signs Temp Pulse Resp BP Pulse Ox 96.5 F L 64 18 142/69 97 10/01/21 06:10 10/01/21 06:10 10/01/21 06:10 10/01/21 06:10 10/01/21 06:10 - General well developed, well nourished, no distress - Respiratory normal respiratory effort - Abdomen Abdomen: soft, non tender, no guarding, no rigid, no rebound - Psychiatric oriented to time, oriented to person, oriented to place, speech is normal, memory intact Results - Labs 10/05/21 06:03 10/05/21 06:03 Abnormal Lab Results - Last 24 Hours (Table) 10/04/21 10/04/21 10/04/21 Range/Units 06:31 11:45 16:35 POC Glucose (mg/dL) 132 H 116 H 125 H (70-110) mg/dL 10/04/21 Range/Units 20:34 POC Glucose (mg/dL) 134 H (70-110) mg/dL Assessment and Plan (1) Retention of urine, unspecified Current Visit: Yes Status: Acute Code(s): R33.9 - RETENTION OF URINE, UNSPECIFIED SNOMED Code(s): 901464797 (2) Malignant neoplasm of prostate Current Visit: Yes Status: Acute Code(s): C61 - MALIGNANT NEOPLASM OF PROSTATE SNOMED Code(s): 673502839 Plan: There is a chance Mr. Ortega will be discharged home later today. If so, he should be discharged home with the catheter and follow up with Dr. Hooker as an outpatient. Conversely, if he remains hospitalized until tomorrow, the catheter may be removed tomorrow morning for a voiding trial. He should remain on tamsulosin until his retention has resolved.
--- NOTE | 2021-10-05 09:14 | P.PN ---
Subjective Progress Note Date: 10/05/21 The patient is a 71-year-old male who underwent CABG 4. Postoperative complications include anemia. Hemoglobin remains low at 6.7. The patient was interviewed and examined sitting in the recliner chair. He states he did well overnight and has no current complaints. No chest pain or chest pressure. No difficulty breathing or orthopnea. No dizziness or lightheadedness. GENERAL: Well-appearing, well-nourished and in no acute distress. NECK: Supple without JVD or thyromegaly. LUNGS: Breath sounds clear to auscultation bilaterally. Respiration equal and unlabored. No wheezes, rales or rhonchi. HEART: Regular rate and rhythm. Systolic murmur. No rubs or gallops. S1 and S2 heard. EXTREMITIES: Normal range of motion, no edema. No clubbing or cyanosis. Peripheral pulses intact and strong. VITALS: Blood pressure 104/55, pulse 99, respiratory rate 25, temp 98.5F TELEMETRY: Sinus rhythm to sinus tachycardia with heart rates in the 90s. LABS: WBC 7.2, hemoglobin 6.7, hematocrit 20.2, platelet 142, sodium 133, potassium 4.0, BUN 30, creatinine 1.17, AST 66, ALT 26 IMPRESSION: Multivessel coronary artery disease Status post CABG 4 Postoperative anemia, hemoglobin 6.7 History of hypertension History of dyslipidemia PLAN: Continue supportive treatment Continue aggressive pulmonary hygiene Further recommendations to be based upon clinical course I am dictating on behalf of Dr Paulie Woods's history/physical and assessment/plan. Objective - Vital Signs Vital signs: Vital Signs Temp 98.5 F 10/05/21 08:00 Pulse 99 10/05/21 08:00 Resp 26 H 10/05/21 08:00 BP 104/55 10/05/21 08:00 Pulse Ox 94 L 10/05/21 08:00 FiO2 50 10/01/21 20:00 Intake & Output 10/04/21 10/05/21 10/05/21 18:59 06:59 18:59 Intake Total 604 500 100 Output Total 1100 790 0 Balance -496 -290 100 Weight 90.1 kg Intake: IV 104 Lactated Ringers 1,000 ml 80 @ 20 mls/hr IV .Q24H [facility] Rx#:[id number] pressure bags 24 Oral 500 500 100 Output: Chest Tube Drainage 20 mediastinal 20 Urine 1080 790 0 Other: Voiding Method Indwelling Catheter Indwelling Catheter ABP, PAP, CO, CI - Last Documented Arterial Blood Pressure 94/58 Pulmonary Artery Pressure 32/12 Cardiac Output 6.2 Cardiac Index 3.1 - Labs CBC & Chem 7: 10/05/21 06:03 10/05/21 06:03 Labs: Abnormal Lab Results - Last 24 Hours (Table) 10/04/21 10/04/21 10/04/21 Range/Units 11:45 16:35 20:34 RBC (4.30-5.90) m/uL Hgb (13.0-17.5) gm/dL Hct (39.0-53.0) % Plt Count (150-450) k/uL Sodium (137-145) mmol/L BUN (9-20) mg/dL Glucose (74-99) mg/dL POC Glucose (mg/dL) 116 H 125 H 134 H (70-110) mg/dL Calcium (8.4-10.2) mg/dL AST (17-59) U/L Total Protein (6.3-8.2) g/dL Albumin (3.5-5.0) g/dL 10/05/21 10/05/21 10/05/21 Range/Units 06:03 06:03 06:45 RBC 2.14 L (4.30-5.90) m/uL Hgb 6.7 L* (13.0-17.5) gm/dL Hct 20.2 L (39.0-53.0) % Plt Count 142 L (150-450) k/uL Sodium 133 L (137-145) mmol/L BUN 30 H (9-20) mg/dL Glucose 112 H (74-99) mg/dL POC Glucose (mg/dL) 144 H (70-110) mg/dL Calcium 7.9 L (8.4-10.2) mg/dL AST 66 H (17-59) U/L Total Protein 4.8 L (6.3-8.2) g/dL Albumin 2.9 L (3.5-5.0) g/dL
--- NOTE | 2021-10-05 10:56 | P.PN ---
Subjective Progress Note Date: 10/05/21 Principal diagnosis: Coronary artery disease. Past medical history significant for hypertension, hyperlipidemia, lifetime nonsmoker, prostate cancer, asymptomatic Covid diagnosis in July 2021 as well as positive PCR [id number], both vaccinated and boosted. POD #4 coronary artery bypass grafting 4 vessels, left internal mammary artery to the diagonal artery, greater saphenous vein graft to the left anterior descending artery, radial artery to the obtuse marginal artery, and greater saphenous vein graft to posterior descending artery, endoscopic harvest of the left radial artery, endoscopic harvesting of bilateral greater saphenous veins, ligation of the left atrial appendage with a 35 mm AtriClip, epi-aortic ultrasound, intraoperative transesophageal echocardiogram. Postoperative acute blood loss anemia and thrombocytopenia, expected given hemodilution and cardiopulmonary bypass pump. Urinary retention, somewhat expected given the patient's history of prostate cancer, awaiting surgery. The patient was seen and examined today 10/05/2021 at his bedside in the [facility]. Currently he is sitting up to the bedside chair, is awake, alert, oriented 3 and is in no acute apparent distress. Denies any complaints of pain or shortness of breath at this time. He reports he has been up ambulating in the intensive care unit hallway with standby assistance nursing staff. Oxygen saturation are 96% on room air and he is achieving 1500 mL on his incentive spirometry. Bedside telemetry showing normal sinus rhythm heart rate 94 BPM. He remains hemodynamically stable and is currently on no inotropic pressor support. He did experience some urinary retention yesterday requiring placement of Dueñas catheter. He was also started on Flomax 0.4 mg by mouth d amparo. He has been seen by urology with recommendations for a voiding trial in the a.m., and if he is unable to void he will be discharged home with a Dueñas catheter in place. Urine output in the last 8 hours is 410 mL. Laboratory results this morning show a WBC count of 7.2, hemoglobin 6.7, hematocrit 20.2, platelets 142, sodium 133, potassium 4.0, BUN 30, creatinine 1.17, glucose 112, calcium 7.9 and AST 66. Atrial and ventricular epicardial pacemaker wires remain in place and grounded. Objective - Vital Signs Vital signs: Vital Signs Temp 98.5 F 10/05/21 08:00 Pulse 93 10/05/21 10:00 Resp 25 H 10/05/21 10:00 BP 104/57 10/05/21 10:00 Pulse Ox 92 L 10/05/21 10:00 FiO2 50 10/01/21 20:00 Intake & Output 10/04/21 10/05/21 10/05/21 18:59 06:59 18:59 Intake Total 604 500 100 Output Total 1100 790 70 Balance -496 -290 30 Weight 90.1 kg Intake: IV 104 Lactated Ringers 1,000 ml 80 @ 20 mls/hr IV .Q24H [facility] Rx#:[id number] pressure bags 24 Oral 500 500 100 Output: Chest Tube Drainage 20 mediastinal 20 Urine 1080 790 70 Other: Voiding Method Indwelling Catheter Indwelling Catheter Indwelling Catheter ABP, PAP, CO, CI - Last Documented Arterial Blood Pressure 94/58 Pulmonary Artery Pressure 32/12 Cardiac Output 6.2 Cardiac Index 3.1 - Exam CONSTITUTIONAL: Sitting up to the bedside chair in the intensive care unit, appears comfortable, cooperative, no apparent acute distress. HEENT: Neck is supple, no JVD, no lymphadenopathy. RESPIRATORY: Lungs sounds essentially clear throughout, diminished to his bilateral bases. Respirations are symmetrical and nonlabored. Currently on 2 L nasal cannula with oxygen saturations 94%. Able to achieve 1500 mL on his incentive spirometry. Weak cough. CARDIOVASCULAR: Regular rhythm and tachycardic rate. S1 and S2 present, negative for S3, gallop or murmur. Sternum is stable. Palpable peripheral pulses bilaterally, no edema to his bilateral lower extremities. No calf pain or tenderness noted. Heart hugger in place with patient demonstrating appropriate use. Knee-high KAILASH hose and sequential compression devices in place to his bilateral lower extremities. Bedside telemetry showing normal sinus rhythm heart rate 94 BPM. GASTROINTESTINAL: Abdomen soft, nontender, nondistended. Active bowel sounds present 4 quadrants. Tolerating diet. Passing flatus. No guarding or rigidity. GENITOURINARY: Dueñas catheter in place for accurate I's and O's and urine retention. Urine Output 410 mL in the last 8 hours. INTEGUMENTARY: Skin is warm and dry with no evidence of clubbing or cyanosis. Midline sternal incision clean dry and well approximated, covered with dry i ntact dressing. Left and right lower extremity EVH sites well approximated without redness or drainage. Left arm radial artery harvest sites clean, dry and approximated. No drainage or redness is present. NEUROLOGIC: Cranial nerves II through XII intact. No focal deficits. MUSKULOSKELETAL: Able to move all extremities, strength equal bilaterally, generalized weakness. PSYCHIATRIC: Alert and oriented to person place and time, appropriate affect, intact judgment and insight. INVASIVE LINES AND TUBES: Atrial and ventricular epicardial pacemaker wires present, and are grounded. - Allied health notes Allied health notes reviewed: nursing - Labs CBC & Chem 7: 10/05/21 06:03 10/05/21 06:03 Labs: Abnormal Lab Results - Last 24 Hours (Table) 10/04/21 10/04/21 10/04/21 Range/Units 11:45 16:35 20:34 RBC (4.30-5.90) m/uL Hgb (13.0-17.5) gm/dL Hct (39.0-53.0) % Plt Count (150-450) k/uL Sodium (137-145) mmol/L BUN (9-20) mg/dL Glucose (74-99) mg/dL POC Glucose (mg/dL) 116 H 125 H 134 H (70-110) mg/dL Calcium (8.4-10.2) mg/dL AST (17-59) U/L Total Protein (6.3-8.2) g/dL Albumin (3.5-5.0) g/dL 10/05/21 10/05/21 10/05/21 Range/Units 06:03 06:03 06:45 RBC 2.14 L (4.30-5.90) m/uL Hgb 6.7 L* (13.0-17.5) gm/dL Hct 20.2 L (39.0-53.0) % Plt Count 142 L (150-450) k/uL Sodium 133 L (137-145) mmol/L BUN 30 H (9-20) mg/dL Glucose 112 H (74-99) mg/dL POC Glucose (mg/dL) 144 H (70-110) mg/dL Calcium 7.9 L (8.4-10.2) mg/dL AST 66 H (17-59) U/L Total Protein 4.8 L (6.3-8.2) g/dL Albumin 2.9 L (3.5-5.0) g/dL - Imaging and Cardiology Chest x-ray: report reviewed, image reviewed Assessment and Plan Assessment: 1. Coronary artery disease, status post four-vessel CABG 2. History of hypertension 3. Hyperlipidemia, treated 4. Lifetime nonsmoker, preoperative FEV1 90% of predicted 5. Prostate cancer, awaiting future prostatectomy, postoperative urinary retention, possibly secondary to his prostate cancer 6. Asymptomatic Covid diagnosis in July 2021 as well as positive PCR [id number], both vaccinated and boosted 7. Postoperative acute blood loss anemia and thrombocytopenia, expected Plan: 1. Continue aspirin, statin, Plavix, beta adriane. We will increase metoprolol as tolerated. 2. Wean O2 as tolerated. Encourage incentive spirometry is 10 times every hour while awake. Bronchodilators per pulmonology/critical care medicine. Patient needs strong encouragement for pulmonary toileting 3. Increase activity as tolerated. PT/OT/cardiac rehab following. 4. Will monitor daily labs and chest x-rays. Electrolyte replacement per protocol. 5. Insulin management per primary care service. Patient is not a diabetic, preoperative hemoglobin A1c 5.9%. 6. Pain control with current medication regimen. 7. Atrial and ventricular epicardial pacemaker wires were removed today at 10 AM. He will be on bed rest for 1 hour post pacemaker wire removal. 8. Urology consult noted and appreciated. The Dueñas catheter will remain in place until tomorrow morning, we will remove his Dueñas catheter at 6 AM and give him a voiding trial. If the patient is unable to void we will replace the catheter and discharge him home with the Dueñas catheter in place. 9. Continue to record accurate intake and output. 10. GI/DVT prophylaxis. 11. Discontinue Cardizem 30 mg by mouth every 6 hours, and start Cardizem CD 120 mg by mouth daily for radial artery spasm prophylaxis. 12. Continue Flomax 0.4 mg by mouth daily at bedtime for urine retention. 14. Discharge planning is in place, anticipate discharge home with home health care in the next 24 hours. 15. More recommendations to follow based on patient's clinical course. Time with Patient: Greater than 30
[2021-10-05 11:26] LABS: Glucose,Whole Blood 132 mg/dL (70-110)
[2021-10-05] MEDS: DILTIAZEM CD 120 MG CAP.ER.24H PO SCH (12:58)
--- NOTE | 2021-10-05 13:38 | P.PN ---
Subjective Progress Note Date: 10/05/21 CAD status post coronary artery bypass grafting This a very pleasant 71-year-old male patient with a known history of prostate cancer, hypertension, hyperlipidemia, previous COVID-19 diagnosis in July 2021 and a positive PCR 09/25/2021. The patient has been vaccinated and boosted. He was found to have significant coronary artery disease and presented here yesterday for an elective coronary artery bypass grafting. He did receive a MARSH to the diagonal, saphenous vein grafts to the LAD, posterior descending artery and radial artery to the obtuse marginal artery. He was successfully extubated at 20:20 last night. He has lactated Ringer's at 50 MLS per hour. Norepinephrine at 0.04 mcg/kg/m. Iinsulin at 2 units per hour. Chest x-ray does reveal worsening left greater than right basilar atelectasis. No evidence of pneumothorax. Bilateral and mediastinal chest tubes in place. Appendectomy is status post 2 units of packed red blood cells infusion. Current hemoglobin 7.7. Platelet count 118. White count 10.3. Sodium 138. Potassium 4.1. BUN 18. Creatinine 0.91. Glucose 132. AST 50. ALT 14. Albumin 3.1. He did receive albumin replacement. He is afebrile. Mean arterial pressure 65. PA pressure 20/8. CVP 5. Cardiac output 6.2. Cardiac index 3.1. He remains on bronchodila tors. Working with the incentive spirometer. Heparin for DVT prophylaxis. Currently in a -725 ML balance. The patient is seen today 10/03/2021 in follow-up in the intensive care unit. He is currently sitting up in a chair at the bedside. Awake and alert in no acute distress. He is maintaining good O2 saturations in the 90s on 3 L/m per nasal cannula. Lactated Ringer's at 20 ML's per hour. Chest x-ray reveals bilateral chest tubes and mediastinal chest tubes in place. No evidence of pne umothorax.Significant pleural effusions. Some atelectasis noted. He continues to work well with the incentive spirometer. He is status post 2 units of packed red blood cells. One pooled cryoprecipitate. Current hemoglobin 7.0. Platelets 87,000. White count 9.9. Sodium 134. Potassium 4.0. BUN 26. Creatinine 1.04. Glucose 126. AST 99. ALT 17. He did receive albumin this morning. He remains on bronchodilators. Heparin for DVT prophylaxis. The patient is seen today 10/04/2021 in follow-up in the intensive care unit. Postoperative day #3. He is awake and alert in no acute distress. He is maintaining good O2 saturations in the 90s on 2 L/m per nasal cannula. He sitting up in a chair at the bedside. No IV fluids. Chest x-ray remains stable. Bibasilar opacities remain. Right-sided chest tube has been removed. No evidence of pneumothorax. Left basilar chest remains in place. Mediastinal tubes have been removed. Right IJ sheath in place. He received 2 units of packed red blood cells admission. 1 pooled cryoprecipitate. Current hemoglobin 6.6. Platelets 117. White count 9.8. Sodium 132. Potassium 3.8. BUN 28. Creatinine 1.07. AST 80. ALT 24. Glucose 132. Melena positive. 177 ML balance. He remains on bronchodilators. Heparin for DVT prophylaxis. 7 82,022, the patient is postop day #4. The patient has undergone elective coronary artery bypass surgery and the patient is doing well, extubated, hemodynamically stable at this point in time. The patient is using incentive spirometer and the patient is pulling approximately 1.5 L on his incentive spirometer. Surgical wound site is dry clean and intact. The patient has no issues with pain. Cardiac rhythm is sinus. The patient is currently on no pressors. Hillman catheter is in place. His been expressing some episodic urinary retention and urology on the case and the patient was started on Flomax. The patient has no other complaints otherwise. His 8 children ventricular epicardial pacemaker wires remain in place and there grounded. On today's evaluation, the white cell count is at 7.2 with a hemoglobin 6.7 and there are no plans to transfuse the patient. Sodium is at 133 with a potassium of 4 and a creatinine of 1.1 with a calcium level of 7.9. No altered mentation. The pa tient is moving all 4 extremities without any limitation. Objective - Vital Signs Vital signs: Vital Signs Temp 98.5 F 10/05/21 08:00 Pulse 99 10/05/21 09:00 Resp 22 10/05/21 09:00 BP 133/62 10/05/21 09:00 Pulse Ox 96 10/05/21 09:00 FiO2 50 10/01/21 20:00 Intake & Output 10/04/21 10/05/21 10/05/21 18:59 06:59 18:59 Intake Total 604 500 100 Output Total 1100 790 10 Balance -496 -290 90 Weight 90.1 kg Intake: IV 104 Lactated Ringers 1,000 ml 80 @ 20 mls/hr IV .Q24H [facility] Rx#:[id number] pressure bags 24 Oral 500 500 100 Output: Chest Tube Drainage 20 mediastinal 20 Urine 1080 790 10 Other: Voiding Method Indwelling Catheter Indwelling Catheter Indwelling Catheter ABP, PAP, CO, CI - Last Documented Arterial Blood Pressure 94/58 Pulmonary Artery Pressure 32/12 Cardiac Output 6.2 Cardiac Index 3.1 - Exam GENERAL EXAM: Alert, very pleasant 71-year-old male patient, on room air oxygen fairly comfortable in no apparent distress. HEAD: Normocephalic. EYES: Normal reaction of pupils, equal size. NOSE: Clear with pink turbinates. THROAT: No erythema or exudates. NECK: Right IJ cordis remains. No masses, no JVD. CHEST: Sternum stable, heart hugger in place. LUNGS: Equal air entry with crackles in the bilateral bases. CVS: S1 and S2 normal with no audible murmur, regular rhythm. ABDOMEN: No hepatosplenomegaly, normal bowel sounds, no guarding or rigidity. SPINE: No scoliosis or deformity SKIN: No rashes CENTRAL NERVOUS SYSTEM: No focal deficits, tone is normal in all 4 extremities. EXTREMITIES: There is 1-2+ peripheral edema. No clubbing, no cyanosis. Peripheral pulses are intact. - Labs CBC & Chem 7: 10/05/21 06:03 10/05/21 06:03 Labs: Abnormal Lab Results - Last 24 Hours (Table) 10/04/21 10/04/21 10/04/21 Range/Units 11:45 16:35 20:34 RBC (4.30-5.90) m/uL Hgb (13.0-17.5) gm/dL Hct (39.0-53.0) % Plt Count (150-450) k/uL Sodium (137-145) mmol/L BUN (9-20) mg/dL Glucose (74-99) mg/dL POC Glucose (mg/dL) 116 H 125 H 134 H (70-110) mg/dL Calcium (8.4-10.2) mg/dL AST (17-59) U/L Total Protein (6.3-8.2) g/dL Albumin (3.5-5.0) g/dL 10/05/21 10/05/21 10/05/21 Range/Units 06:03 06:03 06:45 RBC 2.14 L (4.30-5.90) m/uL Hgb 6.7 L* (13.0-17.5) gm/dL Hct 20.2 L (39.0-53.0) % Plt Count 142 L (150-450) k/uL Sodium 133 L (137-145) mmol/L BUN 30 H (9-20) mg/dL Glucose 112 H (74-99) mg/dL POC Glucose (mg/dL) 144 H (70-110) mg/dL Calcium 7.9 L (8.4-10.2) mg/dL AST 66 H (17-59) U/L Total Protein 4.8 L (6.3-8.2) g/dL Albumin 2.9 L (3.5-5.0) g/dL Assessment and Plan Plan: Coronary artery disease status post coronary artery bypass grafting 4 with a MARSH to the diagonal artery, SVG to the LAD, radial artery to the obtuse margina l artery, saphenous vein graft to the posterior descending artery. Postoperative day #4. The patient is hemodynamically stable. The patient's cardiac rhythm is sinus at this point in time. No pressors. Extubated successfully. Post thoracotomy, chest tubes are removed and the patient is currently on room air oxygen and the chest x-ray showing some atelectatic changes in lung bases along with some small bilateral pleural effusions. Hypotension improved and off the norepinephrine Postoperative anemia, expected, received 2 units of packed red blood cells, current hemoglobin 6.7 Hyperlipidemia Hypertension, history of History of prostate cancer, started on flomax and the hillman is place Previous CoVID diagnosis in July 2021, positive PCR on 09/25/2021. He is vaccinated and boosted Plan Continue using incentive spirometer Increase mobility as tolerated Thank you control is adequate for now Wean off FiO2 and the patient is currently on room air oxygen Continue aspirin and Plavix Continue metoprolol and dose will be adjusted The pacemaker epicardial wires to be removed today Flomax 0.4 mg by mouth daily Discontinue the Hillman catheter tomorrow and monitor his progress very closely
--- NOTE | 2021-10-05 15:07 | P.PN ---
Subjective Progress Note Date: 10/05/21 HISTORY OF PRESENT ILLNESS 71-year-old male with past medical history of hypertension, hyperlipidemia and BPH who was diagnosed with prostate cancer was in the process of clearance for prostate surgery, patient was referred for stress test which was positive ended up having a heart catheter on September 25 finding was consistent with occluded mid LAD with severe stenosis of the proximal significant stenosis of the first branch severe stenosis of the RCA and the left circumflex with normal left ventricular size and systolic function. Patient was referred to cardiothoracic surgery was seen and evaluated and schedule an elective surgery for triple to quadruple bypass surgery which was done today successfully patient was placed on mechanical ventilation, had 3 chest tube, was mildly hyperglycemic place on insulin drip, blood pressure and pulse rate reasonably controlled patient does not seem in any pain currently sedated on mechanical ventilation. 10/02: Patient is seen today in the intensive care unit, successfully extubated last evening, resting in recliner. Right-sided Cordis, chest tube Dueñas catheter remain in place. Patient states his pain is not too bad as long as he does not move. He is scheduled for 1 unit packed RBC transfusion today. He is on insulin drip at 2 units per hour and will be transitioned to scale insulin. Patient is also on norepinephrine. His been afebrile, heart rate 111, blood pressure 111/43, pulse ox 93% on 2 L nasal cannula. Capillary blood glucose running between 112 and 138. WBC 10.3, hemoglobin 7.2, platelet count 118. Cre atinine 0.9. 10/05: Patient remains in the intensive care unit. He is seen today lying in bed. He appears to be comfortable. Chest tubes, Cordis, Dueñas catheter have all been removed but unfortunately Dueñas catheter had to be replaced due to retention. Patient was started on Flomax 0.4 mg daily and seen by urology for voiding trial today. Pacemaker wires remain in place. Patient has been doing well with ambulation. He is reaching 1500 mL on incentive spirometry. Patient denies any concerns. No significant chest pain discomfort, no shortness of breath REVIEW OF SYSTEMS Constitutional: No fever, no chills, no night sweats. EENT: No headache. No blurred vision or double vision, no loss of vision. No loss of Hearing, no ringing in the ears, no dizziness. No nasal drainage or congestion. No epistaxis. No sore throat. Lungs: No shortness of breath, no hypoxia. Denies cough. Cardiovascular: post bypass surgery, been watch and monitor and storage bin tender with no major arrhythmia. Abdominal: No abdominal pain. No nausea, vomiting. No diarrhea. No constipation. No bloody or tarry stools.. No loss of appetite. Genitourinary: No dysuria, increased frequency, urgency. Reported urinary retention. Musculoskeletal: No myalgias. No muscle weakness, no gait dysfunction, no frequent falls. No back pain. No neck pain. Integumentary: No wounds, no lesions. No rash or pruritus. No unusual bruising. No change in hair or nails. Neurologic: he is sedated on mechanical ventilation. Psychiatric: patient is sedated not respond currently. Endocrine: hyperglycemia on insulin pump. PHYSICAL EXAMINATION Gen: This is well-developed 71-year-old male, resting in the ICU bed, appears to be comfortable. No respiratory distress noted. HEENT: Head is atraumatic, normocephalic. Pupils equal, round. Sclerae is anicteric. NECK: Supple. No JVD. No lymphadenopathy. No thyromegaly. LUNGS: decreased breath sound bilaterally. HEART: Regular rate and rhythm. No murmur. ABDOMEN: Soft. Bowel sounds are present. No masses. No tenderness. EXTREMITIES: No pedal edema. No calf tenderness. NEUROLOGICAL: he is awake alert and oriented 3, no neuro deficits. ASSESSMENT AND PLAN - post quadruple bypass surgery. Continue current management per cardiothoracic team. - Multiple vessel CAD finding via abnormal stress test and heart catheter patient has no left ventricle damage or lack of function. We'll continue medical management. - Post surgery acute respiratory failure, successfully extubated, expected with surgery. - Hypertension and is able to go get the drugs. - Hyperlipidemia: Continue atorvastatin 40 mg daily. - Hyperglycemia: Continue insulin drip keep his blood sugar less than 120. - Mild anemia: Mostly iron deficient and within expected post surgery no need for blood transfusion currently. - GI prophylaxis: Protonix 40 mg daily. - DVT prophylaxis: Remain on heparin subcutaneous. CODE STATUS: Full code. Impression and plan of care have been directed as dictated by the signing physician. Jaycee Rm nurse practitioner acting as scribe for signing physician. Objective - Vital Signs Vital signs: Vital Signs Temp 98.5 F 10/05/21 08:00 Pulse 99 10/05/21 09:00 Resp 22 10/05/21 09:00 BP 133/62 10/05/21 09:00 Pulse Ox 96 10/05/21 09:00 FiO2 50 10/01/21 20:00 Intake & Output 10/04/21 10/05/21 10/05/21 18:59 06:59 18:59 Intake Total 604 500 100 Output Total 1100 790 10 Balance -496 -290 90 Weight 90.1 kg Intake: IV 104 Lactated Ringers 1,000 ml 80 @ 20 mls/hr IV .Q24H [facility] Rx#:[id number] pressure bags 24 Oral 500 500 100 Output: Chest Tube Drainage 20 mediastinal 20 Urine 1080 790 10 Other: Voiding Method Indwelling Catheter Indwelling Catheter ABP, PAP, CO, CI - Last Documented Arterial Blood Pressure 94/58 Pulmonary Artery Pressure 32/12 Cardiac Output 6.2 Cardiac Index 3.1 - Labs CBC & Chem 7: 10/05/21 06:03 10/05/21 06:03 Labs: Abnormal Lab Results - Last 24 Hours (Table) 10/04/21 10/04/21 10/04/21 Range/Units 11:45 16:35 20:34 RBC (4.30-5.90) m/uL Hgb (13.0-17.5) gm/dL Hct (39.0-53.0) % Plt Count (150-450) k/uL Sodium (137-145) mmol/L BUN (9-20) mg/dL Glucose (74-99) mg/dL POC Glucose (mg/dL) 116 H 125 H 134 H (70-110) mg/dL Calcium (8.4-10.2) mg/dL AST (17-59) U/L Total Protein (6.3-8.2) g/dL Albumin (3.5-5.0) g/dL 10/05/21 10/05/21 10/05/21 Range/Units 06:03 06:03 06:45 RBC 2.14 L (4.30-5.90) m/uL Hgb 6.7 L* (13.0-17.5) gm/dL Hct 20.2 L (39.0-53.0) % Plt Count 142 L (150-450) k/uL Sodium 133 L (137-145) mmol/L BUN 30 H (9-20) mg/dL Glucose 112 H (74-99) mg/dL POC Glucose (mg/dL) 144 H (70-110) mg/dL Calcium 7.9 L (8.4-10.2) mg/dL AST 66 H (17-59) U/L Total Protein 4.8 L (6.3-8.2) g/dL Albumin 2.9 L (3.5-5.0) g/dL
[2021-10-05 17:11] LABS: Glucose,Whole Blood 124 mg/dL (70-110)
[2021-10-05] MEDS: TAMSULOSIN 0.4 MG CAP.ER.24H PO SCH (18:55)
[2021-10-05 20:16] LABS: Glucose,Whole Blood 165 mg/dL (70-110)
[2021-10-05] MEDS: SENNOSIDES-DOCUSATE SODIUM 1 EACH TAB PO SCH (20:39)
[2021-10-06] MEDS: HEPARIN SODIUM,PORCINE/PF 5,000 UNIT/0.5 ML SYRINGE SQ SCH ×2 (00:10→07:53)
[2021-10-06 06:17] LABS: HCT 22.3 % (39.0-53.0); HGB 7.2 gm/dL (13.0-17.5); MCH 30.5 pg (25.0-35.0); MCHC 32.3 g/dL (31.0-37.0); MCV 94.3 fL (80.0-100.0); Mean Platelet Volume 8.1; Platelet Count 227 k/uL (150-450); RBC 2.36 m/uL (4.30-5.90); RDW 14.4 % (11.5-15.5); WBC 7.5 k/uL (3.8-10.6)
[2021-10-06 06:35] LABS: Calcium 8.1 mg/dL (8.4-10.2)
[2021-10-06 07:04] LABS: Glucose,Whole Blood 127 mg/dL (70-110)
[2021-10-06] MEDS: PANTOPRAZOLE 40 MG TABLET PO SCH (07:11)
[2021-10-06] MEDS: ASCORBIC ACID 500 MG TAB PO SCH (07:11)
[2021-10-06] MEDS: INSULIN ASPART (NovoLOG) 100 UNIT/ML VIAL SQ SCH (07:11)
[2021-10-06] MEDS: FERROUS SULFATE 325 MG TAB PO SCH (07:11)
--- NOTE | 2021-10-06 07:14 | XR ---
EXAMINATION TYPE: XR chest 2V DATE OF EXAM: 10/06/2021 COMPARISON: 01/05/2022 TECHNIQUE: PA and lateral views submitted. HISTORY: Postop cardiac surgery FINDINGS: Postsurgical change. No pneumothorax. Small bilateral effusions. Heart size normal. Bilateral areas o f consolidation are stable. IMPRESSION: 1. Bilateral areas of infiltrate and small effusion stable.
[2021-10-06] MEDS: DILTIAZEM CD 120 MG CAP.ER.24H PO SCH (07:53)
[2021-10-06] MEDS: ATORVASTATIN 40 MG TAB PO SCH (07:53)
[2021-10-06] MEDS: METOPROLOL TARTRATE 25 MG TAB PO SCH (07:53)
[2021-10-06] MEDS: ASPIRIN 325 MG TAB PO SCH (07:53)
[2021-10-06] MEDS: CLOPIDOGREL 75 MG TAB PO SCH (07:53)
[2021-10-06] MEDS: IPRATROPIUM-ALBUTEROL 3 ML NEB INHALATION SCH ×2 (08:01→11:40)
[2021-10-06] MEDS ORDERED: FUROSEMIDE 10 MG/ML 2 ML VIAL IV ONE (08:28)
[2021-10-06] MEDS ORDERED: POTASSIUM CHLORIDE ER 10 MEQ TAB.ER.PRT PO STA (08:28)
--- NOTE | 2021-10-06 09:45 | P.PN ---
Subjective Progress Note Date: 10/06/21 The patient is a 71-year-old male who underwent CABG 4. Postoperative complications include anemia. Chest x-ray this morning shows bilateral areas of infiltrate and small effusion. The patient was interviewed and examined sitting in the recliner chair. He states he did well overnight and has no current complaints, other than lack of sleep. No chest pain or chest pressure. No difficulty breathing or orthopnea. No dizziness or lightheadedness. GENERAL: Well-appearing, well-nourished and in no acute distress. NECK: Supple without JVD or thyromegaly. LUNGS: Breath sounds clear to auscultation bilaterally. Respiration equal and unlabored. No wheezes, rales or rhonchi. HEART: Regular rate and rhythm. Systolic murmur. No rubs or gallops. S1 and S2 heard. Sternal incision clean, dry, and intact. EXTREMITIES: Normal range of motion, no edema. No clubbing or cyanosis. Peripheral pulses intact and strong. Left radial site healing VITALS: Blood pressure 124/56, respiratory rate 24, pulse 101 TELEMETRY: Sinus rhythm to sinus tachycardia with heart rates in the 90s. LABS: WBC 7.5, hemoglobin 7.2, hematocrit 22.3, platelet 227, sodium 136, potassium 4.0, BUN 20, creatinine 1.1, AST 63, ALT 30 IMPRESSION: Multivessel coronary artery disease Status post CABG 4 Postoperative anemia, hemoglobin 6.7 History of hypertension History of dyslipidemia PLAN: Continue supportive treatment Continue aggressive pulmonary hygiene Further recommendations to be based upon clinical course I am dictating on behalf of Dr Paulie Woods's history/physical and assessment/plan. Objective - Vital Signs Vital signs: Vital Signs Temp 97.4 F L 10/06/21 04:00 Pulse 92 10/06/21 08:10 Resp 24 10/06/21 06:00 BP 124/56 10/06/21 06:00 Pulse Ox 94 L 10/05/21 16:00 FiO2 50 10/01/21 20:00 Intake & Output 10/05/21 10/06/21 10/06/21 18:59 06:59 18:59 Intake Total 440 700 600 Output Total 650 690 400 Balance -210 10 200 Weight 90 kg Intake: Oral 440 700 600 Output: Urine 650 690 400 Other: Voiding Method Indwelling Catheter Indwelling Catheter ABP, PAP, CO, CI - Last Documented Arterial Blood Pressure 94/58 Pulmonary Artery Pressure 32/12 Cardiac Output 6.2 Cardiac Index 3.1 - Labs CBC & Chem 7: 10/06/21 05:42 10/06/21 05:42 Labs: Abnormal Lab Results - Last 24 Hours (Table) 10/05/21 10/05/21 10/05/21 Range/Units 11:24 17:10 20:14 RBC (4.30-5.90) m/uL Hgb (13.0-17.5) gm/dL Hct (39.0-53.0) % Sodium (137-145) mmol/L BUN (9-20) mg/dL Glucose (74-99) mg/dL POC Glucose (mg/dL) 132 H 124 H 165 H (70-110) mg/dL Calcium (8.4-10.2) mg/dL AST (17-59) U/L 10/06/21 10/06/21 10/06/21 Range/Units 05:42 05:42 07:02 RBC 2.36 L (4.30-5.90) m/uL Hgb 7.2 L (13.0-17.5) gm/dL Hct 22.3 L (39.0-53.0) % Sodium 136 L (137-145) mmol/L BUN 28 H (9-20) mg/dL Glucose 111 H (74-99) mg/dL POC Glucose (mg/dL) 127 H (70-110) mg/dL Calcium 8.1 L (8.4-10.2) mg/dL AST 63 H (17-59) U/L
--- NOTE | 2021-10-06 09:54 | P.PN ---
Subjective Progress Note Date: 10/06/21 HISTORY OF PRESENT ILLNESS 71-year-old male with past medical history of hypertension, hyperlipidemia and BPH who was diagnosed with prostate cancer was in the process of clearance for prostate surgery, patient was referred for stress test which was positive ended up having a heart catheter on September 25 finding was consistent with occluded mid LAD with severe stenosis of the proximal significant stenosis of the first branch severe stenosis of the RCA and the left circumflex with normal left ventricular size and systolic function. Patient was referred to cardiothoracic surgery was seen and evaluated and schedule an elective surgery for triple to quadruple bypass surgery which was done today successfully patient was placed on mechanical ventilation, had 3 chest tube, was mildly hyperglycemic place on insulin drip, blood pressure and pulse rate reasonably controlled patient does not seem in any pain currently sedated on mechanical ventilation. 10/02: Patient is seen today in the intensive care unit, successfully extubated last evening, resting in recliner. Right-sided Cordis, chest tube Dueñas catheter remain in place. Patient states his pain is not too bad as long as he does not move. He is scheduled for 1 unit packed RBC transfusion today. He is on insulin drip at 2 units per hour and will be transitioned to scale insulin. Patient is also on norepinephrine. His been afebrile, heart rate 111, blood pressure 111/43, pulse ox 93% on 2 L nasal cannula. Capillary blood glucose running between 112 and 138. WBC 10.3, hemoglobin 7.2, platelet count 118. Creatinine 0.9. 10/05: Patient remains in the intensive care unit. He is seen today lying in bed. He appears to be comfortable. Chest tubes, Cordis, Dueñas catheter have all been removed but unfortunately Dueñas catheter had to be replaced due to retention. Patient was started on Flomax 0.4 mg daily and seen by urology for voiding trial today. Pacemaker wires remain in place. Patient has been doing well with ambulation. He is reaching 1500 mL on incentive spirometry. Patient denies any concerns. No significant chest pain discomfort, no shortness of breath. 10/06: Patient is sitting in a chair today, has been doing very well, his pacer wire were taking out yesterday, patient is more active. Final medication were changed today, his catheter was out patient was able to void on his own. Patient is stable medically and hopefully will be discharged home today. REVIEW OF SYSTEMS Constitutional: No fever, no chills, no night sweats. EENT: No headache. No blurred vision or double vision, no loss of vision. No loss of Hearing, no ringing in the ears, no dizziness. No nasal drainage or congestion. No epistaxis. No sore throat. Lungs: No shortness of breath, no hypoxia. Denies cough. Cardiovascular: post bypass surgery, been watch and secured entrance monitor with no major arrhythmia. Abdominal: No abdominal pain. No nausea, vomiting. No diarrhea. No consti pation. No bloody or tarry stools.. No loss of appetite. Genitourinary: No dysuria, increased frequency, urgency. Reported urinary retention. Musculoskeletal: No myalgias. No muscle weakness, no gait dysfunction, no frequent falls. No back pain. No neck pain. Integumentary: No wounds, no lesions. No rash or pruritus. No unusual bruising. No change in hair or nails. Neurologic: he is sedated on mechanical ventilation. Psychiatric: patient is sedated not respond currently. Endocrine: hyperglycemia on insulin pump. PHYSICAL EXAMINATION Gen: This is well-developed 71-year-old male, resting in the ICU bed, appears to be comfortable. No respiratory distress noted. HEENT: Head is atraumatic, normocephalic. Pupils equal, round. Sclerae is anicteric. NECK: Supple. No JVD. No lymphadenopathy. No thyromegaly. LUNGS: decreased breath sound bilaterally. HEART: Regular rate and rhythm. No murmur. ABDOMEN: Soft. Bowel sounds are present. No masses. No tenderness. EXTREMITIES: No pedal edema. No calf tenderness. NEUROLOGICAL: he is awake alert and oriented 3, no neuro deficits. ASSESSMENT AND PLAN - post quadruple bypass surgery. Continue current management per cardiothoracic team. - Multiple vessel CAD finding via abnormal stress test and heart catheter patient has no left ventricle damage or lack of function. We'll continue medical management. - Post surgery acute respiratory failure, successfully extubated, not require any oxygen patient is doing very well. - Hypertension stable on current medication. - Hyperlipidemia: Continue atorvastatin 40 mg daily. - Hyperglycemia: Continue insulin drip keep his blood sugar less than 120. - Mild anemia: Mostly iron deficient and within expected post surgery no need for blood transfusion currently. - GI prophylaxis: Protonix 40 mg daily. - DVT prophylaxis: Remain on heparin subcutaneous. CODE STATUS: Full code. Planning: Hopefully patient be discharged home today with follow-up with cardiology and primary care in 1 week. Objective - Vital Signs Vital signs: Vital Signs Temp 97.4 F L 10/06/21 04:00 Pulse 101 H 10/06/21 06:00 Resp 24 10/06/21 06:00 BP 124/56 10/06/21 06:00 Pulse Ox 94 L 10/05/21 16:00 FiO2 50 10/01/21 20:00 Intake & Output 10/05/21 10/06/21 10/06/21 18:59 06:59 18:59 Intake Total 440 700 Output Total 650 690 Balance -210 10 Weight 90 kg Intake: Oral 440 700 Output: Urine 650 690 Other: Voiding Method Indwelling Catheter Indwelling Catheter ABP, PAP, CO, CI - Last Documented Arterial Blood Pressure 94/58 Pulmonary Artery Pressure 32/12 Cardiac Output 6.2 Cardiac Index 3.1 - Labs CBC & Chem 7: 10/06/21 05:42 10/06/21 05:42 Labs: Abnormal Lab Results - Last 24 Hours (Table) 10/05/21 10/05/21 10/05/21 Range/Units 11:24 17:10 20:14 RBC (4.30-5.90) m/uL Hgb (13.0-17.5) gm/dL Hct (39.0-53.0) % Sodium (137-145) mmol/L BUN (9-20) mg/dL Glucose (74-99) mg/dL POC Glucose (mg/dL) 132 H 124 H 165 H (70-110) mg/dL Calcium (8.4-10.2) mg/dL AST (17-59) U/L 10/06/21 10/06/21 10/06/21 Range/Units 05:42 05:42 07:02 RBC 2.36 L (4.30-5.90) m/uL Hgb 7.2 L (13.0-17.5) gm/dL Hct 22.3 L (39.0-53.0) % Sodium 136 L (137-145) mmol/L BUN 28 H (9-20) mg/dL Glucose 111 H (74-99) mg/dL POC Glucose (mg/dL) 127 H (70-110) mg/dL Calcium 8.1 L (8.4-10.2) mg/dL AST 63 H (17-59) U/L
[2021-10-06 10:40] VITALS: BP 118/72; PULSE 97; RESP 19; TEMP 98.2
--- NOTE | 2021-10-06 11:27 | P.PN ---
Subjective Progress Note Date: 10/06/21 Principal diagnosis: Coronary artery disease. Past medical history significant for hypertension, hyperlipidemia, lifetime nonsmoker, prostate cancer, asymptomatic Covid diagnosis in July 2021 as well as positive PCR [id number], both vaccinated and boosted. POD #5 coronary artery bypass grafting 4 vessels, left internal mammary artery to the diagonal artery, greater saphenous vein graft to the left anterior descending artery, radial artery to the obtuse marginal artery, and greater saphenous vein graft to posterior descending artery, endoscopic harvest of the left radial artery, endoscopic harvesting of bilateral greater saphenous veins, ligation of the left atrial appendage with a 35 mm AtriClip, epi-aortic ultrasound, intraoperative transesophageal echocardiogram. Postoperative acute blood loss anemia and thrombocytopenia, expected given hemodilution and cardiopulmonary bypass pump. Urinary retention, somewhat expected given the patient's history of prostate cancer, awaiting surgery. The patient was seen and examined in follow-up today 10/06/2021 at his bedside in the intensive care unit. He denies any complaints of pain or shortness of breath at this time. He also denies any complaints of nausea or dizziness. Currently sitting up to the bedside chair, is awake, alert, oriented 3 and is in no acute distress. He remains hemodynamically stable and is currently on no inotropic pressor support. Transfer orders were placed to the cardiac stepdown unit yesterday, although due to lack of bed availability he was kept in the intensive care unit. His atrial and ventricular epicardial pacemaker wires removed yesterday without incident. The patient was seen by Dr. Astorga from urology yesterday due to some urinary retention requiring placement of Dueñas catheter. His Dueñas catheter was removed early this morning around 6 AM and he has since voided over 400 mL of urine. Bedside telemetry is showing normal sinus rhythm heart rate 87 BPM. He's been afebrile the last 24 hours. Discharge planning is in place and he is anticipated to be discharged home with home health care today. Objective - Vital Signs Vital signs: Vital Signs Temp 98.2 F 10/06/21 08:00 Pulse 97 10/06/21 10:00 Resp 19 10/06/21 10:00 BP 118/72 10/06/21 08:00 Pulse Ox 95 10/06/21 08:00 FiO2 50 10/01/21 20:00 Intake & Output 10/05/21 10/06/21 10/06/21 18:59 06:59 18:59 Intake Total 440 700 600 Output Total 702 306 0124 Balance -210 10 -500 Weight 90 kg Intake: Oral 440 700 600 Output: Urine 063 101 9326 Other: Voiding Method Indwelling Catheter Indwelling Catheter ABP, PAP, CO, CI - Last Documented Arterial Blood Pressure 94/58 Pulmonary Artery Pressure 32/12 Cardiac Output 6.2 Cardiac Index 3.1 - Exam CONSTITUTIONAL: Sitting up to the bedside chair in the intensive care unit, appears comfortable, cooperative, no apparent acute distress. HEENT: Neck is supple, no JVD, no lymphadenopathy. RESPIRATORY: Lungs sounds essentially clear throughout, diminished to his bilateral bases, with few scattered crackles. Respirations are symmetrical and nonlabored. Currently on room air with oxygen saturations 96%. Able to achieve 7590-4082 mL on his incentive spirometry. Strong cough. CARDIOVASCULAR: Regular rhythm and rate. S1 and S2 present, negative for S3, gallop or murmur. Sternum is stable. Palpable peripheral pulses bilaterally, no edema to his bilateral lower extremities. No calf pain or tenderness noted. Heart hugger in place with patient demonstrating appropriate use. Knee-high KAILASH hose and sequential compression devices in place to his bilateral lower extremities. Bedside telemetry showing normal sinus rhythm heart rate 87 BPM. GASTROINTESTINAL: Abdomen soft, nontender, nondistended. Active bowel sounds present 4 quadrants. Tolerating diet. Passing flatus. No guarding or rigidity. Bowel movement yesterday 10/05/2021. GENITOURINARY: Dueñas catheter was removed this a.m, he has since voided 1100 mL of urine. INTEGUMENTARY: Skin is warm and dry with no evidence of clubbing or cyanosis. Midline sternal incision clean dry and well approximated, covered with dry intact dressing. Left and right lower extremity EVH sites well approximated without redness or drainage. Left arm radial artery harvest sites clean, dry and approximated. No drainage or redness is present. NEUROLOGIC: Cranial nerves II through XII intact. No focal deficits. MUSKULOSKELETAL: Able to move all extremities, strength equal bilaterally, generalized weakness. PSYCHIATRIC: Alert and oriented to person place and time, appropriate affect, intact judgment and insight. - Allied health notes Allied health notes reviewed: nursing - Labs CBC & Chem 7: 10/06/21 05:42 10/06/21 05:42 Labs: Abnormal Lab Results - Last 24 Hours (Table) 10/05/21 10/05/21 10/05/21 Range/Units 11:24 17:10 20:14 RBC (4.30-5.90) m/uL Hgb (13.0-17.5) gm/dL Hct (39.0-53.0) % Sodium (137-145) mmol/L BUN (9-20) mg/dL Glucose (74-99) mg/dL POC Glucose (mg/dL) 132 H 124 H 165 H (70-110) mg/dL Calcium (8.4-10.2) mg/dL AST (17-59) U/L 10/06/21 10/06/21 10/06/21 Range/Units 05:42 05:42 07:02 RBC 2.36 L (4.30-5.90) m/uL Hgb 7.2 L (13.0-17.5) gm/dL Hct 22.3 L (39.0-53.0) % Sodium 136 L (137-145) mmol/L BUN 28 H (9-20) mg/dL Glucose 111 H (74-99) mg/dL POC Glucose (mg/dL) 127 H (70-110) mg/dL Calcium 8.1 L (8.4-10.2) mg/dL AST 63 H (17-59) U/L - Imaging and Cardiology Chest x-ray: report reviewed, image reviewed Assessment and Plan Assessment: 1. Coronary artery disease, status post four-vessel CABG 2. History of hypertension 3. Hyperlipidemia, treated 4. Lifetime nonsmoker, preoperative FEV1 90% of predicted 5. Prostate cancer, awaiting future prostatectomy, postoperative urinary retention, possibly secondary to his prostate cancer, urinary retention has resolved 6. Asymptomatic Covid diagnosis in July 2021 as well as positive PCR [id number], both vaccinated and boosted 7. Postoperative acute blood loss anemia and thrombocytopenia, expected Plan: 1. Continue aspirin, statin, Plavix, beta adriane. We will increase metoprolol as tolerated. 2. Encourage incentive spirometry is 10 times every hour while awake. Bronchodilators per pulmonology/critical care medicine. Patient needs strong encouragement for pulmonary toileting 3. Increase activity as tolerated. PT/OT/cardiac rehab following. 4. Will monitor daily labs and chest x-rays. Electrolyte replacement per protocol. 5. Insulin management per primary care service. Patient is not a diabetic, preoperative hemoglobin A1c 5.9%. 6. Pain control with current medication regimen. 7. Lasix 20 mg IV 1 now and potassium chloride 10 mEq by mouth 1 now. 8. Urology consult noted and appreciated. Dueñas catheter has been removed and his urine retention has resolved with 1.1 L of urine output since 6 AM this morning. 9. Continue to record accurate intake and output. 10. GI/DVT prophylaxis. 11. Continue Cardizem CD 120 mg by mouth daily for radial artery spasm prophylaxis. 12. Continue Flomax 0.4 mg by mouth daily at bedtime for urine retention. 14. Discharge planning is in place, anticipate discharge home with home health care in the next 24 hours. 15. More recommendations to follow based on patient's clinical course. Time with Patient: Greater than 30
[2021-10-06 12:02] LABS: Glucose,Whole Blood 136 mg/dL (70-110)
--- NOTE | 2021-10-06 12:29 | P.PN ---
Subjective Progress Note Date: 10/06/21 CAD status post coronary artery bypass grafting This a very pleasant 71-year-old male patient with a known history of prostate cancer, hypertension, hyperlipidemia, previous COVID-19 diagnosis in July 2021 and a positive PCR 09/25/2021. The patient has been vaccinated and boosted. He was found to have significant coronary artery disease and presented here yesterday for an elective coronary artery bypass grafting. He did receive a MARSH to the diagonal, saphenous vein grafts to the LAD, posterior descending artery and radial artery to the obtuse marginal artery. He was successfully extubated at 20:20 last night. He has lactated Ringer's at 50 MLS per hour. Norepinephrine at 0.04 mcg/kg/m. Iinsulin at 2 units per hour. Chest x-ray does reveal worsening left greater than right basilar atelectasis. No evidence of pneumothorax. Bilateral and mediastinal chest tubes in place. Appendectomy is status post 2 units of packed red blood cells infusion. Current hemoglobin 7.7. Platelet count 118. White count 10.3. Sodium 138. Potassium 4.1. BUN 18. Creatinine 0.91. Glucose 132. AST 50. ALT 14. Albumin 3.1. He did receive albumin replacement. He is afebrile. Mean arterial pressure 65. PA pressure 20/8. CVP 5. Cardiac output 6.2. Cardiac index 3.1. He remains on bronchodila tors. Working with the incentive spirometer. Heparin for DVT prophylaxis. Currently in a -725 ML balance. The patient is seen today 10/03/2021 in follow-up in the intensive care unit. He is currently sitting up in a chair at the bedside. Awake and alert in no acute distress. He is maintaining good O2 saturations in the 90s on 3 L/m per nasal cannula. Lactated Ringer's at 20 ML's per hour. Chest x-ray reveals bilateral chest tubes and mediastinal chest tubes in place. No evidence of pne umothorax.Significant pleural effusions. Some atelectasis noted. He continues to work well with the incentive spirometer. He is status post 2 units of packed red blood cells. One pooled cryoprecipitate. Current hemoglobin 7.0. Platelets 87,000. White count 9.9. Sodium 134. Potassium 4.0. BUN 26. Creatinine 1.04. Glucose 126. AST 99. ALT 17. He did receive albumin this morning. He remains on bronchodilators. Heparin for DVT prophylaxis. The patient is seen today 10/04/2021 in follow-up in the intensive care unit. Postoperative day #3. He is awake and alert in no acute distress. He is maintaining good O2 saturations in the 90s on 2 L/m per nasal cannula. He sitting up in a chair at the bedside. No IV fluids. Chest x-ray remains stable. Bibasilar opacities remain. Right-sided chest tube has been removed. No evidence of pneumothorax. Left basilar chest remains in place. Mediastinal tubes have been removed. Right IJ sheath in place. He received 2 units of packed red blood cells admission. 1 pooled cryoprecipitate. Current hemoglobin 6.6. Platelets 117. White count 9.8. Sodium 132. Potassium 3.8. BUN 28. Creatinine 1.07. AST 80. ALT 24. Glucose 132. Melena positive. 177 ML balance. He remains on bronchodilators. Heparin for DVT prophylaxis. 7 82,022, the patient is postop day #4. The patient has undergone elective coronary artery bypass surgery and the patient is doing well, extubated, hemodynamically stable at this point in time. The patient is using incentive spirometer and the patient is pulling approximately 1.5 L on his incentive spirometer. Surgical wound site is dry clean and intact. The patient has no issues with pain. Cardiac rhythm is sinus. The patient is currently on no pressors. Hillman catheter is in place. His been expressing some episodic urinary retention and urology on the case and the patient was started on Flomax. The patient has no other complaints otherwise. His 8 children ventricular epicardial pacemaker wires remain in place and there grounded. On today's evaluation, the white cell count is at 7.2 with a hemoglobin 6.7 and there are no plans to transfuse the patient. Sodium is at 133 with a potassium of 4 and a creatinine of 1.1 with a calcium level of 7.9. No altered mentation. The amparo lock is moving all 4 extremities without any limitation. 10/06/2021, the patient is postop day #5. The patient is doing extremely well. The patient has no specific complaints. He is afebrile hemodynamically stable. The patient is currently on room air oxygen. Using incentive spirometer. The p atient was having some issues with urinary retention. The patient was started on Flomax and the patient was able to urinate and the Hillman cath has been removed. Otherwise, the patient is in a normal sinus rhythm. He is hemodynamically stable. The atrial and ventricular epicardial wires have been removed. The patient is producing adequate amount of urine output. Chest x-ray shows some postsurgical changes without any acute abnormalities. Meanwhile, the patient's hemoglobin is at 7.2 with a white cell count of 7.5. He is a 28 with a creatinine of 1.1 and sodium level of 136. Objective - Vital Signs Vital signs: Vital Signs Temp 97.4 F L 10/06/21 04:00 Pulse 92 10/06/21 08:10 Resp 24 10/06/21 06:00 BP 124/56 10/06/21 06:00 Pulse Ox 94 L 10/05/21 16:00 FiO2 50 10/01/21 20:00 Intake & Output 10/05/21 10/06/21 10/06/21 18:59 06:59 18:59 Intake Total 440 700 600 Output Total 650 690 400 Balance -210 10 200 Weight 90 kg Intake: Oral 440 700 600 Output: Urine 650 690 400 Other: Voiding Method Indwelling Catheter Indwelling Catheter ABP, PAP, CO, CI - Last Documented Arterial Blood Pressure 94/58 Pulmonary Artery Pressure 32/12 Cardiac Output 6.2 Cardiac Index 3.1 - Exam CONSTITUTIONAL: Sitting up to the bedside chair in the intensive care unit, appears comfortable, cooperative, no apparent acute distress. HEENT: Neck is supple, no JVD, no lymphadenopathy. RESPIRATORY: Lungs sounds essentially clear throughout, diminished to his bilateral bases, with few scattered crackles. Respirations are symmetrical and nonlabored. Currently on room air with oxygen saturations 96%. Able to achieve 4071-8627 mL on his incentive spirometry. Strong cough. CARDIOVASCULAR: Regular rhythm and rate. S1 and S2 present, negative for S3, gallop or murmur. Sternum is stable. Palpable peripheral pulses bilaterally, no edema to his bilateral lower extremities. No calf pain or tenderness noted. Heart hugger in place with patient demonstrating appropriate use. Knee-high KAILASH hose and sequential compression devices in place to his bilateral lower extremities. Bedside telemetry showing normal sinus rhythm heart rate 87 BPM. GASTROINTESTINAL: Abdomen soft, nontender, nondistended. Active bowel sounds present 4 quadrants. Tolerating diet. Passing flatus. No guarding or ri gidity. Bowel movement yesterday 10/05/2021. GENITOURINARY: Hillman catheter was removed this a.m, he has since voided 1100 mL of urine. INTEGUMENTARY: Skin is warm and dry with no evidence of clubbing or cyanosis. Midline sternal incision clean dry and well approximated, covered with dry intact dressing. Left and right lower extremity EVH sites well approximated without redness or drainage. Left arm radial artery harvest sites clean, dry and approximated. No drainage or redness is present. NEUROLOGIC: Cranial nerves II through XII intact. No focal deficits. MUSKULOSKELETAL: Able to move all extremities, strength equal bilaterally, generalized weakness. PSYCHIATRIC: Alert and oriented to person place and time, appropriate affect, intact judgment and insight. - Labs CBC & Chem 7: 10/06/21 05:42 10/06/21 05:42 Labs: Abnormal Lab Results - Last 24 Hours (Table) 10/05/21 10/05/21 10/05/21 Range/Units 11:24 17:10 20:14 RBC (4.30-5.90) m/uL Hgb (13.0-17.5) gm/dL Hct (39.0-53.0) % Sodium (137-145) mmol/L BUN (9-20) mg/dL Glucose (74-99) mg/dL POC Glucose (mg/dL) 132 H 124 H 165 H (70-110) mg/dL Calcium (8.4-10.2) mg/dL AST (17-59) U/L 10/06/21 10/06/21 10/06/21 Range/Units 05:42 05:42 07:02 RBC 2.36 L (4.30-5.90) m/uL Hgb 7.2 L (13.0-17.5) gm/dL Hct 22.3 L (39.0-53.0) % Sodium 136 L (137-145) mmol/L BUN 28 H (9-20) mg/dL Glucose 111 H (74-99) mg/dL POC Glucose (mg/dL) 127 H (70-110) mg/dL Calcium 8.1 L (8.4-10.2) mg/dL AST 63 H (17-59) U/L Assessment and Plan Plan: Coronary artery disease status post coronary artery bypass grafting 4 with a MARSH to the diagonal artery, SVG to the LAD, radial artery to the obtuse marginal artery, saphenous vein graft to the posterior descending artery. Postoperative day #5. The patient is hemodynamically stable. The patient's cardiac rhythm is sinus at this point in time. No pressors. Extubated successfully. Post thoracotomy, chest tubes are removed and the patient is currently on room air oxygen and the chest x-ray showing some atelectatic changes in lung bases along with some small bilateral pleural effusions. The patient exercises stable. The patient underwent oxygen. Hypotension improved and off the norepinephrine, hemodynamically stable Postoperative anemia, expected, received 2 units of packed red blood cells, current hemoglobin 7.2 and that hemoglobin is stable Hyperlipidemia Hypertension, history of History of prostate cancer, started on flomax and the hillman was removed and the patient was able to void Previous CoVID diagnosis in July 2021, positive PCR on 09/25/2021. He is vaccinated and boosted Plan Continue using incentive spirometer Increase mobility as tolerated Patient is on room air oxygen Patient to be discharged home today Continue aspirin and Plavix Continue metoprolol and dose will be adjusted The pacemaker epicardial wires were removed Keep the Flomax Removed the Hillman catheter and the patient was able to void Clinically and hemodynamically stable and the patient may be able to go home today. His chest x-ray from today was reviewed and shows some postsurgical changes with sternotomy wires in the mid chest area. Atelectatic changes small effusions especially in the right lung base. He continues using incentive spirometer.
--- NOTE | 2021-10-06 13:53 | P.DS ---
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 Coronary artery disease, status post four-vessel CABG 2. History of hypertension 3. Hyperlipidemia, treated 4. Lifetime nonsmoker, preoperative FEV1 90% of predicted 5. Prostate cancer, awaiting future prostatectomy, postoperative urinary retention, possibly secondary to his prostate cancer, urinary retention has resolved 6. Asymptomatic Covid diagnosis in July 2021 as well as positive PCR [id number], both vaccinated and boosted 7. Postoperative acute blood loss anemia and thrombocytopenia, expected PRINCIPAL PROCEDURE: 1. Coronary artery bypass grafting 4 vessels, left internal mammary artery to the diagonal coronary artery, greater saphenous vein graft to the left anterior descending coronary artery, radial artery to the obtuse marginal coronary artery and a greater saphenous vein graft to the posterior descending coronary artery. 2. Endoscopic harvest of the left radial artery. 3. Endoscopic harvesting of the bilateral greater saphenous veins. 4. Ligation of the left atrial appendage with a 35 mm Atriclip. 5. Epi-aortic ultrasound. 6. Intraoperative transesophageal echocardiogram. HISTORY OF PRESENT ILLNESS: This is a 71-year-old gentleman who follows with Dr. James Lyn for his primary care service and Dr. Diaz for his cardiology care. The patient has a history of prostate cancer and was preparing for prostatectomy surgery and needed cardiac clearance. Subsequently, the patient underwent a stress test which was abnormal suggesting stress-induced ischemia involving the inferoapical and septal wall consistent with stress-induced ischemia in the right coronary artery territory. The patient had denied any complaints of chest pain or shortness of breath and reports that he has been very active walking approximately 2 miles per day without any difficulty. Due to the patient's finding on his stress test he underwent a cardiac catheterization which demonstrated a 99% stenosis to his proximal left anterior descending coronary artery, an 80% stenosis to his first diagonal branch, a 70% stenosis to his circumflex coronary artery, and 80% stenosis to his mid right coronary artery and a 90% stenosis to his ostium of his posterior descending coronary artery. Also during heart catheterization the left ventriculogram was completed which showed a normal left ventricular size and function with an ejection fraction of approximately 60% with no gradient across the aortic valve and a left ventricular end-diastolic pressure of 12-16 mmHg. The patient also underwent a transthoracic 2-D echocardiogram in March 2021 which showed a normal left ventricular size and function with an ejection fraction of 65%, no regional wall motion abnormalities, grade 1 diastolic dysfunction and no valvular pathology. Subsequently, due to the findings on the above-mentioned studies a consult was placed to Dr. Alex Driscoll from cardiothoracic surgery for further evaluation and treatment recommendations. The patient and his met with Dr. Driscoll, the above-mentioned studies were discussed with the patient and family member, treatment options including myocardial revascularization surgery were discussed. Risks and benefits of surgery including the STS risk score were discussed and knowing an understanding the risks of myocardial revascularization surgery the patient wished to proceed with the surgical option. HOSPITAL COURSE: The patient was admitted to the hospital on 10/01/2021, after obtaining consent, the patient was taken to the preoperative area, prepared in the usual fashion and subsequently taken to the operating room or Dr. Alex Driscoll performed an elective coronary artery bypass grafting 4 vessels. Upon completion of the surgery the patient was transferred to the cardiovascular intensive care unit where he was recovered and further monitored hemody namically. He was extubated, all lines, tubes and supportive drips were discontinued when appropriate and transfer orders were placed to the cardiac stepdown unit, although due to lack of bed availability on the cardiac stepdown unit he was kept in the intensive care unit until discharge. His oxygen was titrated down, he continued to work with physical and occupational therapy, was tolerating a normal diet, his pain was well-controlled and he was ready to be discharged home on postoperative day #5 with a [facility]. The patient has received written and verbal instructions regarding his medications, activity restrictions, signs and symptoms requiring physician notification and his follow-up appointment. Postoperatively the patient did have some urinary retention requiring placement of a Dueñas catheter. Urology was consulted, his catheter was subsequently discontinued and the patient was able to void without difficulty. Plan - Discharge Summary Discharge Rx Participant: No New Discharge Prescriptions: New Diltiazem Cd [Cardizem CD] 120 mg PO DAILY #30 cap Ferrous Sulfate [Iron (65 MG Elemental)] 325 mg PO BID-W/MEALS #14 tab Atorvastatin [Lipitor] 40 mg PO DAILY #30 tab Clopidogrel [Plavix] 75 mg PO DAILY #30 tab Pantoprazole [Protonix] 40 mg PO AC-BRKFST #30 tab Sennosides-Docusate Sodium [Senokot-S] 2 each PO HS #14 tab Ascorbic Acid [Vitamin C] 500 mg PO BID-W/MEALS #14 tab Aspirin 325 mg PO DAILY #30 tab Tamsulosin [Flomax] 0.4 mg PO PC-SUPPER #30 cap Acetaminophen Tab [Tylenol] 650 mg PO Q4HR PRN tab PRN Reason: Fever and/ or Mild Pain Continue Metoprolol Tartrate [Lopressor] 25 mg PO BID #60 tablet Discontinued Aspirin 81 mg PO DAILY Atorvastatin [Lipitor] 20 mg PO DAILY Lisinopril-Hctz 10-12.5 mg [Zestoretic 10-12.5] 1 tab PO DAILY Discharge Medication List Acetaminophen Tab [Tylenol] 650 mg PO Q4HR PRN tab 10/06/21 [Rx] Ascorbic Acid [Vitamin C] 500 mg PO BID-W/MEALS #14 tab 10/06/21 [Rx] Aspirin 325 mg PO DAILY #30 tab 10/06/21 [Rx] Atorvastatin [Lipitor] 40 mg PO DAILY #30 tab 10/06/21 [Rx] Clopidogrel [Plavix] 75 mg PO DAILY #30 tab 10/06/21 [Rx] Diltiazem Cd [Cardizem CD] 120 mg PO DAILY #30 cap 10/06/21 [Rx] Ferrous Sulfate [Iron (65 MG Elemental)] 325 mg PO BID-W/MEALS #14 tab 10/06/21 [Rx] Metoprolol Tartrate [Lopressor] 25 mg PO BID #60 tablet 10/06/21 [Rx] Pantoprazole [Protonix] 40 mg PO AC-BRKFST #30 tab 10/06/21 [Rx] Sennosides-Docusate Sodium [Senokot-S] 2 each PO HS #14 tab 10/06/21 [Rx] Tamsulosin [Flomax] 0.4 mg PO PC-SUPPER #30 cap 10/06/21 [Rx] Follow up Appointment(s)/Referral(s): Shara Head NPC [Nurse Practitioner] - 10/13/21 11:00 am [facility] [NON-STAFF] - 4 Weeks (You will receive a phone call in approximately 4-6 weeks for evaluation for cardiac rehab) Dimitris Diaz MD [STAFF PHYSICIAN] - 2 Weeks (Dr. Diaz's office will call with a follow-up appointment.) [facility] [[facility]] - ([facility] will call you to arrange a visit. You can call them if needed. ) Alirio Hooker MD [STAFF PHYSICIAN] - 1 Week (Follow-up with Dr. Hooker as needed for urinary retention.) James Lyn MD [Primary Care Provider] - 10/13/21 8:15 am Armen Perdomo DO [Doctor of Osteopathic Medicine] - 10/12/21 9:30 am Alex Driscoll MD [STAFF PHYSICIAN] - 10/30/21 9:30 am () Ambulatory/Diagnostic Orders: Complete Blood Count w/diff [LAB.AMB] Time Frame: 10/09/21, Facility: [facility], Location: [facility] Comprehensive Metabolic Panel [LAB.AMB] Time Frame: 10/09/21, Facility: [facility], Location: [facility] Activity/Diet/Wound Care/Special Instructions: DISCHARGE INSTRUCTIONS: 1. No driving for 4 weeks, or until physician gives their ok. 2. The patient should sleep in their own bed, no medical bed needed. 3. Stairs are not an issue. If the bedroom is upstairs, it is advised that the patient go up at night and down in the morning for the first week. Go slowly, using handrail and take 1 step at a time. 4. KAILASH hose are to be worn for 30 days or until physician discontinues. 5. Heart hugger is to be worn 100% of the time until physician discontinues.(except when showering) 6. No lifting, pushing, or pulling more than 10 pounds for 12 weeks. The physician will advise of any restriction changes. 7. The patient is expected to continue the prescribed walking program. 8. Continue pain control per as needed orders. 9. Continue with incentive spirometry and splinting/heart hugger until otherwise directed by the physician. 10. Must shower daily using liquid antibacterial soap and a separate white washcloth for each individual incision. 11. Routine sternal incision care. No powders, lotions, ointments on incisions. No dressings are necessary on incisions unless they are draining. Dermabond tape is to remain on sternal incision until surgeon follow-up. 12. Please call surgeon/TERRAZZO WORKER HELPER for temp greater than 101 F or purulent drainage from incisions. 13. You should weigh yourself daily, record and bring log with you to follow up appointments. 14. All prescriptions given by surgeon for 30 days. Refills need to be filled through hoist mechanic/primary care physician. 15. A Red armband has been placed on the patient. It should be worn for 30 days post surgery and will be removed by the cardiac surgeons. If an ER visit is necessary, please make sure the number on the Red armband is called. 16. You have been referred to and are expected to begin Cardiac Rehab in approximately 4-6 weeks. HOME HEALTH SERVICES TO PROVIDE: RN SKILLED HOME CARE SERVICES FOR POST-OP SURGICAL PATIENTS WITH THE FOLLOWING: Coronary Artery Bypass Surgery (CABG), Mitral Valve Replacement/Repair ( MVR), Aortic Valve Replacement/Repair (AVR) RN TO CONTINUE EDUCATION FROM ``ROAD TO A HEALTH HEART PATIENT EDUCATION MANUAL (GIVEN TO PATIENT IN THE HOSPITAL) MEDICATION RECONCILIATION WITH EDUCATION NEEDED ON FIRST HOME VISIT EMPHASIZE IMPORTANCE OF WEARING BREAST SUPPORT/HEART HUGGER ENCOURAGE USE OF INCENTIVE SPIROMETER 10 X EVERY HOUR WHILE AWAKE ENCOURAGE UTILIZATION OF LOWER EXTREMITY COMPRESSION STOCKINGS/KAILASH HOSE and ELEVATE LEGS ABOVE LEVEL OF HEART WHILE AT REST. ENCOURAGE AMBULATION 3-5x/day INCREASING TOLERATES, WHILE AVOIDING EXTREMES IN TEMPERATURE FREQUENCY: RN TO OPEN THE PATIENT WITHIN 24 HOURS OF DISCHARGE FROM THE HOSPITAL WITH TELEHEALTH [place] [facility] [place]ISIT 2-3 X A WEEK FOR 4 WEEKS ESTABLISHED BY PATIENT NEEDS. LABORATORY: CBC, CMP TO BE DRAWN ON THE THIRD DAY HOME, (RAN STAT) FAX RESULTS TO [phone]. TELEHEALTH PARAMETERS: WEIGHT: NOTIFY MD OF WEIGHT GAIN OF 2 LBS IN 24 HOURS OR 5 LBS IN ONE WEEK HR: NOTIFY MD OF HR <55 BPM OR HR>100 BPM BP: NOTIFY MD IF BP <90/55 OR BP>140/100 O2 SAT: NOTIFY MD IF PO2<93% ON ROOM AIR SEND TELEHEALTH REPORT TO VARNISH DIPPER AND CARDIOVASCULAR SURGEON THE FIRST WEEK OF CARE AND THEN BI-WEEKLY. PLEASE ADDITIONALLY COMMUNICATE ANY ABNORMALS AND NEW FINDINGS TO THE SURGEONS OFFICE. Discharge Disposition: HOME WITH HOME HEALTH SERVICES
== END 2021-10-06 14:40 | disposition home health service (06) | DRG 236 ==
LOC: 2ORMAIN 05:44 → 2SICU 14:11
PROVIDERS: ADMIT Surgery; ATTEND Surgery
PROC: B24BZZ4 Ultrasonography of Heart with Aorta, Transesophageal (ICD-10-PCS; principal; 2021-10-01 08:00)
PROC: 021109W Bypass Coronary Artery, Two Arteries from Aorta with Autologous Venous Tissue, Open Approach (ICD-10-PCS; principal; 2021-10-01 08:00)
PROC: 02100Z9 Bypass Coronary Artery, One Artery from Left Internal Mammary, Open Approach (ICD-10-PCS; principal; 2021-10-01 08:00)
PROC: 03BC4ZZ Excision of Left Radial Artery, Percutaneous Endoscopic Approach (ICD-10-PCS; principal; 2021-10-01 08:00)
PROC: 02L70CK Occlusion of Left Atrial Appendage with Extraluminal Device, Open Approach (ICD-10-PCS; principal; 2021-10-01 08:00)
PROC: 06BQ4ZZ Excision of Left Saphenous Vein, Percutaneous Endoscopic Approach (ICD-10-PCS; principal; 2021-10-01 08:00)
PROC: 02100AW Bypass Coronary Artery, One Artery from Aorta with Autologous Arterial Tissue, Open Approach (ICD-10-PCS; principal; 2021-10-01 08:00)
PROC: 5A1221Z Performance of Cardiac Output, Continuous (ICD-10-PCS; principal; 2021-10-01 08:00)
PROC: 06BP4ZZ Excision of Right Saphenous Vein, Percutaneous Endoscopic Approach (ICD-10-PCS; principal; 2021-10-01 08:00)
PROC: 30243N1 Transfusion of Nonautologous Red Blood Cells into Central Vein, Percutaneous Approach (ICD-10-PCS; 2021-10-01 08:00)
PROC: 30243M1 Transfusion of Nonautologous Plasma Cryoprecipitate into Central Vein, Percutaneous Approach (ICD-10-PCS; 2021-10-01 08:00)
PROC: 3E033XZ Introduction of Vasopressor into Peripheral Vein, Percutaneous Approach (ICD-10-PCS; 2021-10-01 08:00)
DX: I25.10 Atherosclerotic heart disease of native coronary artery without angina pectoris (principal); J90 Pleural effusion, not elsewhere classified; D62 Acute posthemorrhagic anemia; J98.11 Atelectasis; D69.6 Thrombocytopenia, unspecified; I95.9 Hypotension, unspecified; C61 Malignant neoplasm of prostate; E86.1 Hypovolemia; R73.9 Hyperglycemia, unspecified; N40.1 Benign prostatic hyperplasia with lower urinary tract symptoms; R33.8 Other retention of urine; D50.9 Iron deficiency anemia, unspecified; I10 Essential (primary) hypertension; E78.5 Hyperlipidemia, unspecified; Z79.82 Long term (current) use of aspirin; Z79.899 Other long term (current) drug therapy; Z86.16 Personal history of COVID-19; Z71.3 Dietary counseling and surveillance
CPT/HCPCS: 71045; 71046; 80048; 80053; 82330; 83735; 84450; 84460; 85025; 85027; 85384; 85520; 85610; 85730; 86850; 86891; 86900; 86901; 86920; 94002; 94640